=== PATIENT | female | born 1980 | race Caucasian/White ===

== ENCOUNTER 2024-11-19 12:04 | Outpatient (CLI) | payer BC, SELFPAY ==
[2024-11-19 13:31] LABS: Thyroid Stimulating Hormone 0.099 uIU/mL (0.465-4.680)
[2024-11-19 13:39] LABS: Free T4 Free Thyroxine 2.16 ng/dL (0.78-2.19)
--- OUTSIDE RECORDS SUMMARY | 2024-11-19 14:11 | XMS_ITS | Data Portability ---
Author Organization [facility] [place] Address [address] [place] [address] [address] [place] [address] Care Team Providers Care Fishing Worker Name Role Phone GIDEON ELDER Primary Care Provider Assessment Encounter Date Assessment Date Assessment LastModified by Organization Details LastModified Time 04/18/2022 04/18/2022 Annual gynecological exam performed. Patient will come back in a year unless there are new symptoms. Not available 04/18/2022 10:46:06 Plan of Treatment Reminders Order Date Submit Date Provider Last Modified By Organization Details Last Modified Time Details Appointments None recorded. Lab None recorded. Referral None recorded. Procedures None recorded. Surgeries None recorded. Imaging US, pelvis 2021 022 [address], [address], [place], [address], 18:02:09 US, transvagina l 2021 022 [address], [address], [place], [address], 18:02:09 Medication Orders progesteron e micronized 200 mg capsule 2021 022 [place] [id number], [address] [place], [address], 11:34:05 Patient TargetsNo targets recorded. Patient InstructionsNo instructions recorded. Reason for Referral None Reported. Results Created Date Observation Date Name Description Value Unit Range Abnormal Flag Note LastModifiedBy Organization Detail LastModifiedTime 03/03/20 22 03/03/2022 CBC W/DIF F WBC 8.1 10'3/ uL 3.6-10 .2 Not Available [facility] [address] [place], [address], 03/08/2022 17:47:33 03/03/20 22 03/03/2022 CBC W/DIF F RBC 4.70 10'6/ uL (based on docume nted legal sex) 4.10-5 .30 Not Available [facility] [address] [place], [address], 03/08/2022 17:47:33 03/03/20 22 03/03/2022 CBC W/DIF F HGB 13.4 g/dL (based on docume nted legal sex) 11.9-1 5.8 Not Available [facility] [address] [place], [address], 03/08/2022 17:47:33 03/03/20 22 03/03/2022 CBC W/DIF F HCT 42.1 % (based on docume nted legal sex) 37.4-4 8.3 Not Available [facility] [address] [place], [address], 03/08/2022 17:47:33 03/03/20 22 03/03/2022 CBC W/DIF F MCV 89.0 fL 82.0-9 9.0 Not Available [facility] [address] [place], [address], 03/08/2022 17:47:33 03/03/20 22 03/03/2022 CBC W/DIF F MCH 28.0 pg 27.0-3 3.0 Not Available [facility] [address] [place], [address], 03/08/2022 17:47:33 03/03/20 22 03/03/2022 CBC W/DIF F MCHC 32.0 g/dL 32.0-3 6.0 Not Available [facility] [address] [place] [address], [address], 03/08/2022 17:47:33 03/03/20 22 03/03/2022 CBC W/DIF F RDW 14.0 % 11.0-1 5.0 Not Available [facility] [address] [place], [address], 03/08/2022 17:47:33 03/03/20 22 03/03/2022 CBC W/DIF F plt 471 10'3/ uL 150-45 0 high Not Available [facility] [address] [place] [address], [address], 03/08/2022 17:47:33 03/03/20 22 03/03/2022 CBC W/DIF F MPV 10.4 fL 9.8-12 .7 Not Available [facility] [address] [place] [address], [address], 03/08/2022 17:47:33 03/03/20 22 03/03/2022 CBC W/DIF F NRBC's 0.00 % 0 Not Available [facility] [address] [place] [address], [address], 03/08/2022 17:47:33 03/03/20 22 03/03/2022 CBC W/DIF F absolute NRBCs 0.0 10'3/ uL 0 Not Available [facility] [address] [place] [address], [address], 03/08/2022 17:47:33 03/03/20 22 03/03/2022 CBC W/DIF F neutrophils 69.0 % 37.0-7 2.0 Not Available [facility] [address] [place] [address], [address], 03/08/2022 17:47:33 03/03/20 22 03/03/2022 CBC W/DIF F lymphocytes 20.0 % 16.0-4 8.0 Not Available [facility] [address] [place] [address], [address], 03/08/2022 17:47:33 03/03/20 22 03/03/2022 CBC W/DIF F monocytes 8.0 % 4.0-14 .0 Not Available [facility] [address] [place] [address], [address], 03/08/2022 17:47:33 03/03/20 22 03/03/2022 CBC W/DIF F eosinophils 2.0 % 0.0-9. 0 Not Available [facility] [address] [place] [address], [address], 03/08/2022 17:47:33 03/03/20 22 03/03/2022 CBC W/DIF F basophils 1.0 % 0.0-2. 0 Not Available [facility] [address] [place] [address], [address], 03/08/2022 17:47:33 03/03/20 22 03/03/2022 CBC W/DIF F immature granulocytes 0.0 % no define d refere nce range Not Available [facility] [address] [place] [address], [id number], 03/08/2022 17:47:33 03/03/20 22 03/03/2022 CBC W/DIF F absolute neutrophils 5.6 10'3/ uL 1.1-6. 0 Not Available [facility] [address] [place] [address], [address], 03/08/2022 17:47:33 03/03/20 22 03/03/2022 CBC W/DIF F absolute lymphocytes 1.6 10'3/ uL 0.7-3. 4 Not Available [facility] [address] [place], [address], 03/08/2022 17:47:33 03/03/20 22 03/03/2022 CBC W/DIF F absolute monocytes 0.6 10'3/ uL 0.3-1. 0 Not Available [facility] [address] [place], [address], 03/08/2022 17:47:33 03/03/20 22 03/03/2022 CBC W/DIF F absolute eosinophils 0.1 10'3/ uL 0.0-0. 6 Not Available [facility] [address] [place], [address], 03/08/2022 17:47:33 03/03/20 22 03/03/2022 CBC W/DIF F absolute basophils 0.1 10'3/ uL 0.0-0. 1 Not Available [facility] [address] [place], [address], 03/08/2022 17:47:33 03/03/20 22 03/03/2022 CBC W/DIF F absolute immature granulocytes 0.00 10'3/ uL 0.00-0 .10 3:19 AM: P indic ates parti al resul ts on a panel have been relea sed. Addit ional resul ts will follo w. 3:19 AM: This resul t has been final verif ied. No addit ional or de leon ed resul ts are expec donte. Not Available [facility] [address] [place], [address], 03/08/2022 17:47:33 03/03/20 22 03/03/2022 HEMOG LOBIN A1C hemoglobin A1C 5.1 % 0-5.6 The Ameri can Diabe candi Assoc iatio n recom mends that a prima ry goal of thera py shoul d be a HBA1C of < 7% and that physi williams meehan reeva luate the treat ment regim en in patie nts with HBA1C value s consi stent ly > 8%. <5.7% Lou l 5.7 - 6.4% Incre ased risk for diabe candi >=6.5 % Diagn ostic of diabe candi <7.0% Goal of thera py >8.0% Actio n sugge sted Not Available [facility] [address] [place], [address], 03/08/2022 17:47:34 03/03/20 22 03/03/2022 DHEA SULFA TE DHEA-sulfate 172 ug/dL Femal e Range s Age(y ) Range (ug/d L) 10-15 34-28 0 15-20 65-36 8 20-25 148-4 07 25-35 99-34 0 35-45 61-33 7 45-55 35-25 6 55-65 19-20 5 65-75 9-246 > 75 12-15 4 Not Available [facility] [address] [place], [address], 03/08/2022 17:47:34 03/03/20 22 03/03/2022 PROGE STERO NE progesterone 0.51 NG/mL This assay was perfo rmed using [employer] n reage nts and test kits. Value s obtai deepali with other assay metho ds or kits canno t be used inter de leon eably . Femal e Proge stero ne Range s: Folli cular phase 0.06- 0.89 ng/mL Ovula tion phase 0.12- 12.00 ng/mL Lutea l phase 1.83- 23.90 ng/mL Postm enopa usal< 0.05- 0.13 ng/mL Healt hy Pregn ant Women 1st Trime ster1 1.0-4 4.30 2nd Trime ster2 5.40- 83.30 3rd Trime ster5 8.70- 214.0 0 Not Available [facility] [address] [place], [address], 03/08/2022 17:47:35 03/03/20 22 03/03/2022 PROLA CTIN prolactin, total 18.30 NG/mL 4.79-2 3.30 This assay was perfo rmed using [employer] reage nts and test kits. Value s obtai deepali with other assay metho ds or kits canno t be used inter [facility] . Not Available [facility] [address] [place], [address], 03/08/2022 17:47:35 03/03/20 22 03/03/2022 FSH, LH, ESTRA DIOL estradiol 370.0 pg/mL This assay was perfo rmed using [employer] reage nts and test kits. Value s obtai deepali with other assay metho ds or kits canno t be used inter [facility] . Femal e Estra diol Range s: Folli cular phase 12.4- 233 pg/mL Ovula tion phase 41.0- 398 pg/mL Lutea l phase 22.3- 341 pg/mL Postm enopa usal< 5-138 pg/mL Healt hy Pregn ant Women 1st Trime ster1 54-32 43 pg/mL 2nd Trime ster1 561-2 1280 pg/mL 3rd Trime ster8 525-> 48394 pg/mL Not Available [facility] [address] [place], [address], 03/08/2022 17:47:35 03/03/20 22 03/03/2022 FSH, LH, ESTRA DIOL FSH 5.4 mIU/m L This assay was perfo rmed using [employer] reage nts and test kits. Value s obtai deepali with other assay metho ds or kits canno t be used inter [facility] . Femal es Folli cular : 3.5-1 2.5 mIU/m L Ovula tion: 4.7-2 1.5 mIU/m L Lutea l: 1.7-7 .7 mIU/m L Postm enopa use: 25.8- 134.8 mIU/m L Not Available [facility] [address] [place], [address], 03/08/2022 17:47:35 03/03/20 22 03/03/2022 FSH, LH, ESTRA DIOL LH 10.9 mIU/m L This assay was perfo rmed using [employer] reage nts and test kits. Value s obtai deepali with other assay metho ds or kits canno t be used inter de leon eably . Femal es Mid-F ollic ular: 2.4-1 2.6 mIU/m L Mid-C ycle: 14.0- 95.6 mIU/m L Mid-L uteal : 1.0-1 1.4 mIU/m L Postm enopa use: 7.7-5 8.5 mIU/m L Not Available [facility] [address] [place], [address], 03/08/2022 17:47:35 03/03/20 22 03/03/2022 HUMAN SEX HORMO NE JUANY NG GLOBU ODALYS sex hormone binding globulin 69.5 nmole s/L 18.2-1 35.5 Not Available [facility] [address] [place], [address], 03/08/2022 17:47:36 03/03/20 22 03/03/2022 TSH, REFLE X FREE T4 TSH 0.64 uIU/m L 0.30-5 .33 Not Available [facility] [address] [place], [address], 03/08/2022 17:47:36 03/03/20 22 03/03/2022 TESTO STERO NE, FREE( DIALY SIS) AND TOTAL (LC/M S/MS) testosterone , total 50 NG/dL 2-45 high For addit ional infor jose miguel braxton e refer to http: //matias wiggins.que stdia gnost ics.c om/fa q/Tot [facility] (This link is being provi ded for infor matio nal/ educa grecia l purpo ses only. ) This test was devel oped and its godfrey tical perfo rmanc e charles cteri stics have been deter mined by [facility]. It has not been clear ed or appro roseline by the FDA. This assay has been valid ated pursu ant to the CLIA regul ation s and is used for clini javed purpo ses. Not Available [facility] [address] [place], [address], 03/08/2022 17:47:37 03/03/2003/03/2022 TESTO STERO NE, FREE( DIALY SIS) AND TOTAL (LC/M S/MS) testosterone , free 3.5 pg/mL 0.1-6. 4 This test was devel oped and its godfrey tical perfo rmanc e charles cteri stics have been deter mined by [facility]. It has not been clear ed or appro roseline by the FDA. This assay has been valid ated pursu ant to the CLIA regul ation s and is used for clini javed purpo ses. Perfo rming Organ izati on Infor matio n: Site ID: [id number] Name: [facility]stic s-Ravi jacky Andradeen marshal Addre ss: [id number] [place] [address] Direc tor: Davis perkins M.D. Not Available [facility] [address] [place], [address], 03/08/2022 17:47:37 04/18/20 22 04/18/2022 IMAGE GUIDE D PAP AND HPV REGAR DLESS image guided Pap, HPV regardless of Pap result SEE RESULT S BELOW CASE REPOR T: Cytol ogy Gynec ologi javed Repor t Case: [id number] Autho ricaitlinn g Provi belkis: Leonardo Lopes MD Colle cted: 04/18 1305 Order ing Locat ion: [place] [facility] Recei roseline: 04/19 0226 First Scree n: Derian gabrielle, Alexandra Rescr een: Cecille hernandez, [place], [place] Speci men: Scree letitia Pap - Image d, Cervi x STATE MENT OF ADEQU ACY: Satis facto ry for evalu ation Trans forma tion zone compo nent prese nt FINAL DIAGN OSIS: Negat michoacano for Intra epith elial Lesio n or Jamilah shook (NIL) . Elect eitan pratikandrew popeye d by Cecille hernandez, [place], [place] on 2021 at 8:39 PM ----- ----- ----- ----- ----- ----- ----- ----- ----- ----- ----- ----- ----- ----- ----- ----- ----- ---- HPV RESUL TS: HPV mRNA E6/E7 : No HPV mRNA Detec donte NOTE: This high risk HPV mRNA assay detec ts fourt een high- risk HPV types (16, 18, 31, 33, 35, 39, 45, 51, 52, 56, 58, 59, 66, 68) witho ut diffe renti ation . COMME NT: Note: This speci men was revie wed by a Cytot echno logis t and/o r Patho logis t (as indic ated in this repor t) after evalu ation using the Thinp rep Imagi ng Syste m. CLINI JAVED INFOR MATIO N: Menst rual Statu s: LMP (if appli cable ): Clini javed Histo ry/Pr eviou s Pap: Type of Neopl steven (if appli cable ): Signi fican t Clini javed Findi ngs: Other Histo ry: Hormo tova (if appli cable ): PAP EDUCA GRECIA L NOTE: The Pap Test is a scree letitia test with an inher ent false negat michoacano rate. Liqui d-bas ed sampl ing may decre ase, but will not elimi elgin, false negat michoacano resul ts. A negat michoacano resul t does not precl ude the prese nce and/o r devel opmen t of disea se, since the prese nce of abnor mal cells in the sampl e depen ds on the locat ion of the lesio n and sampl ing techn ique. Arnol nued regul ar scree letitia is the best metho d of cance r preve ntion . If repor donte cytol ogic findi ng do not corre late with physi javed and/o r histo rical findi ngs, furth er inves tigat ion is recom olayinka d, as clini jaycee warra nted. Not Available [facility] [address], [place], [address], 04/22/2022 21:42:14 03/17/20 22 03/17/2022 US, pelvi s No observ ation record ed. [place] [address] [facility] [address], [place], [address], 03/17/2022 16:07:06 03/17/20 22 03/17/2022 US, trans vagin al No observ ation record ed. [place] [address] [facility] [address], [place], [address], 03/17/2022 16:07:15 03/17/20 22 03/17/2022 US, pelvi s No observ ation record ed. [email or web address] [address], [place], [address], 03/17/2022 20:01:11 03/17/20 22 03/17/2022 US, pelvi s No observ ation record ed. [email or web address], [place], [address], 03/17/2022 20:01:11 Result Notes None recorded. Procedures Surgical History Date Name Laterality Status Provider Name and Address Organization Details Recorded Time 2 HYSTEROSCOPY, WITH ENDOMETRIAL ABLATION (SURG) completed [facility] 06/13/2022 11:26:04 2 HYSTEROSCOPY, WITH ENDOMETRIAL ABLATION (SURG) completed [facility] 06/06/2022 11:27:48 2 Endometrial Ablation completed [facility] 06/09/2022 09:47:01 5 Date of Last Pap Smear completed [facility] 03/03/2022 09:44:49 0 completed [facility] 03/03/2022 09:44:49 8 Caesarean Section completed [facility] 06/09/2022 09:47:01 Ovarian Cystectomy completed [facility] 03/03/2022 09:45:00 Tubal Ligation completed [facility] 03/03/2022 09:45:00 Thyroid Surgery completed [facility] 03/03/2022 09:45:00 Colonoscopy completed [facility] 03/03/2022 09:45:00 Caesarean Section completed [facility] 03/03/2022 09:45:00 LEEP completed [facility] 06/09/2022 09:47:01 Dilation and Curettage completed [facility] 06/09/2022 09:47:01 Imaging Results Imaging Date Name Status LastModified by Organization Details LastModified Time 03/17/2022 US, pelvis completed [email or web address] [place] [address], [place], [address], 03/17/2022 16:07:06 03/17/2022 US, transvaginal completed [email or web address] [address], [place], [address], 03/17/2022 16:07:15 03/17/2022 US, pelvis completed [email or web address] [address], [place], [address], 03/17/2022 20:01:11 03/17/2022 US, pelvis completed [email or web address] [address], [place], [address], 03/17/2022 20:01:11 Procedure Notes None recorded. Medical Equipment None Reported. Allergies Allergen ID Allergen Name Allergen Category Reaction Reaction Severity Criticality Documentation Date Start Date Code Code System Note Provider Name and Address Organization Details Recorded Time 03450 amoxicill in medicatio n rash moderate Not available 03/03/2022 723 RxNorm Makeda Maggy [facility] 2 09:44:38 19666 Bactrim medicatio n hives severe Not available 03/03/2022 37159 9 RxNorm Makeda [facility] 2 09:44:38 Medications Name Sig Start Date Stop Date Status Note LastModified by Organization Details LastModified Time sulfamethoxazo le 800 mg-trimethopri m 160 mg tablet TAKE 1 TABLET BY MOUTH TWICE A DAY FOR 10 DAYS active Not Available Not Available No t Available progesterone micronized 200 mg capsule TAKE 1 CAPSULE EVERY DAY BY ORAL ROUTE FOR 12 DAYS. active Not Available Not Available No t Available hydrochlorothi azide 25 mg tablet TAKE 1 TABLET BY MOUTH EVERY DAY IN THE MORNING active Not Available Not Available No t Available levothyroxine 112 mcg tablet TAKE 2 TABLETS BY MOUTH DAILY BEFORE BREAKFAST . active Not Available Not Available No t Available Hydrochlorothi azide Plus 0.125 mg-50 mg tablet active Not Available Not Available Not Available ID NOW COVID-19 Test Kit TEST DIRECTED active Not Available Not Available No t Available Vitals Date Recorded Body height Body mass index (BMI) Body weight Systolic blood pressure Diastolic blood pressure Provider Name and Address Organization Details Last Updated DateTime 03/17/2022 173.99 cm 41.5 kg/m2 155746.0 9 g 124 mm[Hg] 91 mm[Hg] [facility] 2 14:33:58 Date Recorded Body height Body mass index (BMI) Body weight Systolic blood pressure Diastolic blood pressure Provider Name and Address Organization Details Last Updated DateTime 03/28/2022 173.99 cm 41.5 kg/m2 405909.0 9 g 137 mm[Hg] 96 mm[Hg] [facility] 2 10:22:05 Date Recorded Body height Body mass index (BMI) Body weight Systolic blood pressure Diastolic blood pressure Provider Name and Address Organization Details Last Updated DateTime 04/18/2022 173.99 cm 41.2 kg/m2 206650.9 g 125 mm[Hg] 91 mm[Hg] [facility] 2 10:47:28 Date Recorded Body height Body mass index (BMI) Body weight Systolic blood pressure Diastolic blood pressure Provider Name and Address Organization Details Last Updated DateTime 06/09/2022 173.99 cm 41.5 kg/m2 611840.0 9 g 123 mm[Hg] 90 mm[Hg] [facility] 2 09:46:39 Social History Question Answer Notes LastModified by Organizat ion Details LastModified Time Tobacco Smoking Status Never Smoker Ana Maria Diego [facility] 06/09/2022 09:30:06 Do You Have An Advance Directive? Yes Information n ot available 03/03/2022 What Is Your Level Of Alcohol Consumption? Occasional Information not available 03/03/2022 How Many Years Have You Consumed Alcohol? 21 Information not available 03/03/2022 Are You Blind Or Do You Have Difficulty Seeing? No Information n ot available 03/03/2022 What Is Your Level Of Caffeine Consumption? Moderate Information not available 03/03/2022 How Much Tobacco Do You Chew? None Information not available 03/03/2022 In The 14 Days Before Symptom Onset, Have You Had Close Contact With A Laboratory-confirm ed COVID-19 While That Case Was Ill? No Information n ot available 03/03/2022 In The 14 Days Before Symptom Onset, Have You Had Close Contact With A Person Who Is Under Investigation For COVID-19 While That Person Was Ill? No Information not available 03/03/2022 Have You Been To An Area Known To Be High Risk For COVID-19? No Information not available 03/03/2022 Are You Deaf Or Do You Have Serious Difficulty Hearing? No Information not available 03/03/2022 What Type Of Diet Are You Following? REGULAR Information n ot available 03/03/2022 What Is The Highest Grade Or Level Of School You Have Completed Or The Highest Degree You Have Received? 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 No Information not available 03/03/2022 Do You Use Protection During Sex? No Information not available 03/03/2022 Do You Use Your Seat Belt Or Car Seat Routinely? Yes Information not available 03/03/2022 Do You Have Smoke And Carbon Monoxide Detectors In Your Home? Yes Information not available 03/03/2022 How Much Tobacco Do You Smoke? No Information not available 03/03/2022 Do You Feel Stressed (tense, Restless, Nervous, Or Anxious, Or Unable To Sleep At Night)? [id number] Information not available 03/03/2022 Do You Use Any Illicit Or Recreational Drugs? No Information not available 03/03/2022 Do You Use Sunscreen Routinely? Yes Information not available 03/03/2022 Have You Used IV Drugs? No Information not available 03/03/2022 Sex: Unknown Functional Status Question Answer Note LastModified by Organizat ion Details LastModified Time Are you able to walk? YESWOREST Information not available 03/03/2022 What is your exercise level? Occasional Information not available 03/03/2022 Mental Status None recorded. Family History Relationship Description Onset Age of this Age Resolved Age Notes LastModified by Organization Details LastModified Time Son Diabetes mellitus Not available 2021 09:44:41 Maternal Grandmother Diabetes mellitus Not available 2021 09:44:41 Mother Blood coagulation disorder Not available 2021 09:44:41 Mother Hypertensive disorder Not available 2021 09:44:41 Mother Diabetes mellitus Not available 2021 09:44:41 Brother Hypertensive disorder Not available 2021 09:44:41 Paternal Grandmother Diabetes mellitus Not available 2021 09:44:41 Sister Hypertensive disorder Not available 2021 09:44:41 Medical History Condition Response Allergies (Food, seasonal, environmental ) Y History of STI Y Autoimmune disease Y Other Y Cancer Y Thyroid Problems Y Asthma Y Gynecological History Statement/Question Response Date of LMP 05/24/2022 On BCP's at Conception? N N Was last menstrual period normal N STIs/STDs N HPV Vaccine N Duration of Flow (days) 7 Current Control Method Tubal Ligat ion Age at First Child 17 Date of control 1980 Frequency of Cycle (Q days) 27 Sexually Active? Y Menses Monthly Y Age of first menstrual cycle 8 Date of Last Pap Smear 10/13/2014 Sexual Problems? N Desired Control Method Ablation LMP Definite 05/29/2000 N 04/08/2005 Obstetrics History GPAL:G 4 P 3 1 0 4 Type Value Full Term 3 Premature 1 Living 4 Total 4 Past Encounters Encounter ID Performer Location Encounter Start Date Encounter Closed Date Diagnosis/Indication Diagnosis SNOMED-CT Code Diagnosis ICD10 Code Diagnosis Note [id number] Kraig Lopes MD [facility] [address] [address] 03/03/2022 09:11:43 03/03/2022 10:26:07 Abnormal uterine bleeding 1493396846 9100 N93.9 [id number] Gloria Rivera [facility] [address] [address] 03/17/2022 13:43:48 03/17/2022 14:34:56 Pain in pelvis 01378444 R10.2 [id number] Kraig Lopes MD [facility] [address] [address] 03/17/2022 13:45:03 03/17/2022 16:02:12 Menorrhagia 992570117 N92.0 Dysmenorrhea 381274728 N 94.6 This patient is a 41-year-ol d female who presents for follow-up on episode of severe dysmenorrh ea and severe menorrhagi a. She has regular periods but 2 months ago to 3 months ago she missed a period/men ses and subsequent ly had a very heavy painful. She said it was profoundly painful and very heavy bleeding passing large clots. She came in for evaluation . Since that time she has had a regular period that was normal. Ultrasound was performed today. We reviewed ultrasound results together. Is fairly unremarkab le. Though, there is some irregulari ty to the endometriu m and the endometriu m is difficult to distinguis h from the myometrium . This may be adenomyosi s. She has a long history of irregular bleeding. She has never had irregular menses. Talked about follow-up. If she has another episode of painful heavy bleeding. We will treat her. We talked about treatment options. We spent over 20 minutes face-to-fa ce. More than 50% was counseling . She leans towards endometria l ablation if her heavy bleeding persist. [id number] Kraig Lopes MD [facility] [address] [address] 03/28/2022 09:54:21 03/28/2022 11:23:54 Menorrhagia [id number] N92.0 this patient is a 41-year-ol d female with severe menorrhagi a. We have agreed to perform endometria l ablation. She understand s the risks, benefits, and alternativ es. She has completed the informed consent process and is ready to proceed. [id number] Kraig Lopes MD [facility] [address] [address] 04/18/2022 10:22:55 04/18/2022 11:57:47 Abnormal uterine bleeding [id number] N93.9 Gynecologi c examination [id number] Z01.419 Annual gynecologi javed exam performed. Patient will come back in a year unless there are new symptoms. Suggest Calcium with Vitamin D if not eating in diet. Patient advised to get annual flu shot. Recommend yearly physicals and preform monthly breast exams. Genetic testing is available for patients with family history of cancer. Engage in safe sexual practices, use condoms. Encouraged to have daily exercise. Avoid tobacco and illicit drugs, moderation of alcohol. If BMI greater than 25 dietary consult advised. If you have any questions please call or email. Mammogram - ordered Pap - today [id number] Kraig Lopes MD [facility] [address] [address] 06/09/2022 09:29:25 06/09/2022 10:43:50 Menorrhagia [id number] N92.0 this patient is a 41-year-ol d female presents for follow-up on menorrhagi a. She underwent endometria l ablation. She has no abnormal symptoms. She is recovering normally it sounds. Will observe for bleeding. Health Concerns Section Related Observation LastModified by Organization Detai ls LastModified Time None Recorded Concern Status LastModified by Organization Details LastModified Time None Recorded Advance Directives Directive Y: Payers Encounter Date Sequence Insurance Name Policy Number Policy Ozuna Covered Member ID Ozuna Member ID Guarantor Name 03/17/2022 1 FORMERLY [facility] (MEDICAID HMO) [id number] Sara Yohannes [id number] Sara Yohannes 03/28/2022 1 FORMER[facility] (MEDICAID HMO) [id number] Sara Yohannes [id number] Sara Yohannes 04/18/2022 1 [facility]MER[facility] (MEDICAID HMO) [id number] Sara Yohannes [id number] Sara Yohannes 06/09/2022 1 FORMERLY [facility] (MEDICAID HM) [id number] Sara Yohannes [id number] Sara Yohannes Notes Date Note Type Note Provider Name and Address Organization Details Recorded Time 03/17/2022 text/html This patient is a 41-year-old female who presents for follow-up on episode of severe dysmenorrhea and severe menorrhagia. She has regular periods but 2 months ago to 3 months ago she missed a period/menses and subsequently had a very heavy painful. She said it was profoundly painful and very heavy bleeding passing large clots. She came in for evaluation. Since that time she has had a regular period that was normal. Ultrasound was performed today. We reviewed ultrasound results together. Is fairly unremarkable. Though, there is some irregularity to the endometrium and the endometrium is difficult to distinguish from the myometrium. This may be adenomyosis. She has a long history of irregular bleeding. She has never had irregular menses. Talked about follow-up. If she has another episode of painful heavy bleeding. We will treat her. We talked about treatment options. We spent over 20 minutes [id number]. More than 50% was counseling. She leans towards endometrial ablation if her heavy bleeding persist. Kraig Lopes MD [address], [place], [address], [facility] 03/17/2022 15:11:38 03/28/2022 text/html This patient is a 41-year-old female presents for follow-up on severe menorrhagia. We talked about her history again. We talked about her bleeding. She has a history of failed medical treatment. Shehas tried medical treatment and it failed. She has had a trial of OCP's and she has used Mirena. talked about procedures and surgeries. She is considering hysterectomy. We discussed endometrial ablation. We agreed to perform endometrial ablation. We spent more than 15 minutes [id number]. More than 50% was counseling. I explained the procedure in detail. The patient understands the procedure. The procedure was described to the patient in great detail. the patient also understands the risks. The risks were also explained in detail. She understands that injuries May occur during surgery. She understands these injuries can result in hospitalization, more surgery, and severe illness. She understands there is risk of hemorrhage and infection. Kraig Lopes MD [address], [place], [address], [facility] 03/28/2022 11:09:14 04/18/2022 text/html Annual GYNReport ed bypatient.History: no gynecologic complaints Menstrual cycle:aub, menorrhagia Urinary symptoms:No hematuria; No incontinence Vulva:No genital lesion Vagina:Normal vaginal discharge Breast:No breast pain; No breast lump; No nipple discharge Sexual complaints:No sexual complaints Menopausal Symptoms:No menopausal symptoms; Normal vaginal lubrication Psychological symptoms:No depression; No anxiety Preventive measures:Encourage self breast examination; Encourage regular exercise Kraig Lopes MD [address], [place], [address], [facility] 04/18/2022 11:41:25 06/09/2022 text/html this patient is a 41-year-old female presents for follow-up on menorrhagia. She underwent endometrial ablation. She has no abnormal symptoms. She is recovering normally it sounds. Will observe for bleeding. Kraig Lopes MD [address], [place], [address], [facility] 06/09/2022 10:19:05 OBGyn Episode No OBEpisode recorded.
--- OUTSIDE RECORDS SUMMARY | 2024-11-19 14:11 | XMS_ITS | Data Portability ---
Author Organization [facility] Address [address] [place] [address] Care Team Providers Care Individual Small Group Instructor Name Role Phone SUN ELDER Primary Care Provider Assessment Encounter Date Assessment Date Assessment LastModified by Organization Details LastModified Time 07/19/2023 07/19/2023 F/u in 4 mo for routine labs. [email or web address] Not available 07/19/2023 13:06:14 12/13/2023 12/13/2023 Sections of the HPI, exam and assessment completed by NATALY Cortez student and have been reviewed by me. I agree with the exam findings, assessment and plan except where specifically documented or amended. -Sun Elder, [facility], PAUmeshC [email or web address] Not available 12/13/2023 15:01:31 Plan of Treatment Reminders Order Date Submit Date Provider Last Modified By Organization Details Last Modified Time Details Appointments None recorded. Lab TSH + free T4, serum 2023 [facility], [address] [facility], [address], [place], [address], 12:16:57 T3, free, serum or plasma 2023 024 [facility], [address] [facility], [address], [place], [address], 4 12:16:58 cytology report, thin prep, smear or scraping, cervical or vaginal - brush and broom 2023 024 [facility], [address] [facility], [address], [place], [address], 4 11:10:32 lh + FSH, serum 2023 024 [facility], [address] [facility], [address], [place], [address], 4 08:34:38 estradiol , serum 2023 024 [facility], [address] [facility], [address], [place], [address], 4 08:34:36 progester one, serum 2023 024 [facility], [address] [place] [address], [address], [place], [address], 4 08:34:36 CMP, serum or plasma 2023 024 [facility], [address], [place], [address], 4 08:34:34 lipid panel, serum 2023 024 [facility], [address], [place], [address], 4 08:34:34 CBC w/ auto diff 2023 024 [facility], [address], [place], [address], 4 08:34:37 HbA1c (hemoglob in A1c), blood 2023 024 [facility], [address], [place], [address], 4 08:34:35 TSH + free T4, serum 2023 024 [facility], [address], [place], [address], 4 08:34:33 pathology study - SKIN TAGS TO BACK, SHOULDER, ABDOMEN, AND AXILLA 2022 023 [facility], [facility], [address], [place], [address], 3 19:08:31 TSH + free T4, serum 2022 023 [facility], [address] [place] [address], [address], [place], [address], 3 08:22:10 T3, free, serum or plasma 2022 023 [facility], [address] [place] [address], [address], [place], [address], 3 08:22:10 Referral endocrino logy referral [address] - Endocrinology , [address], [place], [address], 4 08:01:23 obstetric judy and gynecolog ist referral 2023 024 ketan Márquez MD, [address] [facility] , [address], [place], [address], 4 12:07:10 endocrino logy referral - PREFERS TO STAY IN [place] 2022 023 milady Oakes MD, [address], [place], [address], 3 11:49:54 Procedures None recorded. Surgeries None recorded. Imaging barium swallow study 2023 024 [place] [facility] (Radiology), [address] [place], [address], 4 08:02:55 MAMMO, screening , bilateral 2023 024 [email or web address] [place] [facility] ([facility]), [address] [place], [address], 4 11:35:05 Medication Orders fluticaso ne propionat e 50 mcg/actua tion nasal spray,felice pension 2023 024 [id number], [address], [place], [address], 4 10:05:29 levothyro xine 112 mcg tablet 2023 024 [facility], [address], [place], [address], 4 11:11:26 Ventolin HFA 90 mcg/actua tion aerosol inhaler 2023 024 [facility] [address], [place], [address], 4 08:35:57 hydrochlo rothiazid e 25 mg tablet 2023 024 [facility], [address], [place], [address], 4 10:07:06 azithromy christopher 250 mg tablet 2023 024 [email or web address] [facility], [address], [place], [address], 4 13:30:00 hydrochlo rothiazid e 25 mg tablet 2022 023 [facility], [address], [place], [address], 3 10:57:04 levothyro xine 112 mcg tablet 2022 023 cmeliecer [id number], [address], [place], [address], 4 11:11:26 Patient TargetsNo targets recorded. Patient Instructions Encounter Date Encounter Id Patient Instructions Last Modified By Organization Details Last Modified Time 07/19/2023 [id number] A healthy lifestyle: care instructions [email or web address] Not available 07/19/2023 10:48:03 12/13/2023 [id number] A healthy lifestyle: care instructions [email or web address] Not available 12/13/2023 10:03:07 01/03/2024 [id number] A healthy lifestyle: care instructions [email or web address] Not available 01/03/2024 14:53:36 Reason for Referral Endocrinology Referral for M alignant tumor of thyroid gland [place]REF[place] IN [place] Referring Physician: [facility], Encounter Date: 07/19/2023 Endocrinology Referral for M alignant tumor of thyroid gland Referring Physician: [facility], Encounter Date: 12/13/2023 Client Business Manager And Gynecologis t Referral for Screening for malignant neoplasm of cervix Referring Physician: Sun Elder [facility], Encounter Date: 12/13/2023 Results Created Date Observation Date Name Description Value Unit Range Abnormal Flag Note LastModifiedBy Organization Detail LastModifiedTime 07/19/2007/20/2023 TSH+F REE T4 TSH 0.119 uIU/m L 0.450- 4.500 below low normal Not Available [facility] ([facility]) [address], [place], [address], 07/20/2023 08:22:10 07/19/20 23 07/20/2023 TSH+F REE T4 T4,free(dire ct) 2.10 NG/dL 0.82-1 .77 above high normal Not Available [facility] ([facility]) [address] [facility], [place], [address], 07/20/2023 08:22:10 07/19/20 23 07/20/2023 TRIIO DOTHY TERRI E (T3), FREE triiodothyro nine (T3), free 3.1 pg/mL 2.0-4. 4 Not Available [facility] ([facility]) [address] [facility], [place], [address], 07/20/2023 08:22:10 08/09/20 23 08/24/2023 PATHO LOGY REPOR T . Commbruce t Mater ial submi tted: . body - SKIN TAGS, BACK, SHOUL GUSTABO, ABDOM EN, AXILL A RECEI ISABEL IN ONE CONTA INER Not Available [facility] ([facility]) [address] [facility], [place], [address], 08/24/2023 19:08:31 08/09/20 23 08/24/2023 PATHO LOGY REPOR T . Arash t Clini nicole provi ded ICD-1 0: L91.8 Not Available [facility] (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 TMZ 08/24 0923 Local Not Available [facility] ([facility]) [address] [facility], [place], [address], 08/24/2023 19:08:31 08/09/20 23 08/24/2023 PATHO LOGY REPOR T . Commen t Maci nye d: . Felipe marquez MD, [place] topat holog ist Not Available [facility] ([facility]) [address] [facility], [place], [address], 08/24/2023 19:08:31 08/09/2008/24/2023 PATHO LOGY REPOR T . Commen t Gross descr iptio n: . 1 Conta iner, forma jhonathan-f illed , label ed with patie nt ident ifica tion. SKIN TAGS, BACK, SHOUL GUSTABO, ABDOM EN, AXILL A RECEI ISABEL IN ONE CONTA INER: RECEI ISABEL ARE 4 FRAGM ENT(S ) OF WRINK LED POLYP OID BROWN SKIN TISSU E MEASU RING 0.7 X 0.5 X 0.4 CM; 0.5 x 0.4 x 0.3 CM AND 0.4 x 0.3 x 0.2 CM. THE SURGI ANTONIA GORDY N IS INKED BLUE, GREEN , RED AND ORANG E. THE SPECI MEN IS BISEC KUSUM AND SUBMI TTED IN CASSE TTE(S ) a1-a2 . THERE ARE 6 PIECE S TOTAL . SVO/S VO 08/22 0434 Local Not Available [facility] ([facility]) [address] [facility], [place], [address], 08/24/2023 19:08:31 08/09/20 23 08/24/2023 PATHO LOGY REPOR T . Commen t Patho logis t provi ded ICD-1 0: L91.9 , D22.5 Not Available [facility] ([facility]) [address] [facility], [place], [address], 08/24/2023 19:08:31 08/09/20 23 08/24/2023 PATHO HECTOR York Doylebruce [place] CPT . 46137 1 Not Available [facility] ([facility]) [address] [facility], [place], [address], 08/24/2023 19:08:31 12/13/19 24 12/14/2023 TSH+F REE T4 TSH 0.107 uIU/m L 0.450- 4.500 below low normal Not Available [facility] ([facility]) [address] [facility], [place], [address], 12/14/2023 08:34:33 12/13/19 24 12/14/2023 TSH+F REE T4 T4,free(dire ct) 2.06 NG/dL 0.82-1 .77 above high normal Not Available [facility] ([facility]) [address] [facility], [place], [address], 12/14/2023 08:34:33 12/13/19 24 12/14/2023 LIPID PANEL WITH LDL/H DL RATIO cholesterol, total 180 mg/dL 100-19 9 Not Available [facility] ([facility]) [address] [place], [address], 12/14/2023 08:34:34 12/13/19 24 12/14/2023 LIPID PANEL WITH LDL/H DL RATIO triglyceride s 107 mg/dL 0-149 Not Available [facility]) [address] [place], [address], 12/14/2023 08:34:34 12/13/19 24 12/14/2023 LIPID PANEL WITH LDL/H DL RATIO HDL cholesterol 44 mg/dL >39 Not Available [facility]) [address] [place], [address], 12/14/2023 08:34:34 12/13/19 24 12/14/2023 LIPID PANEL WITH LDL/H DL RATIO VLDL cholesterol antonia 19 mg/dL 5-40 Not Available [facility]) [address] [place], [address], 12/14/2023 08:34:34 12/13/19 24 12/14/2023 LIPID PANEL WITH LDL/H DL RATIO LDL chol calc ([facility]) 117 mg/dL 0-99 above high normal Not Available [facility] ([facility]) [address] [facility], [place], [address], 12/14/2023 08:34:34 12/13/19 24 12/14/2023 LIPID PANEL WITH LDL/H DL RATIO LDL/HDL ratio 2.7 ratio 0.0-3. 2 LDL/H DL Ratio Men Women 1/2 Avg.R isk 1.0 1.5 Avg.R isk 3.6 3.2 2X Avg.R isk 6.2 5.0 3X Avg.R isk 8.0 6.1 Not Available [facility] ([facility]) [address] [place], [address], 12/14/2023 08:34:34 12/13/19 24 12/14/2023 COMP. METAB OLIC PANEL (14) glucose 91 mg/dL 70-99 Not Available [facility] ([facility]) [address] [place], [address], 12/14/2023 08:34:34 12/13/19 24 12/14/2023 COMP. METAB OLIC PANEL (14) BUN 13 mg/dL 6-24 Not Available [facility] ([facility]) [address] [place], [address], 12/14/2023 08:34:34 12/13/19 24 12/14/2023 COMP. METAB OLIC PANEL (14) creatinine 0.84 mg/dL 0.57-1 .00 Not Available [facility] ([facility]) [address] [place], [address], 12/14/2023 08:34:34 12/13/19 24 12/14/2023 COMP. METAB OLIC PANEL (14) eGFR 88 mL/mi n/1.7 3 >59 Not Available [facility] ([facility]) [address] [facility], [place], [address], 12/14/2023 08:34:34 12/13/19 24 12/14/2023 COMP. METAB OLIC PANEL (14) BUN/creatini ne ratio 15 9-23 Not Available [facility]) [address] [facility], [place], [address], 12/14/2023 08:34:34 12/13/19 24 12/14/2023 COMP. METAB OLIC PANEL (14) sodium 140 mmol/ L 134-14 4 Not Available [facility] ([facility]) [address] [facility], [place], [address], 12/14/2023 08:34:34 12/13/19 24 12/14/2023 COMP. METAB OLIC PANEL (14) potassium 3.7 mmol/ L 3.5-5. 2 Not Available [facility] ([facility]) [address] [facility], [place], [address], 12/14/2023 08:34:34 12/13/19 24 12/14/2023 COMP. METAB OLIC PANEL (14) chloride 99 mmol/ L 96-106 Not Available [facility] ([facility]) [address] [facility], [place], [address], 12/14/2023 08:34:34 12/13/19 24 12/14/2023 COMP. METAB OLIC PANEL (14) carbon dioxide, total 25 mmol/ L 20-29 Not Available [facility] ([facility]) [address] [facility], [place], [address], 12/14/2023 08:34:34 12/13/19 24 12/14/2023 COMP. METAB OLIC PANEL (14) calcium 9.6 mg/dL 8.7-10 .2 Not Available [facility] ([facility]) [address], [place], [address], 12/14/2023 08:34:34 12/13/19 24 12/14/2023 COMP. METAB OLIC PANEL (14) protein, total 7.6 g/dL 6.0-8. 5 Not Available [facility] ([facility]) [address], [place], [address], 12/14/2023 08:34:34 12/13/19 24 12/14/2023 COMP. METAB OLIC PANEL (14) albumin 4.2 g/dL 3.9-4. 9 Not Available [facility] ([facility]) [address], [place], [address], 12/14/2023 08:34:34 12/13/19 24 12/14/2023 COMP. METAB OLIC PANEL (14) globulin, total 3.4 g/dL 1.5-4. 5 Not Available [facility] ([facility]) [address] [place], [address], 12/14/2023 08:34:34 12/13/19 24 12/14/2023 COMP. METAB OLIC PANEL (14) A/G ratio 1.2 1.2-2. 2 Not Available [facility] ([facility]) [address] [place], [address], 12/14/2023 08:34:34 12/13/19 24 12/14/2023 COMP. METAB OLIC PANEL (14) bilirubin, total 0.4 mg/dL 0.0-1. 2 Not Available [facility] ([facility]) [address], [place], [address], 12/14/2023 08:34:34 12/13/19 24 12/14/2023 COMP. METAB OLIC PANEL (14) alkaline phosphatase 95 IU/L 44-121 Not Available [facility]) [address] [place], [address], 12/14/2023 08:34:34 12/13/19 24 12/14/2023 COMP. METAB OLIC PANEL (14) AST (SGOT) 14 IU/L 0-40 Not Available [facility] ([facility]) [address] [place], [address], 12/14/2023 08:34:34 12/13/19 24 12/14/2023 COMP. METAB OLIC PANEL (14) ALT (SGPT) 12 IU/L 0-32 Not Available [facility] ([facility]) [address] [place], [address], 12/14/2023 08:34:34 12/13/19 24 12/14/2023 HEMOG LOBIN A1C hemoglobin A1C 5.2 % 4.8-5. 6 Predi abete s: 5.7 - 6.4 Diabe candi: >6.4 Glyce aidan contr ol for adult s with diabe candi: <7.0 Not Available [facility] ([facility]) [address] [place], [address], 12/14/2023 08:34:35 12/13/19 24 12/14/2023 PROGE STERO NE progesterone 2.9 NG/mL Folli cular phase 0.1 - 0.9 Lutea l phase 1.8 - 23.9 Ovula tion phase 0.1 - 12.0 Pregn ant First trime ster 11.0 - 44.3 Secon d trime ster 25.4 - 83.3 Third trime ster 58.7 - 214.0 Postm enopa usal 0.0 - 0.1 Not Available [facility] ([facility]) [address] [place], [address], 12/14/2023 08:34:36 12/13/19 24 12/14/2023 ESTRA DIOL estradiol 101.0 pg/mL Adult Femal e Range Folli cular phase 12.5 - 166.0 Ovula tion phase 85.8 - 498.0 Lutea l phase 43.8 - 211.0 Postm enopa usal <6.0 - 54.7 Pregn yuly 1st trime ster 215.0 - >4300 .0 Vaishali ECLIA metho dolog y Not Available [facility] ([facility]) [address] [facility], [place], [address], 12/14/2023 08:34:36 12/13/19 24 12/14/2023 CBC WITH DIFFE RENTI AL/PL ATELE T WBC 7.6 x10e3 /uL 3.4-10 .8 Not Available [facility] ([facility]) [address] [place], [address], 12/14/2023 08:34:37 12/13/19 24 12/14/2023 CBC WITH DIFFE RENTI AL/PL ATELE T RBC 4.72 x10e6 /uL 3.77-5 .28 Not Available [facility] ([facility]) [address] [place], [address], 12/14/2023 08:34:37 12/13/19 24 12/14/2023 CBC WITH DIFFE RENTI AL/PL ATELE T hemoglobin 13.8 g/dL 11.1-1 5.9 Not Available [facility] ([facility]) [address] [place], [address], 12/14/2023 08:34:37 12/13/19 24 12/14/2023 CBC WITH DIFFE RENTI AL/PL ATELE T hematocrit 40.2 % 34.0-4 6.6 Not Available [facility] ([facility]) [address] [place], [address], 12/14/2023 08:34:37 12/13/19 24 12/14/2023 CBC WITH DIFFE RENTI AL/PL ATELE T MCV 85 fL 79-97 Not Available [facility] ([facility]) [address] [facility], [place], [address], 12/14/2023 08:34:37 12/13/19 24 12/14/2023 CBC WITH DIFFE RENTI AL/PL ATELE T MCH 29.2 pg 26.6-3 3.0 Not Available [facility] ([facility]) [address] [facility], [place], [address], 12/14/2023 08:34:37 12/13/19 24 12/14/2023 CBC WITH DIFFE RENTI AL/PL ATELE T MCHC 34.3 g/dL 31.5-3 5.7 Not Available [facility] ([facility]) [address] [facility], [place], [address], 12/14/2023 08:34:37 12/13/19 24 12/14/2023 CBC WITH DIFFE RENTI AL/PL ATELE T RDW 13.0 % 11.7-1 5.4 Not Available [facility] ([facility]) [address] [facility], [place], [address], 12/14/2023 08:34:37 12/13/19 24 12/14/2023 CBC WITH DIFFE RENTI AL/PL ATELE T platelets 441 x10e3 /uL 150-45 0 Not Available [facility] ([facility]) [address] [facility], [place], [address], 12/14/2023 08:34:37 12/13/19 24 12/14/2023 CBC WITH DIFFE RENTI AL/PL ATELE T neutrophils 65 % notest ab. Not Available [facility] ([facility]) [address] [facility], [place], [address], 12/14/2023 08:34:37 12/13/19 24 12/14/2023 CBC WITH DIFFE RENTI AL/PL ATELE T lymphs 22 % notest ab. Not Available [facility] ([facility]) [address] [facility], [place], [address], 12/14/2023 08:34:37 12/13/19 24 12/14/2023 CBC WITH DIFFE RENTI AL/PL ATELE T monocytes 6 % notest ab. Not Available [facility] ([facility]) [address] [facility], [place], [address], 12/14/2023 08:34:37 12/13/19 24 12/14/2023 CBC WITH DIFFE RENTI AL/PL ATELE T eos 6 % notest ab. Not Available [facility] ([facility]) [address] [facility], [place], [address], 12/14/2023 08:34:37 12/13/19 24 12/14/2023 CBC WITH DIFFE RENTI AL/PL ATELE T basos 1 % notest ab. Not Available [facility] ([facility]) [address] [facility], [place], [address], 12/14/2023 08:34:37 12/13/19 24 12/14/2023 CBC WITH DIFFE RENTI AL/PL ATELE T neutrophils (absolute) 4.9 x10e3 /uL 1.4-7. 0 Not Available [facility] ([facility]) [address] [facility], [place], [address], 12/14/2023 08:34:37 12/13/19 24 12/14/2023 CBC WITH DIFFE RENTI AL/PL ATELE T lymphs (absolute) 1.7 x10e3 /uL 0.7-3. 1 Not Available [facility] ([facility]) [address] [facility], [place], [address], 12/14/2023 08:34:37 12/13/19 24 12/14/2023 CBC WITH DIFFE RENTI AL/PL ATELE T monocytes(ab solute) 0.5 x10e3 /uL 0.1-0. 9 Not Available [facility] ([facility]) [address] [place], [address], 12/14/2023 08:34:37 12/13/19 24 12/14/2023 CBC WITH DIFFE RENTI AL/PL ATELE T eos (absolute) 0.4 x10e3 /uL 0.0-0. 4 Not Available [facility] ([facility]) [address] [facility], [place], [address], 12/14/2023 08:34:37 12/13/19 24 12/14/2023 CBC WITH DIFFE RENTI AL/PL ATELE T baso (absolute) 0.1 x10e3 /uL 0.0-0. 2 Not Available [facility] ([facility]) [address] [place], [address], 12/14/2023 08:34:37 12/13/19 24 12/14/2023 CBC WITH DIFFE RENTI AL/PL ATELE T immature granulocytes 0 % notest ab. Not Available [facility] ([facility]) [address] [place], [address], 12/14/2023 08:34:37 12/13/19 24 12/14/2023 CBC WITH DIFFE RENTI AL/PL ATELE T immature grans (abs) 0.0 x10e3 /uL 0.0-0. 1 Not Available [facility] ([facility]) [address] [place], [address], 12/14/2023 08:34:37 12/13/19 24 12/14/2023 FSH AND LH LH 10.8 mIU/m L Adult Femal e Range Folli cular phase 2.4 - 12.6 Ovula tion phase 14.0 - 95.6 Lutea l phase 1.0 - 11.4 Postm enopa usal 7.7 - 58.5 Not Available [facility] ([facility]) [address] [place], [address], 12/14/2023 08:34:38 12/13/19 24 12/14/2023 FSH AND LH FSH 10.8 mIU/m L Adult Femal e Range Folli cular phase 3.5 - 12.5 Ovula tion phase 4.7 - 21.5 Lutea l phase 1.7 - 7.7 Postm enopa usal 25.8 - 134.8 Not Available [facility] ([facility]) [address] [place], [address], 12/14/2023 08:34:38 01/03/20 24 01/05/2024 IGP, APTIM A HPV, RFX 16/18 ,45 HPV aptima Negati ve negati ve This nucle ic acid ampli ficat ion test detec ts fourt een high- risk HPV types (16,1 8,31, 33,35 ,39,4 5,51, 52,56 ,58,5 9,66, 68) witho ut diffe renti ation . Not Available [facility] ([facility]) [address] [facility], [place], [address], 01/08/2024 11:10:32 01/03/20 24 01/08/2024 IGP, APTIM A HPV, RFX 16/18 ,45 diagnosis: Commen t NEGAT ERLINDA FOR INTRA EPITH ELIAL LESIO N OR MALIG YULIA . THIS SPECI MEN WAS RESCR EENED PART OF OUR QUALI TY CONTR OL PROGR AM. Not Available [facility] ([facility]) [address] [facility], [place], [address], 01/08/2024 11:10:32 01/03/20 24 01/08/2024 IGP, APTIM A HPV, RFX 16/18 ,45 specimen adequacy: Commen t Satis facto ry for evalu ation . Endoc ervic al and/o r squam ous metap lasti c cells (endo cervi antonia compo nent) are prese nt. Not Available [facility] ([facility]) [address] [place], [address], 01/08/2024 11:10:32 01/03/20 24 01/08/2024 IGP, APTIM A HPV, RFX 16/18 ,45 clinician provided ICD10: Arash martinez Z01.4 19 Not Available [facility] ([facility]) [address] [place], [address], 01/08/2024 11:10:32 01/03/20 24 01/08/2024 IGP, APTIM A HPV, RFX 16/18 ,45 performed by: Arash resendiz, Cytot echno logis t (ASCP ) Not Available [facility] ([facility]) [address] [place], [address], 01/08/2024 11:10:32 01/03/20 24 01/08/2024 IGP, APTIM A HPV, RFX 16/18 ,45 QC reviewed by: Arash schultz, Cytot echno logis t (ASCP ) Not Available [facility] ([facility]) [address] [place], [address], 01/08/2024 11:10:32 01/03/20 24 01/08/2024 IGP, APTIM A HPV, RFX 16/18 ,45 . . Not Available [facility] ([facility]) [address] [place], [address], 01/08/2024 11:10:32 01/03/20 24 01/08/2024 IGP, APTIM A HPV, RFX 16/18 ,45 note: Arash martinez The Pap smear is a scree letitia test desig deepali to aid in the detec tion of aubrey ligna nt and malig nant condi tions of the uteri ne cervi x. It is not a diagn ostic proce dure and shoul d not be used as the sole means of detec ting cervi antonia cance r. Both false -posi tive and false -nega tive repor ts do occur . Not Available [facility] ([facility]) [address] [place], [address], 01/08/2024 11:10:32 01/03/20 24 01/08/2024 IGP, APTIM A HPV, RFX 16/18 ,45 test methodology: Commen t This liqui d based ThinP rep(R ) pap test was darline palumbo with the use of an image guide zoran rose Not Available [facility] ([facility]) [address] [place], [address], 01/08/2024 11:10:32 01/03/20 24 01/08/2024 IGP, APTIM A HPV, RFX 16/18 ,45 HPV genotype reflex Commen t Crite tomeka not met, HPV Genot ype not perfo rmed. Not Available [facility] ([facility]) [address] [place], [address], 01/08/2024 11:10:32 05/29/20 24 05/30/2024 TSH+F REE T4 TSH 0.222 uIU/m L 0.450- 4.500 below low normal Not Available [facility] ([facility]) [address] [place], [address], 05/30/2024 12:16:57 05/29/20 24 05/30/2024 TSH+F REE T4 T4,free(dire ct) 2.04 NG/dL 0.82-1 .77 above high normal Not Available [facility] ([facility]) [address] [place], [address], 05/30/2024 12:16:57 05/29/20 24 05/30/2024 TRIIO DOTHY TERRI E (T3), FREE triiodothyro nine (T3), free 2.8 pg/mL 2.0-4. 4 Not Available [facility] ([facility]) [address] [place], [address], 05/30/2024 12:16:58 02/02/20 24 01/31/2024 US, thyro id No observ ation record ed. [address], [place], [address], 02/05/2024 14:51:52 Result Notes None recorded. Problems Name Problem SNOMED Code Status Onset Date Resolution Date Notes Provider Name and Address Organization Details Recorded Time Asthma 782911936 Active 2020 NATALY SCHMIDT Attn: Mike leal,[address] [facility], [place], [address], [place] - [facility] 2 10:20:06 Hypothyroidism 45744391 Active 2020 NATALY SCHMIDT Attn: Mike leal,[address] [facility], [place], [address], [facility] - [facility] 2 10:20:04 Malignant tumor of thyroid gland 320885771 Active 2020 2014 at [facility]. NATALY SCHMIDT Attn: Mike leal,[address] [facility], [place], [address], [place] - [facility] 2 10:20:02 Essential hypertension 62324284 Active 2021 NATALY SCHMIDT Attn: Mike leal,[address] [facility], [place], [address], [place] - [facility] 2 10:40:36 Problem Notes None recorded. Procedures Surgical History Date Name Laterality Status Provider Name and Address Organization Details Recorded Time 01/03/20 24 Date of Last Pap Smear completed Kaci Andersen RN [place] - [place] 01/09/2024 16:51:28 08/28/19 04 loop electrosurgical excision procedure completed ALEXANDER Lopez Attn: Accounting, [address] [place], [address], [facility] - [facility] 01/03/2024 14:52:28 Tubal Ligation completed MYLES Ramirez [place] - [place] 01/03/2024 13:31:02 Endometrial Ablation completed Shayna Duran Sumeet [place] - [place] 01/03/2024 13:31:11 Imaging Results Imaging Date Name Status LastModified by Organiz ation Details LastModified Time 01/31/2024 US, thyroid completed [address] [place], [address], 02/05/2024 14:51:52 Procedure Notes None recorded. Medical Equipment None Reported. Allergies Allergen ID Allergen Name Allergen Category Reaction Reaction Severity Criticality Documentation Date Start Date Code Code System Note Provider Name and Address Organization Details Recorded Time 034532 amoxicill in medicatio n rash Not available Not available 10/02/2020 723 RxNorm Not Available Not Available Not Available 620009 Bactrim medicatio n hives severe Not available 09/14/2021 36560 9 RxNorm Not Available Not Available Not Available Medications Name Sig Start Date Stop Date Status Note LastModified by Organization Details LastModified Time loperamide 2 mg capsule 10/02 completed Not Available Not Available Not Available azithromyci n 250 mg tablet TAKE 2 TABLETS BY MOUTH TODAY, THEN TAKE 1 TABLET DAILY FOR 4 DAYS DIRECTED 01/02 completed Not Available Not Available Not Available benzonatate 200 mg capsule TAKE 1 CAPSULE BY MOUTH UP TO 3 TIMES A DAY NEEDED FOR COUGH. active Not Available Not Available No t Available Debrox 6.5 % ear drops INSTILL 5 DROPS INTO AFFECTED EAR(S) BY OTIC ROUTE 2 TIMES PER DAY X7 DAYS 10/18 completed Not Available Not Available Not Available sulfamethox azole 800 mg-trimetho prim 160 mg tablet 09/14 completed Not Available Not Available Not Available progesteron e micronized 200 mg capsule TAKE 1 CAPSULE EVERY DAY BY ORAL ROUTE FOR 12 DAYS. 10/18 completed Not Available Not Available Not Available fluoxetine 10 mg capsule Take 1 capsule every day by oral route in the morning for 30 days. 09/14 completed Not Available Not Available Not Available levothyroxi ne 200 mcg tablet TAKE 1 TAB BY MOUTH EVERY DAY BEFORE MEALS FOR 30 DAYS FOR HYPOTHYRO IDISM 2024 active Not Available Not Available Not Avai lable hydrochloro thiazide 25 mg tablet TAKE 1 TABLET EVERY DAY BY ORAL ROUTE IN THE MORNING FOR 90 DAYS, FOR HIGH BLOOD PRESSURE. active Not Available Not Available No t Available methylpredn isolone 4 mg tablets in a dose pack TAKE 6 TABLETS ON DAY 1 DIRECTED ON PACKAGE AND DECREASE BY 1 TAB EACH DAY FOR A TOTAL OF 6 DAYS active Not Available Not Available No t Available fluticasone propionate 50 mcg/actuati on nasal spray,suspe nsion SPRAY 1 SPRAY TWICE A DAY BY INTRANASA L ROUTE DIRECTED FOR 30 DAYS, FOR NASAL CONGESTIO N. active Not Available Not Available No t Available doxycycline hyclate 100 mg tablet TAKE 1 TABLET BY MOUTH TWICE A DAY FOR 7 DAYS 07/19 completed Not Available Not Available Not Available levothyroxi ne 112 mcg tablet TAKE 2 TABLETS BY MOUTH DAILY BEFORE BREAKFAST 2023 active Not Available Not Available Not Avai lable Ventolin HFA 90 mcg/actuati on aerosol inhaler Inhale 2 puffs every 4-6 hours by inhalatio n route as needed for 30 days. 2023 active Not Available Not Available Not Avai lable azithromyci n 500 mg tablet TAKE 1 TABLET BY MOUTH EVERY DAY FOR 5 DAYS 07/19 completed Not Available Not Available Not Available Ciprodex 0.3 %-0.1 % ear drops,suspe nsion INT 4 DROPS IN BOTH EARS BID AND PLACE COTTON IN EAR AND LEAVE IN FOR 20 MINUTES 10/02 completed Not Available Not Available Not Available progesteron e 10/18 completed Not Available Not Available Not Available ID NOW COVID-19 Test Kit TEST DIRECTED 01/12 completed Not Available Not Available Not Available Vitals Date Recorded Body height Body mass index (BMI) Body weight Oxygen saturation Oxygen saturation in Arterial blood by Pulse oximetry Heart rate Respiratory rate Systolic blood pressure Diastolic blood pressure Provider Name and Address Organization Details Last Updated DateTime 3 173.99 cm 37.9 kg/m2 845277. 57 g 100 % 100 % 98 /min 16 /min 122 mm[Hg] 80 mm[Hg] Samantha Miller [place] - [facility] 3 10:38:57 Date Recorded Body height Body mass index (BMI) Body weight Oxygen saturation Oxygen saturation in Arterial blood by Pulse oximetry Heart rate Systolic blood pressure Diastolic blood pressure Provider Name and Address Organization Details Last Updated DateTime 3 173.99 cm 37.9 kg/m2 211973. 87 g 96 % 96 % 83 /min 125 mm[Hg] 85 mm[Hg] Brandee Brizuela MA [facility] 3 09:48:26 Date Recorded Respiratory rate Provider Name a nd Address Organization Details Last Updated DateTime 08/09/2023 18 /min NATALY SCHMIDT Attn: Accounting,[address] [place], [address], [facility] 08/09/2023 16:58:48 Date Recorded Body height Body mass index (BMI) Body weight Oxygen saturation Oxygen saturation in Arterial blood by Pulse oximetry Heart rate Systolic blood pressure Diastolic blood pressure Provider Name and Address Organization Details Last Updated DateTime 4 173.99 cm 38.3 kg/m2 331785. 85 g 99 % 99 % 106 /min 135 mm[Hg] 85 mm[Hg] Brandee Brizuela [place] - [facility] 4 09:04:26 Date Recorded Respiratory rate Body temperature Heart rate Provider Name and Address Organization Details Last Updated DateTime 12/13/2023 18 /min 98.7 [degF] 90 /min NATALY SCHMIDT Attn: Accounting, [address] [place], [address], [facility] 12/14/2023 08:37:43 Date Recorded Body height Body mass index (BMI) Body weight Systolic blood pressure Diastolic blood pressure Provider Name and Address Organization Details Last Updated DateTime 01/03/2024 173.99 cm 38.4 kg/m2 352617.0 8 g 130 mm[Hg] 84 mm[Hg] MYLES Ramirez [place] - [facility] 4 13:48:08 Date Recorded Body height Body mass index (BMI) Body weight Oxygen saturation Oxygen saturation in Arterial blood by Pulse oximetry Heart rate Systolic blood pressure Diastolic blood pressure Provider Name and Address Organization Details Last Updated DateTime 4 173.99 cm 39.6 kg/m2 852359. 49 g 99 % 99 % 92 /min 129 mm[Hg] 85 mm[Hg] Brandee Brizuela [place] - [facility] 4 09:14:13 Date Recorded Respiratory rate Provider Name a nd Address Organization Details Last Updated DateTime 05/29/2024 18 /min NATALY SCHMIDT Attn: [facility], [place], [address], [facility] 05/29/2024 09:29:15 Social History Question Answer Notes LastModified by Organizat ion Details LastModified Time Tobacco Smoking Status Never Smoker TAMRA [place], [facility] 10/02/2020 10:34:10 Do You Have An Advance Directive? No Information not available 09/14/2021 What Is Your Level Of Alcohol Consumption? Occasional dhayesma Information not available 01/12/2022 Are You Blind Or Do You Have Difficulty Seeing? No Information not available 09/14/2021 What Is Your Level Of Caffeine Consumption? Heavy Information not available 05/29/2024 In The 14 Days Before Symptom Onset, Have You Had Close Contact With A Laboratory-confir med COVID-19 While That Case Was Ill? No Information not available 09/14/2021 In The 14 Days Before Symptom Onset, Have You Had Close Contact With A Person Who Is Under Investigation For COVID-19 While That Person Was Ill? No Information not available 09/14/2021 Have You Been To An Area Known To Be High Risk For COVID-19? No Information not available 09/14/2021 Are You Currently Employed? Yes Information not available 09/14/2021 Are You Deaf Or Do You Have Serious Difficulty Hearing? No Information not available 09/14/2021 Do You Or Have You Ever Used E-cigarettes Or Vape? Never Used Electronic Cigarettes Information not available 10/02/2020 Are There Any Guns Present In Your Home? No Information not available 09/14/2021 Live Alone Or With Others? With Others Information not available 10/02/2020 Do You Have A High School Diploma Or Higher Education? Yes Information not available 09/14/2021 Do You Sometimes Have To Miss Your Medical Appointments Due To Difficult Getting Transportation? No Information not available 09/14/2021 Do You Feel Unfairly Treated Due To Things Such As Race, Age, Gender, Disability Or Some Other Reason? No Information not available 09/14/2021 Do You Feel Physically And Emotionally Safe While Living At Home? Yes Information not available 09/14/2021 Do You Feel Physically And Emotionally Safe In Your Neighborhood Or Other Public Places? Yes Information not available 09/14/2021 What Was The Date Of Your Most Recent Tobacco Screening? 05/29/2024 Information not available 05/29/2024 How Many Children Do You Have? 4 Information not available 10/02/2020 What Is Your Relationship Status? Domestic Partner Information not available 09/14/2021 Do You Use Your Seat Belt Or Car Seat Routinely? Yes Information not available 09/14/2021 Do You Have Smoke And Carbon Monoxide Detectors In Your Home? Yes Information not available 09/14/2021 Are You Passively Exposed To Smoke? No Information no t available 09/14/2021 Do You Or Have You Ever Used Smokeless Tobacco? Never Used Smokeless Tobacco Information not available 10/02/2020 How Much Tobacco Do You Smoke? No Information not available 10/02/2020 General Stress Level High Information not available 10/02/2020 Do You Feel Stressed (tense, Restless, Nervous, Or Anxious, Or Unable To Sleep At Night)? EE7470-9 Information not available 09/14/2021 Do You Use Sunscreen Routinely? Yes Information not available 09/14/2021 On What Date Was Tobacco Cessation Counseling Provided? 05/29/2024 Information not available 05/29/2024 Sex: Female Functional Status Question Answer Note LastModified by Organization D etails LastModified Time Are you able to care for yourself? No Information n ot available 10/02/2020 Mental Status None recorded. Family History Relationship Description Onset Age of this Age Resolved Age Notes LastModified by Organization Details LastModified Time Unspecified Relation Diabetes mellitus Not available 2020 10:30:10 Son Diabetes mellitus Not available 2020 10:30:10 Mother Disorder of lung Not available 2020 10:30:22 Mother Hypertensive disorder Not available 2020 10:30:42 Father Hypertensive disorder Not available 2020 10:30:42 Father Heart disease Not available 2020 10:32:16 Maternal Grandfather Parkinson's disease Not available 2020 10:30:52 Notes:Cancer Arm shakes real ly bad as older - Grandfather and Father Medical History Condition Response Coronary Artery Disease N Other N High Blood Pressure N Atrial Fibrillation N Thyroid Problems Y Kidney or Bladder Problems N Blood Clots N COPD N Depression N GI Problems N Skin Problems N Anemia N Heart Attack ([place]) N Anxiety Disorder Y Diabetes N Muscle, Joint, or Bone Problems N Seizures/Epilepsy N Acid Reflux (GERD) N Cancer N Stroke N Asthma N Allergies N ADHD N High Cholesterol N Hepatitis N Liver Disease N Headaches N Heart Failure N Osteoporosis N Gynecological History Statement/Question Response Abnormal Pap Y Date of Last Mammogram Flow Heavy Date of LMP STIs/STDs Y Duration of Flow (days) 7 Age at Menarche 8 Current Control Method Tubal Ligat ion Age at First Child 17 Sexually Active? Y Date of Last Pap Smear 01/03/2024 Sexual Problems? N LMP Definite Obstetrics History GPAL:G 4 P 4 0 0 4 Type Value Multiple Births 0 Full Term 4 Induced 0 Spontaneous 0 Premature 0 Living 4 Ectopics 0 Total 4 Immunizations Vaccine Type Date Status Note Provider Nam e and Address Organization Details Recorded Time COVID-19, mRNA, LNP-S, PF, 100 mcg/0.5mL dose or 50 mcg/0.25mL dose 1 completed TAMRA [place], [place] - [facility] 05/29/2024 09:02:26 COVID-19, mRNA, LNP-S, PF, 100 mcg/0.5mL dose or 50 mcg/0.25mL dose 1 completed TAMRA [place], [place] - [facility] 05/29/2024 09:02:27 Influenza, split virus, quadrivalent, preservative 10/16/201 8 completed Brandee Brizuela MA null, [place] - [facility] 05/29/2024 09:02:46 Influenza, split virus, trivalent, PF 4 completed NATALY SCHMIDT Attn: Accounting,[address], [place], [address], [place] - [facility] 05/29/2024 10:40:21 Past Encounters Encounter ID Performer Location Encounter Start Date Encounter Closed Date Diagnosis/Indication Diagnosis SNOMED-CT Code Diagnosis ICD10 Code Diagnosis Note [id number] NATALY RODRIGUEZ [facility]ly [facility] C[facility] [address] [place] [address] 10/02/2020 08:05:35 10/02/2020 11:53:32 Depressive disorder 80992579 F32.9 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 She is happy with salary but is having panic attacks as she no longer has days off and has increased work responsibi lity. She feels her boss is always txting her and threatens to fire her if does not do certain assignment s even if she is off work. She not gets chest pain, feelings of being overwhelme d, crying episodes 2-3 times per day. SHe is irritable and having a really hard time. She denies alcohol use. She has SI a few months ago but not recently. no plan. Will start on prozac daily and f./u one month. - advised counseling -Patient was educated on his prescribed medication s, rationale for medication s, dosing indication s, adverse reactions, black box warning, dosing indication s, SE (e.g., decreased libido, weight gain, gynecomast ia, and galactorrh ea) and the risks and benefits. -Call center with questions/ concerns. Go to ER or call 911 for crisis (e.g., suicidal behaviors, suicidal ideations, intent or plan emerge). Additional ly, patient has suicide hotline #[phone]. 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 She has thryoid surgery and has been following with [facility] endocrinol yoni. She has had trouble getting into appoitnmen ts due to COVID. Last US was two years ago and was normal. Has not has TSH checked in a long time. She needs new endocrinol ogy in the area as she has trouble getting to [facility]. - records- endo- TSH Asthma 672630154 J45.90 9 Patient diagnosed with asthma as child. Has not had to use inhaler in a while. She does have inhaler on hand but it is a few years old. Dysphagia 81037505 R13.1 0 Patient started having choking episodes with meat about a year ago. episodes were sporadic and usually just with meat. Not it is everytime she eats meat or rice. does not happen with fluids. If she eats meat it no longer goes down and she has to make herself vomit to bring it back up. She has hx of thryoid cancer. denies reflux or heart burn. Overweight 491227060 E66 .3 per patient she is overweight . Trouble losing it. [id number] NATALY SCHMIDT [facility] [address] [place] [address] 09/14/2021 10:49:16 09/16/2021 07:26:32 Laryngitis 12348538 J04.0 x3 daysvoice restincrea se fluid intakehumi difier at bedsidehot tea with lemon/josefa ysalt water garglesOTC cough suppressan tf/u with any new or worsening sx Viral syndrome 243545328 B34.9 PCR COVID Depression screening 171 831930 Z13.31 PHQ 10 [id number] NATALY SCHMIDT [facility] [address] [place] [address] 01/12/2022 16:11:34 01/13/2022 11:05:26 Malignant tumor of thyroid gland 409606815 C73 20 lb weight gain x3 monthsno change in diet or activityat tributes to thyroid, will re-check todaytakes 2 tabs of levo 112 mcg and 1 tab on monday Depression screening 171 400835 Z13.31 PHQ 1 Otalgia of left ear 1010 836639 H92.02 x3 wksunknown causefeels like popping and pressure, a/w headachesP Ex- mild dried cerumen adhered to L TM, no tragal/pin na tenderness reassured pttrial debrox ear dropsf/u if symptoms do not improve Elevated blood-pressure reading without diagnosis of hypertension 733071733 R03.0 BP 140/86, 158/100att ributes headaches to ear pressureno other sxf/u in 1 wk for BP check [id number] Brandee Brizuela [place] [facility] [address] [place] [address] 01/20/2022 10:11:06 01/21/2022 08:51:18 [id number] NATALY SCHMIDT [facility] [address] [place] [address] 02/02/2022 15:19:49 02/03/2022 14:29:43 Essential hypertension 98491222 I10 02/02/22: BP 132/88c/w HCTZ 25 today 158/1025/1 04/18: BP 140/86, 158/100sta rt HCTZ 25f/u in 1 wk for BP check [id number] NATALY SCHMIDT [facility] [address] [place] [address] 10/18/2022 10:46:41 10/18/2022 11:24:16 Depression screening 766609991 Z13.31 PHQ 0 Screening for malignant neoplasm of cervix 809490483 Z12.[address] Lopes 04/2022, normaltuba l ablation 05/2022, no periods since procedure Screening for malignant neoplasm of breast 735651274 Z12.39 last mammogram 8 yrs agoout of insurance in 1 wk- unable to completef/ u once receive insurance and will order Morbid obesity 887401511 E66.01 due for routine labs Hypothyroidism 67238913 E03.9 re-check today Malignant tumor of thyroid gland 153875630 C73 10/18/22:wa s following with [facility] in 2019will re-refer to endocrine for f/u once establishe s insurance again 01/12/22:20 lb weight gain x3 monthsno change in diet or activityat tributes to thyroid, will re-check todaytakes 2 tabs of levo 112 mcg and 1 tab on monday per Guilherme Miller PA-C note 10/02/2020: 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 She has thryoid surgery and has been following with [facility] endocrinol yoni. She has had trouble getting into appointmen ts due to COVID. Last US was two years ago and was normal. Has not has TSH checked in a long time. Essential hypertension 51892555 I10 10/18/22:BP 124/82c/w HCTZ 25 02/02/22: BP 132/88c/w HCTZ 25 today 158/1025/1 04/18: BP 140/86, 158/100sta rt HCTZ 25f/u in 1 wk for BP check Asthma 864144760 J45.90 9 uses PRN with season changes [id number] NATALY SCHMIDT [facility] [address] [place] [address] 07/19/2023 10:33:17 07/19/2023 11:30:46 Essential hypertension 82895565 I10 07/19/23:B P 122/80c/w HCTZ 25 10/18/22:BP 124/82c/w HCTZ 25 02/02/22: BP 132/88c/w HCTZ 25 today 158/1025/1 04/18: BP 140/86, 158/100sta rt HCTZ 25f/u in 1 wk for BP check Hypothyroidism 90013321 E03.9 07/19/23:t akes 112 mcg BID everyday except monday 112 mcg QDpt did not complete US or return to office for repeat labsdoes not want to change thyroid dose until after Sep 2023 due to her weddingif levels still abnormal, will order US thyroidre- check TSH, T4, T3 10/18/22: TSH low, T4 is highreferr ed to endocrine and ordered US thyroid STAT Malignant tumor of thyroid gland 244527639 C73 07/19/23:r efer to endocrine, wants to stay in [place] 10/18/22:wa s following with [facility] in 2019will re-refer to endocrine for f/u once establishe s insurance again 01/12/22:20 lb weight gain x3 monthsno change in diet or activityat tributes to thyroid, will re-check todaytakes 2 tabs of levo 112 mcg and 1 tab on monday per Guilherme Miller PA-C note 10/02/2020: 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 She has thryoid surgery and has been following with [facility] endocrinol yoni. She has had trouble getting into appointmen ts due to COVID. Last US was two years ago and was normal. Has not has TSH checked in a long time. Depression screening 171 778789 Z13.31 PHQ 0 Screening for malignant neoplasm of cervix 281468271 Z12.[address] Lopes 04/2022, normaltuba l ablation 05/2022, no periods since procedure Screening for malignant neoplasm of breast 042736246 Z12.39 07/19/23:w ants to wait until after her weddingwil l order at f/u appt 10/202309/28/22:las t mammogram 8 yrs agoout of insurance in 1 wk- unable to completef/ u once receive insurance and will order Obesity 768095411 E66.9 lost 20 lbs since 09/2022 Chronic cough 10273580 R 05.3 x1 yroccurs in the morningcou ghs up clear sputumslee ps with mouth open and snoresdeni es GERD sxh/o mild asthmaPEx- nltrial humidifier in bedroomtri al antihistam ine Snoring 25595811 R06.83 will discuss sleep study at f/u visit [id number] NATALY SCHMIDT [facility] [address] [place] [address] 08/09/2023 09:37:00 08/09/2023 10:44:22 Multiple skin tags 743623764 L91.8 skin tag removalPEx - skin tag to R sided bra line, R shoulder, abdomen, and L axillatole rated procedure wellsent pathology [id number] NATALY SCHMIDT [facility] [address] [address] [place] [address] 12/13/2023 08:50:01 12/13/2023 10:03:39 Malignant tumor of thyroid gland 570149907 C73 12/13/23: requesting endocrine referral, refill levo 07/19/23:r efer to endocrine, wants to stay in [place] 10/18/22:wa s following with [facility] in 2019will re-refer to endocrine for f/u once establishe s insurance again 01/12/22:20 lb weight gain x3 monthsno change in diet or activityat tributes to thyroid, will re-check todaytakes 2 tabs of levo 112 mcg and 1 tab on monday per MChela Miller PA-C note 10/02/2020: 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 She has thryoid surgery and has been following [facility]. She has had trouble getting into appointmen ts due to COVID. Last US was two years ago and was normal. Has not has TSH checked in a long time. Hypothyroidism 16659719 E03.9 12/13/23: continue 112 mcg BID, requesting endocrinol ogist referralTS H, T4 ordered. if levels are abnormal, will order US 07/19/23:t akes 112 mcg BID everyday except monday 112 mcg QDpt did not complete US or return to office for repeat labsdoes not want to change thyroid dose until after Sep 2023 due to her weddingif levels still abnormal, will order US thyroidre- check TSH, T4, T3 10/18/22: TSH low, T4 is highreferr ed to endocrine and ordered US thyroid STAT Obesity 756522692 E66.9 BMI 38.3discus sed increasing exercise and healthier food options, high protein, low fat diet Screening for malignant neoplasm of breast 180189281 Z12.39 12/13/23: due for mammo 07/19/23:w ants to wait until after her weddingwil l order at f/u appt 10/202309/28/22:las t mammogram 8 yrs agoout of insurance in 1 wk- unable to completef/ u once receive insurance and will order Screening for malignant neoplasm of cervix 729935420 Z12.4 12/13/23: requesting new [employer]PER[employer] referral completed by Dr. Lopes 04/2022, normaltuba l ablation 05/2022, no periods since procedure Non-menopa usal hot flash [id number] 82556 R23.2 wants to know if she is going through menopausen ight sweats x1 morequesti ng to check hormones Productive cough -green sputum 619595733 R09.3 x6 daysno relief with OTC medswill treat with abx Nasal congestion 2027277 0 R09.81 no relief with nasal decongesta nt pillstrial flonase nasal spray rx Essential hypertension [id number] I10 12/13/23BP 135/85c/w HCTZ 25, refill 07/19/23:B P 122/80c/w HCTZ 25 10/18/22:BP 124/82c/w HCTZ 25 02/02/22: BP 132/88c/w HCTZ 25 today 158/1025/1 04/18: BP 140/86, 158/100sta rt HCTZ 25f/u in 1 wk for BP check Asthma [id number] J45.90 9 uses PRN with season changes Depression screening 171 [id number] Z13.31 PHQ 0 [id number] Chayito Armendariz NP-C [place] [address] [address] [place] [address] 01/03/2024 13:07:50 01/04/2024 16:09:25 Screening mammography [id number] Z12.31 Patient educated on the importance of annual breast cancer screenings with mammograph y. Patient's pcp already ordered screening mammogram. pt advised to complete mammogram. Routine gy necologic examination done [id number] 9101 Z01.419 -Educated on the importance of SBE and awareness. -Discussed the importance of cervical cancer screenings -Educated osteoporos is prevention including calcium rich foods, weight bearing exercise.- Discussed the importance of exercise.- Nutrition discussed and the importance of a diet rich in fruits, vegetable, whole grains, and lean proteins.- Counseled regarding prevention of STD's and screening options, condom use and prevention .-Advised avoidance of tobacco, alcohol, and drugs.-Dis cussed sun safety and the importance of sunscreen. Body mass index 30+ - obesity [id number] Z68.38 Pt educated on risks and importance of lifestyle modificati ons. Pt reports will continue to follow up with PCP. [id number] NATALY SCHMIDT [facility]ly [facility], [facility] [place] [address] 05/29/2024 08:44:10 05/29/2024 09:41:41 Depression screening [id number] Z13.31 PHQ 0 Dysphagia [id number] R13.1 0 x2 monthsstre ss inducedocc urs with meats, chicken, bread, tries to swallow and then vomitsno odynophagi aPEx- nlordered barium swallow study Hypothyroidism [id number] E03.9 05/29/24: US thyroid 01/31/24- thyroidect latha present with no abnormal tissue or lymph node shownhas appt with endocrine [place] ting to re-check thyroid levels today due to weight gain 12/13/23: continue 112 mcg BID, requesting endocrinol ogist referralTS H, T4 ordered. if levels are abnormal, will order US 07/19/23:t akes 112 mcg BID everyday except monday 112 mcg QDpt did not complete US or return to office for repeat labsdoes not want to change thyroid dose until after Sep 2023 due to her weddingif levels still abnormal, will order US thyroidre- check TSH, T4, T3 10/18/22: TSH low, T4 is highreferr ed to endocrine and ordered US thyroid STAT Administra tion of influenza vaccine [id number] Z23 Health Concerns Section Related Observation LastModified by Organization Detai ls LastModified Time None Recorded Concern Status LastModified by Organization Details LastModified Time None Recorded Advance Directives Directive N: Payers Encounter Date Sequence Insurance Name Policy Number Policy Ozuna Covered Member ID Ozuna Member ID Guarantor Name 07/19/2023 1 [facility] (MEDICAID HMO) [id number] [facility] [id number] [facility] 07/19/2023 1 [place] [id number] Sara Sheffield [id number] 2 [facility] 08/09/2023 1 [facility] (MEDICAID HMO) [id number] Kacie Yohannes [id number] [facility] 08/09/2023 1 [place] [id number] Sara Sheffield [id number] 2 [facility] 12/13/2023 1 [place] [id number] [facility] [id number] 2 [facility] 01/03/2024 1 [place] [id number] Sara [facility] [id number] 2 [facility] 05/29/2024 1 [place] [id number] [id number] Sara [facility] [id number] 2 [facility] Notes Date Note Type Note Provider Name and Address Organization Details Recorded Time 07/19/2023 text/html Pt presents to re-establish care and med refills. States that she did not complete US thyroid due to insurance not calling her to approve. C/o cough x1 yr. Occurs in the morning, lasts a couple hrs and goes away once she clears my throat and coughs up clear mucus. Reports that she snores and sleeps with her mouth open all night. Worse with weather changes. Unsure if it is related to her asthma. Denies SOB. NATALY SCHMIDT Attn: [address] [place], [address], [facility] 07/19/2023 14:02:52 08/09/2023 text/html Pt presents for skin tag removal. NATALY SCHMIDT Attn: [address] [place], [address], [facility] 08/09/2023 16:59:06 12/13/2023 text/html Sara is a 43 y/o F presenting to the clinic c/o sore throat, cough and stuffy nose. She reports she started feeling sick last and had rhinorrhea. She has not been checking her temperature, but reports feeling warm and had chills. She reports a sore throat and is coughing up phlegm that is yellow-green in color. She is afebrile today. She also reports she lost her voice and it is difficult to swallow food. She is drinking teas and warm liquids. She has been using ibuprofen and a nasal decongestant with minimal relief. She reports a canker sore on her tongue x3 days. She denies any SOB, chest pain, nausea, vomiting, diarrhea. C/o night sweats on most days of the week for the past month. Her last menses was May of 2022 due to ablation. She is requesting an assembler finger [employer] referral. She reports her gums are receding with minimal bleeding and concerned that it may be due to her hypothyroidism. NATALY SCHMIDT Attn: [address] [place], [address], [facility] 12/14/2023 08:38:19 01/03/2024 text/html Annual GYNReport ed bypatient.History:no gynecologic complaints Menstrual cycle:no menses related to uterine ablation Urinary symptoms:No hematuria; No incontinence Vulva:No genital lesion Vagina:Normal vaginal discharge Breast:No breast pain; No breast lump; No nipple discharge Current Contraception:Satisfi ed with current contraception; Monogamous relationship; Tubal ligation Sexual complaints:No sexual complaints; No pain during intercourse; Normal libido Menopausal Symptoms:No menopausal symptoms; Normal vaginal lubrication Psychological symptoms:No depression; No anxiety; No PMDD Preventive measures:Encourage self breast examination; Encourage regular exercise; Encourage no tobacco use; Encourage regular mammograms starting age 40; Followed with Q3 year pap smear and high risk HPV typing; Needs to schedule mammogram Pt is here for annual. pt denies any complaints. ALEXANDER Lopez Attn: [address] [place], [address], [facility] 01/03/2024 14:57:06 05/29/2024 text/html Pt presents with difficulty swallowing x2 months. States that she has had increased stress due to losing his job and stress triggers swallowing issues. Reports that when she tries to swallow chicken, meat or bread substances it gets stuck and she vomits multiple times per day. No difficulty with swallowing liquids, salads, fruits, or veggies. Denies odynophagia. NATALY SCHMIDT Attn: [address] [place], [address], [facility] 05/29/2024 10:56:00 OBGyn Episode Ob Episode Information Episode Created Date Number of Fetuses Patient Bloodtype Patient rh Status Prepregnancy Weight lbs Domestic Partner Domestic Partner Phone Father Name Data Management Consultant Status 10/02/19 21 1 CLOSED Fetus Data First Name Last Name Admitted to NICU Weight (g) Sex Living Outcome Pediatric Complications Fetus ID Race Codes Race Delivery Type [id number] Kole Calculation Initial Kole Date Initial Exam Date Initial Exam Provider Initial Ultrasound Date Last Menstrual Period Date Ultra Sound Weeks Gestation 0 Eighteen To Twenty Week Kole Update Ultra Sound Date Fundal Height At Umbil Quickening Date Ultra Sound Latest Weeks Gestation Final Kole Confirmed By Final Kole Confirmed Date Final Kole Date Ultra Sound Latest Days Gestation 0 0 Menstrual History Last Menstrual Date Menses Monthly On Bcp Conception Prior Menses Frequency Hcg Plus Date Menarche Onset Age Delivery Information Delivery Date Delivery Type Labor Anesthesia Weeks Gestation Incision Type Labor Labor Length Hrs Delivered By Post Complications Tubal Sterilization Discharge Date Comments 9 Discharge Information Feeding Method Contraceptive Method Maternal HG B and HCT Levels Ob Episode Information Episode Created Date Number of Fetuses Patient Bloodtype Patient rh Status Prepregnancy Weight lbs Domestic Partner Domestic Partner Phone Father Name Data Management Consultant Status 10/02/19 21 1 CLOSED Fetus Data First Name Last Name Admitted to NICU Weight (g) Sex Living Outcome Pediatric Complications Fetus ID Race Codes Race Delivery Type [id number] Kole Calculation Initial Kole Date Initial Exam Date Initial Exam Provider Initial Ultrasound Date Last Menstrual Period Date Ultra Sound Weeks Gestation 0 Eighteen To Twenty Week Kole Update Ultra Sound Date Fundal Height At Umbil Quickening Date Ultra Sound Latest Weeks Gestation Final Kole Confirmed By Final Kole Confirmed Date Final Kole Date Ultra Sound Latest Days Gestation 0 0 Menstrual History Last Menstrual Date Menses Monthly On Bcp Conception Prior Menses Frequency Hcg Plus Date Menarche Onset Age Delivery Information Delivery Date Delivery Type Labor Anesthesia Weeks Gestation Incision Type Labor Labor Length Hrs Delivered By Post Complications Tubal Sterilization Discharge Date Comments 4 Discharge Information Feeding Method Contraceptive Method Maternal HG B and HCT Levels Ob Episode Information Episode Created Date Number of Fetuses Patient Bloodtype Patient rh Status Prepregnancy Weight lbs Domestic Partner Domestic Partner Phone Father Name Data Management Consultant Status 10/02/19 21 1 CLOSED Fetus Data First Name Last Name Admitted to NICU Weight (g) Sex Living Outcome Pediatric Complications Fetus ID Race Codes Race Delivery Type [id number] Kole Calculation Initial Kole Date Initial Exam Date Initial Exam Provider Initial Ultrasound Date Last Menstrual Period Date Ultra Sound Weeks Gestation 0 Eighteen To Twenty Week Kole Update Ultra Sound Date Fundal Height At Umbil Quickening Date Ultra Sound Latest Weeks Gestation Final Kole Confirmed By Final Kole Confirmed Date Final Kole Date Ultra Sound Latest Days Gestation 0 0 Menstrual History Last Menstrual Date Menses Monthly On Bcp Conception Prior Menses Frequency Hcg Plus Date Menarche Onset Age Delivery Information Delivery Date Delivery Type Labor Anesthesia Weeks Gestation Incision Type Labor Labor Length Hrs Delivered By Post Complications Tubal Sterilization Discharge Date Comments 8 Discharge Information Feeding Method Contraceptive Method Maternal HG B and HCT Levels Ob Episode Information Episode Created Date Number of Fetuses Patient Bloodtype Patient rh Status Prepregnancy Weight lbs Domestic Partner Domestic Partner Phone Father Name Data Management Consultant Status 10/02/19 21 1 CLOSED Fetus Data First Name Last Name Admitted to NICU Weight (g) Sex Living Outcome Pediatric Complications Fetus ID Race Codes Race Delivery Type [id number] Kole Calculation Initial Kole Date Initial Exam Date Initial Exam Provider Initial Ultrasound Date Last Menstrual Period Date Ultra Sound Weeks Gestation 0 Eighteen To Twenty Week Kole Update Ultra Sound Date Fundal Height At Umbil Quickening Date Ultra Sound Latest Weeks Gestation Final Kole Confirmed By Final Kole Confirmed Date Final Kole Date Ultra Sound Latest Days Gestation 0 0 Menstrual History Last Menstrual Date Menses Monthly On Bcp Conception Prior Menses Frequency Hcg Plus Date Menarche Onset Age Delivery Information Delivery Date Delivery Type Labor Anesthesia Weeks Gestation Incision Type Labor Labor Length Hrs Delivered By Post Complications Tubal Sterilization Discharge Date Comments 2 Discharge Information Feeding Method Contraceptive Method Maternal HG B and HCT Levels
== END 2024-11-19 12:05 | disposition home or self-care (01) ==
LOC: ANHLAB 12:08
PROVIDERS: PCP Physician Assistant; Visit Provider Internal Medicine
DX: C73 Malignant neoplasm of thyroid gland (principal); E89.0 Postprocedural hypothyroidism
CPT/HCPCS: 36415; 84432; 84439; 84443; 86800

== ENCOUNTER 2024-11-23 10:51 | Outpatient (CLI) | payer BC, SELFPAY ==
--- NOTE | ~2024-11-23 | US_ITS ---
US soft tissue head and neck 11/23/2024 11:16 Indication: History of thyroid cancer status post total thyroidectomy. Procedure: High-resolution Limited ultrasound of the neck Comparison: CT dated 06/21/2013 Findings: Status post thyroidectomy. Normal heterogeneous soft tissues in the right neck without disc rete mass. There are lymph nodes identified in the left neck which demonstrate effacement of the fatt y hilum, largest representing 2.2 x 1.1 x 0.5 cm, suspicious for metastatic disease. Impression: 1: Left cervical lymphadenopathy with a typical appearance to the lymph nodes which demonstrate no ef facement of the fatty hilum. Findings suspicious for metastatic disease. Correlation with CT neck wit h contrast recommended. Alternatively PET/CT scan may be performed. Reviewed, dictated and finalized at location A. Impression: 1: Left cervical lymphadenopathy with a typical appearance to the lymph nodes w hich demonstrate no effacement of the fatty hilum. Findings suspicious for meta static disease. Correlation with CT neck with contrast recommended. Alternative ly PET/CT scan may be performed.
== END 2024-11-23 10:52 | disposition home or self-care (01) ==
LOC: MICIMG 10:51
PROVIDERS: PCP Physician Assistant; Visit Provider Internal Medicine
DX: R59.0 Localized enlarged lymph nodes (principal); E89.0 Postprocedural hypothyroidism; Z85.850 Personal history of malignant neoplasm of thyroid
CPT/HCPCS: 76536

== ENCOUNTER 2024-12-04 06:38 | Outpatient (CLI) | payer BC, SELFPAY ==
--- NOTE | ~2024-12-04 | CT_ITS ---
CT soft tissue neck chest w Ordering provider: Walker Mcfarland MD History: 44-year-old woman with a personal history of thyroid cancer (papillary thyroid cancer as described by the patient) presents following total thyroidectomy in 2004 for follow-up to an ultrasound performed 11/23/2024. Patient also received radioactive iodine treatment. Comparison: Reference is made to an ultrasound examination of the head and neck dated 11/23/2024 Technique: CT soft tissues neck and chest was performed with intravenous contrast. The dose-length pr oduct was 1288.34 mGy-cm. Findings: LOWER HEAD: The visualized brain parenchyma, optic globes/orbits and mastoids are unremarkable. The visualized paranasal sinuses are well aerated. SALIVARY GLANDS: Unremarkable. THYROID: Surgically absent. SUPRAHYOID DEEP SPACES: Maintained. CAROTID ARTERIES: Patent without significantly calcified atherosclerotic disease. JUGULAR VEINS: Patent. TONSILS: Unremarkable. ORAL CAVITY: Partially obscured by dental amalgam but normal as visualized. PHARYNX, LARYNX AND TRACHEA: No prevertebral soft tissue swelling. SUPERFICIAL SOFT TISSUES: Multiple lymph nodes are identified within the bilateral cervical chains. The largest on the left measures 8.7 mm in short axis dimension, level 2A (axial series, images 55 th rough 65), likely corresponding to the abnormality seen on recent ultrasound. The largest on the right measures 13 mm in short axis dimension, also level 2A (axial series, images 56 through 64). Additional nonpathologically enlarged but morphologically indeterminate lymph nodes are identified wi thin level 1B of the cervical chain. The largest on the right measures 10.6 mm in short axis dimension. The largest on the left measures 9.5 mm in short axis dimension. Multiple submental lymph nodes are identified (level 1A). The largest measuring 9 mm in short axis dimension, located to the left of midline. Additional level 5 lymph nodes are present. The largest is located on the left measuring 7.4 mm in short axis dimension (axial series, image 79). THORACIC INLET/VISUALIZED UPPER CHEST: The lungs are clear. No significant mediastinal lymphadenopathy is demonstrated. No morphologically suspicious or pathologically enlarged hilar lymph nodes are noted. WITHIN THE UPPER ABDOMEN: Scattered subcentimeter lymph nodes within the retroperitoneum and at the root of the mesentery, a no nspecific finding. SKELETAL: No significant degenerative disease within the cervical or thoracic spine. Bone island within the manubrium. IMPRESSION: Multiple borderline enlarged to minimally enlarged lymph nodes within the bilateral cervical chains ( the largest on the right measuring 13 mm in short axis dimension, level 2A). These lymph nodes are accessible for ultrasound-guided biopsy, however this patient may be better ser roseline with a follow-up PET/CT and an excisional biopsy of the affected lymph node, as the yield of ultr asound-guided percutaneous core biopsy of a lymph node is limited, and the definitive treatment, if a ffected, is excision. PET/CT is suggested, and by report in the EMR, is already requested. Reviewed, dictated and finalized at location A. IMPRESSION: Multiple borderline enlarged to minimally enlarged lymph nodes within the bilat eral cervical chains (the largest on the right measuring 13 mm in short axis di mension, level 2A). These lymph nodes are accessible for ultrasound-guided biopsy, however this pat ient may be better served with a follow-up PET/CT and an excisional biopsy of t he affected lymph node, as the yield of ultrasound-guided percutaneous core bio psy of a lymph node is limited, and the definitive treatment, if affected, is e xcision. PET/CT is suggested, and by report in the EMR, is already requested.
--- OUTSIDE RECORDS SUMMARY | 2024-12-04 06:45 | XMS_ITS | Data Portability ---
Author Organization [facility] Address [address] [place] [address] Care Team Providers Care Stereoplotter Operator Name Role Phone SUN ELDER Primary Care Provider [phone] Assessment Encounter Date Assessment Date Assessment LastModified by Organization Details LastModified Time 07/19/2023 07/19/2023 F/u in 4 mo for routine labs. [email or web address] Not available 07/19/2023 13:06:14 12/13/2023 12/13/2023 Sections of the HPI, exam and assessment completed by NATALY Cortez student and have been reviewed by me. I agree with the exam findings, assessment and plan except where specifically documented or amended. -Sun Elder, [facility], PAUmeshC [email or web address] Not available 12/13/2023 15:01:31 Plan of Treatment Reminders Order Date Submit Date Provider Last Modified By Organization Details Last Modified Time Details Appointments None recorded. Lab TSH + free T4, serum 2023 [place] [facility], [address] [facility], [address], [place], [address], 12:16:57 T3, free, serum or plasma 2023 024 [place] [facility], [address] [facility], [address], [place], [address], 4 12:16:58 cytology report, thin prep, smear or scraping, cervical or vaginal - brush and broom 2023 024 [facility], [address] [facility], [address], [place], [address], 4 11:10:32 lh + FSH, serum 2023 024 [facility], [address] [facility], [address], [place], [address], 4 08:34:38 estradiol , serum 2023 024 [facility], [address] [facility], [address], [place], [address], 4 08:34:36 progester one, serum 2023 024 [place] [facility], [address] [place] [address], [address], [place], [address], 4 08:34:36 CMP, serum or plasma [address] [facility], [address], [place], [address], 4 08:34:34 lipid panel, serum [address] [facility], [address], [place], [address], 4 08:34:34 CBC w/ auto diff 2023 024 [place] [facility], [address], [place], [address], 4 08:34:37 HbA1c (hemoglob in A1c), blood [address] [facility], [address], [place], [address], 4 08:34:35 TSH + free T4, serum 2023 024 [place] [facility], [address], [place], [address], 4 08:34:33 pathology study - SKIN TAGS TO BACK, SHOULDER, ABDOMEN, AND AXILLA 2022 023 [facility], Formerly named [facility], [address], [place], [address], 3 19:08:31 TSH + free T4, serum 2022 023 [facility], [address] [place] [address], [address], [place], [address], 3 08:22:10 T3, free, serum or plasma 2022 023 [facility], [address] [place] [address], [address], [place], [address], 3 08:22:10 Referral endocrino logy referral [address] - Endocrinology , [address], [place], [address], 4 08:01:23 obstetric judy and gynecolog ist referral 2023 024 ketan Márquez MD, 4 [facility] , [address], [place], [address], 4 12:07:10 endocrino logy referral - PREFERS TO STAY IN [place] 2022 023 milady Oakes MD, [address], [place], [address], 3 11:49:54 Procedures None recorded. Surgeries None recorded. Imaging barium swallow study 2023 024 [email or web address] [facility] (Radiology), [address] [facility] [place], [address], 4 08:02:55 MAMMO, screening , bilateral 2023 024 [email or web address] [facility] (Rad[facility]), [address] [facility] [place], [address], 4 11:35:05 Medication Orders fluticaso ne propionat e 50 mcg/actua tion nasal spray,felice pension 2023 024 [id number], [address], [place], [address], 4 10:05:29 levothyro xine 112 mcg tablet [email or web address] [facility], [address], [place], [address], 4 11:11:26 Ventolin HFA 90 mcg/actua tion aerosol inhaler 2023 024 [facility] [address], [place], [address], 4 08:35:57 hydrochlo rothiazid e 25 mg tablet 2023 024 [facility], [address], [place], [address], 4 10:07:06 azithromy christopher 250 mg tablet 2023 024 [email or web address] [facility], [address], [place], [address], 4 13:30:00 hydrochlo rothiazid e 25 mg tablet 2022 023 [facility], [address], [place], [address], 3 10:57:04 levothyro xine 112 mcg tablet 2022 023 [email or web address] [facility], [address], [place], [address], 4 11:11:26 Patient TargetsNo targets recorded. Patient Instructions Encounter Date Encounter Id Patient Instructions Last Modified By Organization Details Last Modified Time 07/19/2023 [id number] A healthy lifestyle: care instructions [email or web address] Not available 07/19/2023 10:48:03 12/13/2023 [id number] A healthy lifestyle: care instructions [email or web address] Not available 12/13/2023 10:03:07 01/03/2024 [id number] A healthy lifestyle: care instructions [email or web address] Not available 01/03/2024 14:53:36 Reason for Referral Endocrinology Referral for M alignant tumor of thyroid gland PREF[place] TO [place]AY IN [place] Referring Physician: [facility], Encounter Date: 07/19/2023 Endocrinology Referral for M alignant tumor of thyroid gland Referring Physician: [facility], Encounter Date: 12/13/2023 [facility] Referral for Screening for malignant neoplasm of cervix Referring Physician: Sun Elder [facility], Encounter Date: 12/13/2023 Results Created Date Observation Date Name Description Value Unit Range Abnormal Flag Note LastModifiedBy Organization Detail LastModifiedTime 07/19/2007/20/2023 TSH+F REE T4 TSH 0.119 uIU/m L 0.450- 4.500 below low normal Not Available [facility] ([facility]) [address], [place], [address], 07/20/2023 08:22:10 07/19/20 23 07/20/2023 TSH+F REE T4 T4,free(dire ct) 2.10 NG/dL 0.82-1 .77 above high normal Not Available [facility] ([facility]) [address] [facility], [place], [address], 07/20/2023 08:22:10 07/19/20 23 07/20/2023 TRIIO DOTHY TERRI E (T3), FREE triiodothyro nine (T3), free 3.1 pg/mL 2.0-4. 4 Not Available [facility] ([facility]) [address] [facility], [place], [address], 07/20/2023 08:22:10 08/09/20 23 08/24/2023 PATHO LOGY REPOR T . Commbruce t Mater ial submi tted: . body - SKIN TAGS, BACK, SHOUL GUSTABO, ABDOM EN, AXILL A RECEI ISABEL IN ONE CONTA INER Not Available [facility] ([facility]) [address] [facility], [place], [address], 08/24/2023 19:08:31 08/09/20 23 08/24/2023 PATHO LOGY REPOR T . Arash t Clini nicole provi ded ICD-1 0: L91.8 Not Available [facility] (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 TMZ 08/24 0923 Local Not Available [facility] ([facility]) [address] [facility], [place], [address], 08/24/2023 19:08:31 08/09/20 23 08/24/2023 PATHO LOGY REPOR T . Commen t Maci nye d: . Felipe marquez MD, [place] topat holog ist Not Available [facility] ([facility]) [address] [facility], [place], [address], 08/24/2023 19:08:31 08/09/2008/24/2023 PATHO LOGY REPOR T [...] 08/22 0434 Local Not Available [facility] ([facility]) [address] [facility], [place], [address], 08/24/2023 19:08:31 08/09/20 23 08/24/2023 PATHO LOGY REPOR T . Commen t Patho logis t provi ded ICD-1 0: L91.9 , D22.5 Not Available [facility] ([facility]) [address] [facility], [place], [address], 08/24/2023 19:08:31 08/09/20 23 08/24/2023 PATHO HECTOR York Doylebruce t CPT . 65536 1 Not Available [facility] ([facility]) [address] [facility], [place], [address], 08/24/2023 19:08:31 12/13/19 24 12/14/2023 TSH+F REE T4 TSH 0.107 uIU/m L 0.450- 4.500 below low normal Not Available [facility] ([facility]) [address] [facility], [place], [address], 12/14/2023 08:34:33 12/13/19 24 12/14/2023 TSH+F REE T4 T4,free(dire ct) 2.06 NG/dL 0.82-1 .77 above high normal Not Available [facility] ([facility]) [address] [facility], [place], [address], 12/14/2023 08:34:33 12/13/19 24 12/14/2023 LIPID PANEL WITH LDL/H DL RATIO cholesterol, total 180 mg/dL 100-19 9 Not Available [facility] ([facility]) [address] [place], [address], 12/14/2023 08:34:34 12/13/19 24 12/14/2023 LIPID PANEL WITH LDL/H DL RATIO triglyceride s 107 mg/dL 0-149 Not Available [facility] ([facility]) [address] [place], [address], 12/14/2023 08:34:34 12/13/19 24 12/14/2023 LIPID PANEL WITH LDL/H DL RATIO HDL cholesterol 44 mg/dL >39 Not Available [facility] ([facility]) [address] [place], [address], 12/14/2023 08:34:34 12/13/19 24 12/14/2023 LIPID PANEL WITH LDL/H DL RATIO VLDL cholesterol antonia 19 mg/dL 5-40 Not Available [facility] ([facility]) [address] [place], [address], 12/14/2023 08:34:34 12/13/19 24 12/14/2023 LIPID PANEL WITH LDL/H DL RATIO LDL chol calc ([facility]) 117 mg/dL 0-99 above high normal Not Available [facility] ([facility]) [address] [facility], [place], [address], 12/14/2023 08:34:34 12/13/19 24 12/14/2023 LIPID PANEL WITH LDL/H DL RATIO LDL/HDL ratio 2.7 ratio 0.0-3. 2 LDL/H DL Ratio Men Women 1/2 Avg.R isk 1.0 1.5 Avg.R isk 3.6 3.2 2X Avg.R isk 6.2 5.0 3X Avg.R isk 8.0 6.1 Not Available [facility] ([facility]) [address] [place], [address], 12/14/2023 08:34:34 12/13/19 24 12/14/2023 COMP. METAB OLIC PANEL (14) glucose 91 mg/dL 70-99 Not Available [facility] ([facility]) [address] [place], [address], 12/14/2023 08:34:34 12/13/19 24 12/14/2023 COMP. METAB OLIC PANEL (14) BUN 13 mg/dL 6-24 Not Available [facility] ([facility]) [address] [place], [address], 12/14/2023 08:34:34 12/13/19 24 12/14/2023 COMP. METAB OLIC PANEL (14) creatinine 0.84 mg/dL 0.57-1 .00 Not Available [facility] ([facility]) [address] [place], [address], 12/14/2023 08:34:34 12/13/19 24 12/14/2023 COMP. METAB OLIC PANEL (14) eGFR 88 mL/mi n/1.7 3 >59 Not Available [facility] ([facility]) [address] [facility], [place], [address], 12/14/2023 08:34:34 12/13/19 24 12/14/2023 COMP. METAB OLIC PANEL (14) BUN/creatini ne ratio 15 9-23 Not Available [facility] ([facility]) [address] [facility], [place], [address], 12/14/2023 08:34:34 12/13/19 24 12/14/2023 COMP. METAB OLIC PANEL (14) sodium 140 mmol/ L 134-14 4 Not Available [facility] ([facility]) [address] [facility], [place], [address], 12/14/2023 08:34:34 12/13/19 24 12/14/2023 COMP. METAB OLIC PANEL (14) potassium 3.7 mmol/ L 3.5-5. 2 Not Available [facility] ([facility]) [address] [facility], [place], [address], 12/14/2023 08:34:34 12/13/19 24 12/14/2023 COMP. METAB OLIC PANEL (14) chloride 99 mmol/ L 96-106 Not Available [facility] ([facility]) [address] [facility], [place], [address], 12/14/2023 08:34:34 12/13/19 24 12/14/2023 COMP. METAB OLIC PANEL (14) carbon dioxide, total 25 mmol/ L 20-29 Not Available [facility] ([facility]) [address] [facility], [place], [address], 12/14/2023 08:34:34 12/13/19 24 12/14/2023 COMP. METAB OLIC PANEL (14) calcium 9.6 mg/dL 8.7-10 .2 Not Available [facility] ([facility]) [address], [place], [address], 12/14/2023 08:34:34 12/13/19 24 12/14/2023 COMP. METAB OLIC PANEL (14) protein, total 7.6 g/dL 6.0-8. 5 Not Available [facility] ([facility]) [address], [place], [address], 12/14/2023 08:34:34 12/13/19 24 12/14/2023 COMP. METAB OLIC PANEL (14) albumin 4.2 g/dL 3.9-4. 9 Not Available [facility] ([facility]) [address], [place], [address], 12/14/2023 08:34:34 12/13/19 24 12/14/2023 COMP. METAB OLIC PANEL (14) globulin, total 3.4 g/dL 1.5-4. 5 Not Available [facility] ([facility]) [address] [place], [address], 12/14/2023 08:34:34 12/13/19 24 12/14/2023 COMP. METAB OLIC PANEL (14) A/G ratio 1.2 1.2-2. 2 Not Available [facility] ([facility]) [address] [place], [address], 12/14/2023 08:34:34 12/13/19 24 12/14/2023 COMP. METAB OLIC PANEL (14) bilirubin, total 0.4 mg/dL 0.0-1. 2 Not Available [facility] ([facility]) [address], [place], [address], 12/14/2023 08:34:34 12/13/19 24 12/14/2023 COMP. METAB OLIC PANEL (14) alkaline phosphatase 95 IU/L 44-121 Not Available [facility] ([facility]) [address] [place], [address], 12/14/2023 08:34:34 12/13/19 24 12/14/2023 COMP. METAB OLIC PANEL (14) AST (SGOT) 14 IU/L 0-40 Not Available [facility] ([facility]) [address] [place], [address], 12/14/2023 08:34:34 12/13/19 24 12/14/2023 COMP. METAB OLIC PANEL (14) ALT (SGPT) 12 IU/L 0-32 Not Available [facility] ([facility]) [address] [place], [address], 12/14/2023 08:34:34 12/13/19 24 12/14/2023 HEMOG LOBIN A1C hemoglobin A1C 5.2 % 4.8-5. 6 Predi abete s: 5.7 - 6.4 Diabe candi: >6.4 Glyce aidan contr ol for adult s with diabe candi: <7.0 Not Available [facility] ([facility]) [address] [place], [address], 12/14/2023 08:34:35 12/13/19 24 12/14/2023 PROGE STERO NE progesterone 2.9 NG/mL Folli cular phase 0.1 - 0.9 Lutea l phase 1.8 - 23.9 Ovula tion phase 0.1 - 12.0 Pregn ant First trime ster 11.0 - 44.3 Secon d trime ster 25.4 - 83.3 Third trime ster 58.7 - 214.0 Postm enopa usal 0.0 - 0.1 Not Available [facility] ([facility]) [address] [place], [address], 12/14/2023 08:34:36 12/13/19 24 12/14/2023 ESTRA DIOL estradiol 101.0 pg/mL Adult Femal e Range Folli cular phase 12.5 - 166.0 Ovula tion phase 85.8 - 498.0 Lutea l phase 43.8 - 211.0 Postm enopa usal <6.0 - 54.7 Pregn yuly 1st trime ster 215.0 - >4300 .0 Vaishali ECLIA metho dolog y Not Available [facility] ([facility]) [address] [facility], [place], [address], 12/14/2023 08:34:36 12/13/19 24 12/14/2023 CBC WITH DIFFE RENTI AL/PL ATELE T WBC 7.6 x10e3 /uL 3.4-10 .8 Not Available [facility] ([facility]) [address] [place], [address], 12/14/2023 08:34:37 12/13/19 24 12/14/2023 CBC WITH DIFFE RENTI AL/PL ATELE T RBC 4.72 x10e6 /uL 3.77-5 .28 Not Available [facility] ([facility]) [address] [place], [address], 12/14/2023 08:34:37 12/13/19 24 12/14/2023 CBC WITH DIFFE RENTI AL/PL ATELE T hemoglobin 13.8 g/dL 11.1-1 5.9 Not Available [facility] ([facility]) [address] [place], [address], 12/14/2023 08:34:37 12/13/19 24 12/14/2023 CBC WITH DIFFE RENTI AL/PL ATELE T hematocrit 40.2 % 34.0-4 6.6 Not Available [facility] ([facility]) [address] [place], [address], 12/14/2023 08:34:37 12/13/19 24 12/14/2023 CBC WITH DIFFE RENTI AL/PL ATELE T MCV 85 fL 79-97 Not Available [facility] ([facility]) [address] [facility], [place], [address], 12/14/2023 08:34:37 12/13/19 24 12/14/2023 CBC WITH DIFFE RENTI AL/PL ATELE T MCH 29.2 pg 26.6-3 3.0 Not Available [facility] ([facility]) [address] [facility], [place], [address], 12/14/2023 08:34:37 12/13/19 24 12/14/2023 CBC WITH DIFFE RENTI AL/PL ATELE T MCHC 34.3 g/dL 31.5-3 5.7 Not Available [facility] ([facility]) [address] [facility], [place], [address], 12/14/2023 08:34:37 12/13/19 24 12/14/2023 CBC WITH DIFFE RENTI AL/PL ATELE T RDW 13.0 % 11.7-1 5.4 Not Available [facility] ([facility]) [address] [facility], [place], [address], 12/14/2023 08:34:37 12/13/19 24 12/14/2023 CBC WITH DIFFE RENTI AL/PL ATELE T platelets 441 x10e3 /uL 150-45 0 Not Available [facility] ([facility]) [address] [facility], [place], [address], 12/14/2023 08:34:37 12/13/19 24 12/14/2023 CBC WITH DIFFE RENTI AL/PL ATELE T neutrophils 65 % notest ab. Not Available [facility] ([facility]) [address] [facility], [place], [address], 12/14/2023 08:34:37 12/13/19 24 12/14/2023 CBC WITH DIFFE RENTI AL/PL ATELE T lymphs 22 % notest ab. Not Available [facility] ([facility]) [address] [facility], [place], [address], 12/14/2023 08:34:37 12/13/19 24 12/14/2023 CBC WITH DIFFE RENTI AL/PL ATELE T monocytes 6 % notest ab. Not Available [facility] ([facility]) [address] [facility], [place], [address], 12/14/2023 08:34:37 12/13/19 24 12/14/2023 CBC WITH DIFFE RENTI AL/PL ATELE T eos 6 % notest ab. Not Available [facility] ([facility]) [address] [facility], [place], [address], 12/14/2023 08:34:37 12/13/19 24 12/14/2023 CBC WITH DIFFE RENTI AL/PL ATELE T basos 1 % notest ab. Not Available [facility] ([facility]) [address] [facility], [place], [address], 12/14/2023 08:34:37 12/13/19 24 12/14/2023 CBC WITH DIFFE RENTI AL/PL ATELE T neutrophils (absolute) 4.9 x10e3 /uL 1.4-7. 0 Not Available [facility] ([facility]) [address] [facility], [place], [address], 12/14/2023 08:34:37 12/13/19 24 12/14/2023 CBC WITH DIFFE RENTI AL/PL ATELE T lymphs (absolute) 1.7 x10e3 /uL 0.7-3. 1 Not Available [facility] ([facility]) [address] [facility], [place], [address], 12/14/2023 08:34:37 12/13/19 24 12/14/2023 CBC WITH DIFFE RENTI AL/PL ATELE T monocytes(ab solute) 0.5 x10e3 /uL 0.1-0. 9 Not Available [facility] ([facility]) [address] [place], [address], 12/14/2023 08:34:37 12/13/19 24 12/14/2023 CBC WITH DIFFE RENTI AL/PL ATELE T eos (absolute) 0.4 x10e3 /uL 0.0-0. 4 Not Available [facility] ([facility]) [address] [facility], [place], [address], 12/14/2023 08:34:37 12/13/19 24 12/14/2023 CBC WITH DIFFE RENTI AL/PL ATELE T baso (absolute) 0.1 x10e3 /uL 0.0-0. 2 Not Available [facility] ([facility]) [address] [place], [address], 12/14/2023 08:34:37 12/13/19 24 12/14/2023 CBC WITH DIFFE RENTI AL/PL ATELE T immature granulocytes 0 % notest ab. Not Available [facility] ([facility]) [address] [place], [address], 12/14/2023 08:34:37 12/13/19 24 12/14/2023 CBC WITH DIFFE RENTI AL/PL ATELE T immature grans (abs) 0.0 x10e3 /uL 0.0-0. 1 Not Available [facility] ([facility]) [address] [place], [address], 12/14/2023 08:34:37 12/13/19 24 12/14/2023 FSH AND LH LH 10.8 mIU/m L Adult Femal e Range Folli cular phase 2.4 - 12.6 Ovula tion phase 14.0 - 95.6 Lutea l phase 1.0 - 11.4 Postm enopa usal 7.7 - 58.5 Not Available [facility] ([facility]) [address] [place], [address], 12/14/2023 08:34:38 12/13/19 24 12/14/2023 FSH AND LH FSH 10.8 mIU/m L Adult Femal e Range Folli cular phase 3.5 - 12.5 Ovula tion phase 4.7 - 21.5 Lutea l phase 1.7 - 7.7 Postm enopa usal 25.8 - 134.8 Not Available [facility] ([facility]) [address] [place], [address], 12/14/2023 08:34:38 01/03/20 24 01/05/2024 IGP, APTIM A HPV, RFX 16/18 ,45 HPV aptima Negati ve negati ve This nucle ic acid ampli ficat ion test detec ts fourt een high- risk HPV types (16,1 8,31, 33,35 ,39,4 5,51, 52,56 ,58,5 9,66, 68) witho ut diffe renti ation . Not Available [facility] ([facility]) [address] [facility], [place], [address], 01/08/2024 11:10:32 01/03/20 24 01/08/2024 IGP, APTIM A HPV, RFX 16/18 ,45 diagnosis: Commen t NEGAT ERLINDA FOR INTRA EPITH ELIAL LESIO N OR MALIG YULIA . THIS SPECI MEN WAS RESCR EENED PART OF OUR QUALI TY CONTR OL PROGR AM. Not Available [facility] ([facility]) [address] [facility], [place], [address], 01/08/2024 11:10:32 01/03/20 24 01/08/2024 IGP, APTIM A HPV, RFX 16/18 ,45 specimen adequacy: Commen t Satis facto ry for evalu ation . Endoc ervic al and/o r squam ous metap lasti c cells (endo cervi antonia compo nent) are prese nt. Not Available [facility] ([facility]) [address] [place], [address], 01/08/2024 11:10:32 01/03/20 24 01/08/2024 IGP, APTIM A HPV, RFX 16/18 ,45 clinician provided ICD10: Arash martinez Z01.4 19 Not Available [facility] ([facility]) [address] [place], [address], 01/08/2024 11:10:32 01/03/20 24 01/08/2024 IGP, APTIM A HPV, RFX 16/18 ,45 performed by: Arash resendiz, Cytot echno logis t (ASCP ) Not Available [facility] ([facility]) [address] [place], [address], 01/08/2024 11:10:32 01/03/20 24 01/08/2024 IGP, APTIM A HPV, RFX 16/18 ,45 QC reviewed by: Arash schultz, Cytot echno logis t (ASCP ) Not Available [facility] ([facility]) [address] [place], [address], 01/08/2024 11:10:32 01/03/20 24 01/08/2024 IGP, APTIM A HPV, RFX 16/18 ,45 . . Not Available [facility] ([facility]) [address] [place], [address], 01/08/2024 11:10:32 01/03/20 24 01/08/2024 IGP, APTIM [...] do occur . Not Available [facility] ([facility]) [address] [place], [address], 01/08/2024 11:10:32 01/03/20 24 01/08/2024 IGP, APTIM A HPV, RFX 16/18 ,45 test methodology: Commen t This liqui d based ThinP rep(R ) pap test was darline palumbo with the use of an image guide zoran rose Not Available [facility] ([facility]) [address] [place], [address], 01/08/2024 11:10:32 01/03/20 24 01/08/2024 IGP, APTIM A HPV, RFX 16/18 ,45 HPV genotype reflex Commen t Crite tomeka not met, HPV Genot ype not perfo rmed. Not Available [facility] ([facility]) [address] [place], [address], 01/08/2024 11:10:32 05/29/20 24 05/30/2024 TSH+F REE T4 TSH 0.222 uIU/m L 0.450- 4.500 below low normal Not Available [facility] ([facility]) [address] [place], [address], 05/30/2024 12:16:57 05/29/20 24 05/30/2024 TSH+F REE T4 T4,free(dire ct) 2.04 NG/dL 0.82-1 .77 above high normal Not Available [facility] ([facility]) [address] [place], [address], 05/30/2024 12:16:57 05/29/20 24 05/30/2024 TRIIO DOTHY TERRI E (T3), FREE triiodothyro nine (T3), free 2.8 pg/mL 2.0-4. 4 Not Available [facility] ([facility]) [address] [place], [address], 05/30/2024 12:16:58 02/02/20 24 01/31/2024 US, thyro id No observ ation record ed. [facility] , [place], [address], 02/05/2024 14:51:52 11/26/19 25 11/23/2024 US, thyro id No observ ation record ed. [facility] [address], [place], [address], 11/26/2024 10:53:29 Result Notes None recorded. Problems Name Problem SNOMED Code Status Onset Date Resolution Date Notes Provider Name and Address Organization Details Recorded Time Asthma 362950649 Active 2020 NATALY SCHMIDT Attn: Mike leal,[address] [facility], [place], [address], [place] - [place] 2 10:20:06 Hypothyroidism 06786259 Active 2020 NATALY SCHMIDT Attn: Mike leal,[address] [facility], [place], [address], [place] [facility] 2 10:20:04 Malignant tumor of thyroid gland 805400384 Active 2020 2014 at [facility]. NATALY SCHMIDT Attn: Mike g,[address] [facility], [place], [address], [place] [facility] 2 10:20:02 Essential hypertension 40124346 Active 2021 NATALY SCHMIDT Attn: Accountjocelin g,[address] [facility], [place], [address], [place] [facility] 2 10:40:36 Problem Notes None recorded. Procedures Surgical History Date Name Laterality Status Provider Name and Address Organization Details Recorded Time 01/03/20 24 Date of Last Pap Smear completed Kaci Andersen RN [place] - [place] 01/09/2024 16:51:28 08/28/19 04 loop electrosurgical excision procedure completed ALEXANDER Lopez Attn: Accounting, [address] [place], [address], [facility] - [facility] 01/03/2024 14:52:28 Tubal Ligation completed Shayna Duran [facility] - [facility] 01/03/2024 13:31:02 Endometrial Ablation completed Shayna Renee [facility] - [facility] 01/03/2024 13:31:11 Imaging Results Imaging Date Name Status LastModified by Organiz ation Details LastModified Time 01/31/2024 US, thyroid completed [address] , [place], [address], 02/05/2024 14:51:52 11/23/2024 US, thyroid completed [facility] [address] [address], [place], [address], 11/26/2024 10:53:29 Procedure Notes None recorded. Medical Equipment None Reported. Allergies Allergen ID Allergen Name Allergen Category Reaction Reaction Severity Criticality Documentation Date Start Date Code Code System Note Provider Name and Address Organization Details Recorded Time 584543 amoxicill in medicatio n rash Not available Not available 10/02/2020 723 RxNorm Not Available Not Available Not Available 034315 Bactrim medicatio n hives severe Not available 09/14/2021 53321 9 RxNorm Not Available Not Available Not [...] MEALS FOR 30 DAYS FOR HYPOTHYRO IDISM active Not Available Not Available No t Available hydrochloro thiazide 25 mg tablet TAKE 1 [...] Updated DateTime 3 173.99 cm 37.9 kg/m2 524380. 57 g 100 % 100 % 98 /min 16 /min 122 mm[Hg] 80 mm[Hg] Samantha Miller MA [facility] SI 3 10:38:57 Date Recorded Body height Body mass index (BMI) Body weight Oxygen saturation Oxygen saturation in Arterial blood by Pulse oximetry Heart rate Systolic blood pressure Diastolic blood pressure Provider Name and Address Organization Details Last Updated DateTime 3 173.99 cm 37.9 kg/m2 748390. 87 g 96 % 96 % 83 /min 125 mm[Hg] 85 mm[Hg] Brandee Brizuela MA [facility] 3 09:48:26 Date Recorded Respiratory rate Provider Name a ga Address Organization Details Last Updated DateTime 08/09/2023 18 /min NATALY SCHMIDT Attn: Accounting,[address] [place], [address], [facility] 08/09/2023 16:58:48 Date Recorded Body height Body mass index (BMI) Body weight Oxygen saturation Oxygen saturation in Arterial blood by Pulse oximetry Heart rate Systolic blood pressure Diastolic blood pressure Provider Name and Address Organization Details Last Updated DateTime 4 173.99 cm 38.3 kg/m2 534419. 85 g 99 % 99 % 106 /min 135 mm[Hg] 85 mm[Hg] Brandee Brizuela MA [facility] 4 09:04:26 Date Recorded Respiratory rate Body temperature Heart rate Provider Name and Address Organization Details Last Updated DateTime 12/13/2023 18 /min 98.7 [degF] 90 /min NATALY SCHMIDT Attn: Accounting, [address] [place], [address], [facility] 12/14/2023 08:37:43 Date Recorded Body height Body mass index (BMI) Body weight Systolic blood pressure Diastolic blood pressure Provider Name and Address Organization Details Last Updated DateTime 01/03/2024 173.99 cm 38.4 kg/m2 895013.0 8 g 130 mm[Hg] 84 mm[Hg] MYLES Ramirez [facility] 13:48:08 Date Recorded Body height Body mass index (BMI) Body weight Oxygen saturation Oxygen saturation in Arterial blood by Pulse oximetry Heart rate Systolic blood pressure Diastolic blood pressure Provider Name and Address Organization Details Last Updated DateTime 173.99 cm 39.6 kg/m2 985590. 49 g 99 % 99 % 92 /min 129 mm[Hg] 85 mm[Hg] Brandee Brizuela MA [facility] SI 4 09:14:13 Date Recorded Respiratory rate Provider Name a ga Address Organization Details Last Updated DateTime 05/29/2024 18 /min NATALY SCHMIDT Attn: ,[address] [place], [address], [facility] 05/29/2024 09:29:15 Social History Question Answer Notes LastModified by Organizat ion Details LastModified Time Tobacco Smoking Status Never Smoker Brandee Brizuela MA null, [facility] 10/02/2020 10:34:10 Do You Have An Advance [...] Anxious, Or Unable To Sleep At Night)? [id number] Information not available 09/14/2021 Do You Use [...] Problems Y Kidney or Bladder Problems N GI Problems N Depression N COPD N Blood Clots N Skin Problems N Anemia N Heart Attack ([place]) N Diabetes N Anxiety Disorder Y Muscle, Joint, or Bone Problems N Seizures/Epilepsy N Acid Reflux (GERD) N Cancer N Stroke N Asthma N Allergies N ADHD N High Cholesterol N Hepatitis N Liver Disease N Headaches N Osteoporosis N Heart Failure N Gynecological History Statement/Question Response Abnormal Pap [...] dose or 50 mcg/0.25mL dose 1 completed Brandee NascimentoarzaTAMRA, [place] - [facility] 05/29/2024 09:02:26 COVID-19, mRNA, LNP-S, PF, 100 mcg/0.5mL dose or 50 mcg/0.25mL dose 1 completed Brandee Brizuela [place] - [facility] 05/29/2024 09:02:27 Influenza, split virus, quadrivalent, preservative 8 completed Brandee Nascimentorenea [place] - [facility] 05/29/2024 09:02:46 Influenza, split virus, trivalent, PF 4 completed NATALY SCHMIDT Attn: Accounting,[address] [place], [address], [facility] - [facility] 05/29/2024 10:40:21 Past Encounters Encounter ID Performer Location Encounter Start Date Encounter Closed Date Diagnosis/Indication Diagnosis SNOMED-CT Code Diagnosis ICD10 Code Diagnosis Note [id number] NATALY RODRIGUEZ [facility] [address] [place] [address] 10/02/2020 08:05:35 10/02/2020 11:53:32 Depressive disorder 69046407 F32.9 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 She is happy [...] emerge). Additional ly, patient has suicide hotline #. 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 She has thryoid surgery and has been following with [facility] endocrinol ogy. [facility]. Last US was two years ago and was normal. Has not has TSH checked in a long time. She needs new endocrinol ogy in the area as she has trouble getting to [facility]. - records- endo- TSH Asthma 739581825 J45.90 9 Patient diagnosed with asthma as child. Has not had to use inhaler in a while. She does have inhaler on hand but it is a few years old. Dysphagia 44457603 R13.1 0 Patient started having choking episodes [...] cancer. denies reflux or heart burn. Overweight 429716016 E66 .3 per patient she is overweight . Trouble losing it. [id number] NATALY SCHMIDT [facility] [address] [place] [address] 09/14/2021 10:49:16 09/16/2021 07:26:32 Laryngitis 39135717 J04.0 x3 daysvoice restincrea se fluid intakehumi difier at bedsidehot tea with lemon/josefa ysalt water garglesOTC cough suppressan tf/u with any new or worsening sx Viral syndrome 392797749 B34.9 PCR COVID Depression screening 171 170670 Z13.31 PHQ 10 [id number] NATALY SCHMIDT [facility] [address] [place] [address] 01/12/2022 16:11:34 01/13/2022 11:05:26 Malignant tumor of thyroid gland 728802223 C73 20 lb weight gain x3 monthsno change in diet or activityat tributes to thyroid, will re-check todaytakes 2 tabs of levo 112 mcg and 1 tab on monday Depression screening 171 658835 Z13.31 PHQ 1 Otalgia of left ear 1010 873120 H92.02 x3 wksunknown causefeels like popping and pressure, a/w headachesP Ex- mild dried cerumen adhered to L TM, no tragal/pin na tenderness reassured pttrial debrox ear dropsf/u if symptoms do not improve Elevated blood-pressure reading without diagnosis of hypertension 232755118 R03.0 BP 140/86, 158/100att ributes headaches to ear pressureno other sxf/u in 1 wk for BP check [id number] Brandee Brizuela MA [facility] [address] [place] [address] 01/20/2022 10:11:06 01/21/2022 08:51:18 [id number] NATALY SCHMIDT [facility] [address] [place] [address] 02/02/2022 15:19:49 02/03/2022 14:29:43 Essential hypertension 13141576 I10 02/02/22: BP 132/88c/w HCTZ 25 today 158/1025/1 04/18: BP 140/86, 158/100sta rt HCTZ 25f/u in 1 wk for BP check [id number] NATALY SCHMIDT [facility] [address] [place] [address] 10/18/2022 10:46:41 10/18/2022 11:24:16 Depression screening 020324380 Z13.31 PHQ 0 Screening for malignant neoplasm of cervix 764368263 Z12.[address] Lopes 04/2022, normaltuba l ablation 05/2022, no periods since procedure Screening for malignant neoplasm of breast 924996209 Z12.39 last mammogram 8 yrs agoout of insurance in 1 wk- unable to completef/ u once receive insurance and will order Morbid obesity 973666442 E66.01 due for routine labs Hypothyroidism 83230341 E03.9 re-check today Malignant tumor of thyroid gland 873430652 C73 10/18/22:wa s following with [facility] in 2019will re-refer to endocrine for f/u [...] thryoid surgery and has been following with [facility] endocrinol yoni. She has had trouble getting into appointmen ts due to COVID. Last US was two years ago and was normal. Has not has TSH checked in a long time. Essential hypertension 47144128 I10 10/18/22:BP 124/82c/w HCTZ 25 02/02/22: BP 132/88c/w HCTZ 25 today 158/1025/1 04/18: BP 140/86, 158/100sta rt HCTZ 25f/u in 1 wk for BP check Asthma 519787831 J45.90 9 uses PRN with season changes [id number] NATALY SCHMIDT [facility] [address] [place] [address] 07/19/2023 10:33:17 07/19/2023 11:30:46 Essential hypertension 44619667 I10 07/19/23:B P 122/80c/w HCTZ 25 10/18/22:BP 124/82c/w HCTZ 25 02/02/22: BP 132/88c/w HCTZ 25 today 158/1025/1 04/18: BP 140/86, 158/100sta rt HCTZ 25f/u in 1 wk for BP check Hypothyroidism 18867859 E03.9 07/19/23:t akes 112 mcg BID everyday [...] thyroid STAT Malignant tumor of thyroid gland 806393208 C73 07/19/23:r efer to endocrine, [place] to stay [place] 10/18/22:wa s following with [facility] in 2019will re-refer to endocrine for f/u once establishe s insurance again 01/12/22:20 lb weight gain x3 monthsno change in diet or activityat tributes to thyroid, will re-check todaytakes 2 tabs of levo 112 mcg and 1 tab on monday per M. 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 She has thryoid surgery and has been following with [facility] endocrinol [facility]. She has had trouble getting into appointmen ts due to COVID. Last US was two years ago and was normal. Has not has TSH checked in a long time. Depression screening 171 515390 Z13.31 PHQ 0 Screening for malignant neoplasm of cervix 844399430 Z12.[address] Lopes 04/2022, normaltuba l ablation 05/2022, no periods since procedure Screening for malignant neoplasm of breast 056203180 Z12.39 07/19/23:w ants to wait until after her weddingwil l order at f/u appt 10/202309/28/22:las t mammogram 8 yrs agoout of insurance in 1 wk- unable to completef/ u once receive insurance and will order Obesity 796984386 E66.9 lost 20 lbs since 09/2022 Chronic cough 99070408 R 05.3 x1 yroccurs in the morningcou ghs up clear sputumslee ps with mouth open and snoresdeni es GERD sxh/o mild asthmaPEx- nltrial humidifier in bedroomtri al antihistam ine Snoring 13347130 R06.83 will discuss sleep study at f/u visit [id number] NATALY SCHMIDT [facility] [address] [place] [address] 08/09/2023 09:37:00 08/09/2023 10:44:22 Multiple skin tags 328996617 L91.8 skin tag removalPEx - skin tag to R sided bra line, R shoulder, abdomen, and L axillatole rated procedure [facility] [id number] NATALY SCHMIDT [facility] [address] [place] [address] 12/13/2023 08:50:01 12/13/2023 10:03:39 Malignant tumor of thyroid gland 866179474 C73 12/13/23: requesting endocrine referral, refill levo 07/19/23:r efer to endocrine, [place] to stay [place] 10/18/22:wa s following with U in 2019will re-refer to endocrine for f/u [...] thryoid surgery and has been following with [facility] endocrinol ogy. She has had trouble getting into appointmen ts due to COVID. Last US was two years ago and was normal. Has not has TSH checked in a long time. Hypothyroidism 09148529 E03.9 12/13/23: continue 112 mcg BID, requesting [...] endocrine and ordered US thyroid STAT Obesity 313887796 E66.9 BMI 38.3discus sed increasing exercise and healthier food options, high protein, low fat diet Screening for malignant neoplasm of breast 432106703 Z12.39 12/13/23: due for mammo 07/19/23:w ants to wait until after her weddingwil l order at f/u appt 10/202309/28/22:suma t mammogram 8 yrs agoout of insurance in 1 wk- unable to completef/ u once receive insurance and will order Screening for malignant neoplasm of cervix 252286591 Z12.4 12/13/23: requesting new LEAD DRIVER referral completed by Dr. Lopes 04/2022, normaltuba l ablation 05/2022, no periods since procedure Non-menopa usal hot flash 1300315531 93290 R23.2 wants to know if she is going through menopausen ight sweats x1 morequesti ng to check hormones Productive cough -green sputum 329153268 R09.3 x6 daysno relief with OTC medswill treat with abx Nasal congestion 2219560 0 R09.81 no relief with nasal decongesta nt pillstrial flonase nasal spray rx Essential hypertension 45649531 I10 12/13/23BP 135/85c/w HCTZ 25, refill 07/19/23:B P 122/80c/w HCTZ 25 10/18/22:BP 124/82c/w HCTZ 25 02/02/22: BP 132/88c/w HCTZ 25 today 158/1025/1 04/18: BP 140/86, 158/100sta rt HCTZ 25f/u in 1 wk for BP check Asthma 274373220 J45.90 9 uses PRN with season changes Depression screening 171 011450 Z13.31 PHQ 0 [id number] Chayito Armendariz, JOYA-C Livia 14 OB [address] [facility] [address] [place] [address] 01/03/2024 13:07:50 01/04/2024 16:09:25 Screening mammography 88072771 Z12.31 Patient educated on the importance of annual breast cancer screenings with mammograph y. Patient's pcp already ordered screening mammogram. pt advised to complete mammogram. Routine gy necologic examination done 6345870572 9101 Z01.419 -Educated on the importance of [...] sunscreen. Body mass index 30+ - obesity 881896221 Z68.38 Pt educated on risks and importance of lifestyle modificati ons. Pt reports will continue to follow up with PCP. [id number] NATALY SCHMIDT [facility] [address] [place] [address] 05/29/2024 08:44:10 05/29/2024 09:41:41 Depression screening 035747004 Z13.31 PHQ 0 Dysphagia 81646173 R13.1 0 x2 monthsstre ss inducedocc urs with meats, chicken, bread, tries to swallow and then vomitsno odynophagi aPEx- nlordered barium swallow study Hypothyroidism 57847504 E03.9 05/29/24: US thyroid 01/31/24- thyroidect latha [...] thyroid STAT Administra tion of influenza vaccine 42558576 Z23 Health Concerns Section Related Observation LastModified by Organization Detai ls LastModified Time None Recorded Concern Status LastModified by Organization Details LastModified Time None Recorded Advance Directives Directive N: Payers Encounter Date Sequence Insurance Name Policy Number Policy Ozuna Covered Member ID Ozuna Member ID Guarantor Name 07/19/2023 1 [facility] (MEDICAID HMO) [id number] Kacie Sheffield [id number] Sara Armstrong 07/19/2023 1 [place] [id number] Sara Baron [facility] [id number] 2 Sara [facility] 08/09/2023 1 [facility] (MEDICAID HMO) [id number] Kacie Sheffield [id number] Sara [facility] 08/09/2023 1 [place] [id number] Sara [place] [id number] [facility] 12/13/2023 1 [place] [id number] Sara Baron [facility] [id number] 2 Sara [facility] 01/03/2024 1 [place] [id number] Sara Baron [facility] [id number] 2 Sara [facility] 05/29/2024 1 [place] [id number] Sara Baron [facility] [id number] 2 Sara [facility] Notes Date Note Type Note Provider Name [...] Denies SOB. NATALY SCHMIDT Attn: Accounting,[address] [facility], [place], [address], [facility] 07/19/2023 14:02:52 08/09/2023 text/html Pt presents for skin tag removal. NATALY SCHMIDT Attn: Accounting,[address] [facility], [place], [address], [facility] 08/09/2023 16:59:06 12/13/2023 text/html Sara is a [...] due to ablation. She is requesting an veneer trimmer referral. She reports her gums are receding with minimal bleeding and concerned that it may be due to her hypothyroidism. NATALY SCHMIDT Attn: Accounting[address] [place], [address], [facility] 12/14/2023 08:38:19 01/03/2024 text/html Annual GYNReport ed [...] any complaints. ALEXANDER Lopez Attn: Accounting,[address] [place], [address], [facility] 01/03/2024 14:57:06 05/29/2024 text/html Pt presents with [...] Denies odynophagia. NATALY SCHMIDT Attn: Accounting,[address] , [place], [address], [facility] 05/29/2024 10:56:00 OBGyn Episode Ob Episode Information Episode Created Date Number of Fetuses Patient Bloodtype Patient rh Status Prepregnancy Weight lbs Domestic Partner Domestic Partner Phone Father Name Resident Physician Status 10/02/19 21 1 CLOSED Fetus Data First Name Last Name Admitted to NICU Weight (g) Sex Living Outcome Pediatric Complications Fetus ID Race Codes Race Delivery Type [id number] Kole Calculation Initial Kole Date Initial Exam [...] Post Complications Tubal Sterilization Discharge Date Comments Discharge Information Feeding Method Contraceptive Method Maternal HG B and HCT Levels Ob Episode Information Episode Created Date Number of Fetuses Patient Bloodtype Patient rh Status Prepregnancy Weight lbs Domestic Partner Domestic Partner Phone Father Name Resident Physician Status 10/02/19 21 1 CLOSED Fetus Data First Name Last Name Admitted to NICU Weight (g) Sex Living Outcome Pediatric Complications Fetus ID Race Codes Race Delivery Type 76378 Kole Calculation Initial Kole Date Initial Exam [...] Domestic Partner Domestic Partner Phone Father Name Resident Physician Status 10/02/19 21 1 CLOSED Fetus Data First Name Last Name Admitted to NICU Weight (g) Sex Living Outcome Pediatric Complications Fetus ID Race Codes Race Delivery Type 70376 Kole Calculation Initial Kole Date Initial Exam [...] Domestic Partner Domestic Partner Phone Father Name Resident Physician Status 10/02/19 21 1 CLOSED Fetus Data First Name Last Name Admitted to NICU Weight (g) Sex Living Outcome Pediatric Complications Fetus ID Race Codes Race Delivery Type 08193 Kole Calculation Initial Kole Date Initial Exam [...]
--- OUTSIDE RECORDS SUMMARY | 2024-12-04 06:45 | XMS_ITS | Data Portability ---
Author Organization 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 Imaging US, pelvis 2021 022 [address], [address], [place], [address], 18:02:09 US, transvagina l 2021 022 [address], [address], [place], [address], 18:02:09 Medication Orders progesteron e micronized 200 mg capsule 2021 022 [id number], [address] [place], [address], 11:34:05 Patient TargetsNo targets recorded. Patient InstructionsNo instructions recorded. Reason for Referral None Reported. Results Created Date Observation Date Name Description Value Unit Range Abnormal Flag Note LastModifiedBy Organization Detail LastModifiedTime 03/03/20 22 03/03/2022 CBC W/DIF F WBC 8.1 10'3/ uL 3.6-10 .2 Not Available [facility] [address] [place], [address], 03/08/2022 17:47:33 03/03/20 22 03/03/2022 CBC W/DIF F RBC 4.70 10'6/ uL (based on docume nted legal sex) 4.10-5 .30 Not Available [facility] [address] [place], [address], 03/08/2022 17:47:33 03/03/20 22 03/03/2022 CBC W/DIF F HGB 13.4 g/dL (based on docume nted legal sex) 11.9-1 5.8 Not Available [facility] [address] [place], [address], 03/08/2022 17:47:33 03/03/20 22 03/03/2022 CBC W/DIF F HCT 42.1 % (based on docume nted legal sex) 37.4-4 8.3 Not Available [facility] [address] [place], [address], 03/08/2022 17:47:33 03/03/20 22 03/03/2022 CBC W/DIF F MCV 89.0 fL 82.0-9 9.0 Not Available [facility] [address] [place], [address], 03/08/2022 17:47:33 03/03/20 22 03/03/2022 CBC W/DIF F MCH 28.0 pg 27.0-3 3.0 Not Available [facility] [address] [place], [address], 03/08/2022 17:47:33 03/03/20 22 03/03/2022 CBC W/DIF F MCHC 32.0 g/dL 32.0-3 6.0 Not Available [facility] [address] [place] [address], [address], 03/08/2022 17:47:33 03/03/20 22 03/03/2022 CBC W/DIF F RDW 14.0 % 11.0-1 5.0 Not Available [facility] [address] [place], [address], 03/08/2022 17:47:33 03/03/20 22 03/03/2022 CBC W/DIF F plt 471 10'3/ uL 150-45 0 high Not Available [facility] [address] [place] [address], [address], 03/08/2022 17:47:33 03/03/20 22 03/03/2022 CBC W/DIF F MPV 10.4 fL 9.8-12 .7 Not Available [facility] [address] [place] [address], [address], 03/08/2022 17:47:33 03/03/20 22 03/03/2022 CBC W/DIF F NRBC's 0.00 % 0 Not Available [facility] [address] [place] [address], [address], 03/08/2022 17:47:33 03/03/20 22 03/03/2022 CBC W/DIF F absolute NRBCs 0.0 10'3/ uL 0 Not Available [facility] [address] [place] [address], [address], 03/08/2022 17:47:33 03/03/20 22 03/03/2022 CBC W/DIF F neutrophils 69.0 % 37.0-7 2.0 Not Available [facility] [address] [place] [address], [address], 03/08/2022 17:47:33 03/03/20 22 03/03/2022 CBC W/DIF F lymphocytes 20.0 % 16.0-4 8.0 Not Available [facility] [address] [place] [address], [address], 03/08/2022 17:47:33 03/03/20 22 03/03/2022 CBC W/DIF F monocytes 8.0 % 4.0-14 .0 Not Available [facility] [address] [place] [address], [address], 03/08/2022 17:47:33 03/03/20 22 03/03/2022 CBC W/DIF F eosinophils 2.0 % 0.0-9. 0 Not Available [facility] [address] [place] [address], [address], 03/08/2022 17:47:33 03/03/20 22 03/03/2022 CBC W/DIF F basophils 1.0 % 0.0-2. 0 Not Available [facility] [address] [place] [address], [address], 03/08/2022 17:47:33 03/03/20 22 03/03/2022 CBC W/DIF F immature granulocytes 0.0 % no define d refere nce range Not Available [facility] [address] [place] [address], [address], 03/08/2022 17:47:33 03/03/20 22 03/03/2022 CBC W/DIF F absolute neutrophils 5.6 10'3/ uL 1.1-6. 0 Not Available [facility] [address] [place] [address], [address], 03/08/2022 17:47:33 03/03/20 22 03/03/2022 CBC W/DIF F absolute lymphocytes 1.6 10'3/ uL 0.7-3. 4 Not Available [facility] [address] [place], [address], 03/08/2022 17:47:33 03/03/20 22 03/03/2022 CBC W/DIF F absolute monocytes 0.6 10'3/ uL 0.3-1. 0 Not Available [facility] [address] [place], [address], 03/08/2022 17:47:33 03/03/20 22 03/03/2022 CBC W/DIF F absolute eosinophils 0.1 10'3/ uL 0.0-0. 6 Not Available [facility] [address] [place], [address], 03/08/2022 17:47:33 03/03/20 22 03/03/2022 CBC W/DIF F absolute basophils 0.1 10'3/ uL 0.0-0. 1 Not Available [facility] [address] [place], [address], 03/08/2022 17:47:33 03/03/20 22 03/03/2022 CBC W/DIF [...] ts are expec donte. Not Available [facility] [address] [place], [address], 03/08/2022 17:47:33 03/03/20 22 03/03/2022 HEMOG LOBIN [...] >8.0% Actio n sugge sted Not Available [facility] [address] [place], [address], 03/08/2022 17:47:34 03/03/20 22 03/03/2022 DHEA SULFA TE DHEA-sulfate 172 ug/dL Femal e Range s Age(y ) Range (ug/d L) 10-15 34-28 0 15-20 65-36 8 20-25 148-4 07 25-35 99-34 0 35-45 61-33 7 45-55 35-25 6 55-65 19-20 5 65-75 9-246 > 75 12-15 4 Not Available [facility] [address] [place], [address], 03/08/2022 17:47:34 03/03/20 22 03/03/2022 PROGE STERO [...] Trime ster5 8.70- 214.0 0 Not Available [facility] [address] [place], [address], 03/08/2022 17:47:35 03/03/20 22 03/03/2022 PROLA CTIN prolactin, total 18.30 NG/mL 4.79-2 3.30 This assay was perfo rmed using [employer] ratio n reage nts and test kits. Value s obtai deepali with other assay metho ds or kits canno t be used inter [facility] . Not Available [facility] [address] [place], [address], 03/08/2022 17:47:35 03/03/20 22 03/03/2022 FSH, LH, ESTRA DIOL estradiol 370.0 pg/mL This assay was perfo rmed using [employer] reage nts and test kits. Value s obtai deepali with other assay metho ds or kits canno t be used inter [facility] . Femal e Estra diol Range s: Folli cular phase 12.4- 233 pg/mL Ovula tion phase 41.0- 398 pg/mL Lutea l phase 22.3- 341 pg/mL Postm enopa usal< 5-138 pg/mL Healt hy Pregn ant Women 1st Trime ster1 54-32 43 pg/mL 2nd Trime ster1 561-2 1280 pg/mL 3rd Trime ster8 525-> 49689 pg/mL Not Available [facility] [address] [place], [address], 03/08/2022 17:47:35 03/03/20 22 03/03/2022 FSH, LH, ESTRA DIOL FSH 5.4 mIU/m L This assay was perfo rmed using [employer] reage nts and test kits. Value s obtai deepali with other assay metho ds or kits canno t be used inter [facility] . Femal es Folli cular : 3.5-1 2.5 mIU/m L Ovula tion: 4.7-2 1.5 mIU/m L Lutea l: 1.7-7 .7 mIU/m L Postm enopa use: 25.8- 134.8 mIU/m L Not Available [facility] [address] [place], [address], 03/08/2022 17:47:35 03/03/20 22 03/03/2022 FSH, LH, [...] 7.7-5 8.5 mIU/m L Not Available [facility] [address] [place], [address], 03/08/2022 17:47:35 03/03/20 22 03/03/2022 HUMAN SEX HORMO NE JUANY NG GLOBU ODALYS sex hormone binding globulin 69.5 nmole s/L 18.2-1 35.5 Not Available [facility] [address] [place], [address], 03/08/2022 17:47:36 03/03/20 22 03/03/2022 TSH, REFLE X FREE T4 TSH 0.64 uIU/m L 0.30-5 .33 Not Available [facility] [address] [place], [address], 03/08/2022 17:47:36 03/03/20 22 03/03/2022 TESTO STERO NE, FREE( DIALY SIS) AND TOTAL (LC/M S/MS) testosterone , total 50 NG/dL 2-45 high For addit ional infor jose miguel braxton e refer to http: //matias wiggins.que stdia gnost ics.c om/fa q/Tot [facility] (This link is being provi ded for infor matio nal/ educa grecia l purpo ses only. ) This test was devel oped and its godfrey tical perfo rmanc e charles cteri stics have been deter mined by [employer]. It has not been clear ed or appro roseline by the FDA. This assay has been valid ated pursu ant to the CLIA regul ation s and is used for clini javed purpo ses. Not Available [facility] [address] [place], [address], 03/08/2022 17:47:37 03/03/2003/03/2022 TESTO STERO NE, FREE( DIALY SIS) AND TOTAL (LC/M S/MS) testosterone , free 3.5 pg/mL 0.1-6. 4 This test was devel oped and its godfrey tical perfo rmanc e charles cteri stics have been deter mined by [employer]. It has not been clear ed or appro roseline by the FDA. This assay has been valid ated pursu ant to the CLIA regul ation s and is used for clini javed purpo ses. Perfo rming Organ izati on Infor matio n: Site ID: [id number] Name: [employer] [facility]Ravi jacky Andradeen marshal Addre ss: [id number] [place] [address] Direc tor: Davis perkins M.D. Not Available [facility] [address] [place], [address], 03/08/2022 17:47:37 04/18/20 22 04/18/2022 IMAGE GUIDE [...] as clini jaycee warra nted. Not Available [facility] [address], [place], [address], 04/22/2022 21:42:14 03/17/20 22 03/17/2022 US, pelvi s No observ ation record ed. [place] [address] [facility] [address], [place], [address], 03/17/2022 16:07:06 03/17/20 22 03/17/2022 US, trans vagin al No observ ation record ed. [place] [address] [facility] [address], [place], [address], 03/17/2022 16:07:15 03/17/20 22 03/17/2022 US, pelvi s No observ ation record ed. [email or web address], [place], [address], 03/17/2022 20:01:11 03/17/20 22 03/17/2022 US, pelvi s No observ ation record ed. [email or web address], [place], [address], 03/17/2022 20:01:11 Result Notes None recorded. Procedures Surgical History Date Name Laterality Status Provider Name and Address Organization Details Recorded Time 2 HYSTEROSCOPY, WITH ENDOMETRIAL ABLATION (SURG) completed [facility] 06/13/2022 11:26:04 2 HYSTEROSCOPY, WITH ENDOMETRIAL ABLATION (SURG) completed [facility] 06/06/2022 11:27:48 2 Endometrial Ablation completed [facility] 06/09/2022 09:47:01 5 Date of Last Pap Smear completed [facility] 03/03/2022 09:44:49 0 completed [facility] 03/03/2022 09:44:49 8 Caesarean Section completed [facility] 06/09/2022 09:47:01 Ovarian Cystectomy completed [facility] 03/03/2022 09:45:00 Tubal Ligation completed [facility] 03/03/2022 09:45:00 Thyroid Surgery completed [facility] 03/03/2022 09:45:00 Colonoscopy completed [facility] 03/03/2022 09:45:00 Caesarean Section completed [facility] 03/03/2022 09:45:00 LEEP completed [facility] 06/09/2022 09:47:01 Dilation and Curettage completed [facility] 06/09/2022 09:47:01 Imaging Results Imaging Date Name Status LastModified by Organization Details LastModified Time 03/17/2022 US, pelvis completed [email or web address] [place] [address], [place], [address], 03/17/2022 16:07:06 03/17/2022 US, transvaginal completed [email or web address] [place] [facility] [address], [place], [address], 03/17/2022 16:07:15 03/17/2022 US, pelvis completed [email or web address], [place], [address], 03/17/2022 20:01:11 03/17/2022 US, pelvis completed [email or web address], [place], [address], 03/17/2022 20:01:11 Procedure Notes None recorded. Medical Equipment None Reported. Allergies Allergen ID Allergen Name Allergen Category Reaction Reaction Severity Criticality Documentation Date Start Date Code Code System Note Provider Name and Address Organization Details Recorded Time 52843 amoxicill in medicatio n rash moderate Not available 03/03/2022 723 RxNorm Makeda Maggy [facility] 2 09:44:38 63745 Bactrim medicatio n hives severe Not available 03/03/2022 65106 9 RxNorm Makeda [facility] 2 09:44:38 Medications Name Sig Start [...] Updated DateTime 03/17/2022 173.99 cm 41.5 kg/m2 126431.0 9 g 124 mm[Hg] 91 mm[Hg] [facility] 2 14:33:58 Date Recorded Body height Body mass index (BMI) Body weight Systolic blood pressure Diastolic blood pressure Provider Name and Address Organization Details Last Updated DateTime 03/28/2022 173.99 cm 41.5 kg/m2 028093.0 9 g 137 mm[Hg] 96 mm[Hg] [facility] 2 10:22:05 Date Recorded Body height Body mass index (BMI) Body weight Systolic blood pressure Diastolic blood pressure Provider Name and Address Organization Details Last Updated DateTime 04/18/2022 173.99 cm 41.2 kg/m2 558488.9 g 125 mm[Hg] 91 mm[Hg] [facility] 2 10:47:28 Date Recorded Body height Body mass index (BMI) Body weight Systolic blood pressure Diastolic blood pressure Provider Name and Address Organization Details Last Updated DateTime 06/09/2022 173.99 cm 41.5 kg/m2 251615.0 9 g 123 mm[Hg] 90 mm[Hg] [facility] 2 09:46:39 Social History Question Answer Notes LastModified by Organizat ion Details LastModified Time Tobacco Smoking Status Never Smoker Ana Maria Diego [facility] 06/09/2022 09:30:06 Do You [...] Or The Highest Degree You Have Received? 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 [id number] Information not available 03/03/2022 Do You Use [...] SNOMED-CT Code Diagnosis ICD10 Code Diagnosis Note [id number] Kraig Lopes MD [place] [address] [address] 03/03/2022 09:11:43 03/03/2022 10:26:07 Abnormal uterine bleeding 0659117056 9100 N93.9 [id number] Gloria Rivera [place] [address] [address] 03/17/2022 13:43:48 03/17/2022 14:34:56 Pain in pelvis 14003570 R10.2 [id number] Kraig Lopes MD [place] [address] [address] 03/17/2022 13:45:03 03/17/2022 16:02:12 Menorrhagia 278594005 N92.0 Dysmenorrhea 909178587 N 94.6 This patient is a 41-year-ol [...] l ablation if her heavy bleeding persist. [id number] Kraig Lopes MD [place] [address] [address] 03/28/2022 09:54:21 03/28/2022 11:23:54 Menorrhagia 243804298 N92.0 this patient is a 41-year-ol d female with severe menorrhagi a. We have agreed to perform endometria l ablation. She understand s the risks, benefits, and alternativ es. She has completed the informed consent process and is ready to proceed. [id number] Kraig Lopes MD [place] [address] [address] 04/18/2022 10:22:55 04/18/2022 11:57:47 Abnormal uterine bleeding 0383724533 9100 N93.9 Gynecologi c examination 27214134 Z01.419 Annual gynecologi javed exam performed. Patient [...] email. Mammogram - ordered Pap - today [id number] Kraig Lopes MD [place] [address] [address] 06/09/2022 09:29:25 06/09/2022 10:43:50 Menorrhagia 591711369 N92.0 this patient is a 41-year-ol d [...] Ozuna Member ID Guarantor Name 03/17/2022 1 [facility] (MEDICAID HMO) [id number] Sara Yohannes [id number] Sara Yohannes 03/28/2022 1 [facility] (MEDICAID HMO) [id number] Sara Yohannes [id number] Sara Yohannes 04/18/2022 1 [facility] (MEDICAID HMO) [id number] Sara Yohannes [id number] Sara Yohannes 06/09/2022 1 [facility] (MEDICAID HM) [id number] Sara Yohannes [id number] Sara Yohannes Notes Date Note Type Note [...] treatment options. We spent over 20 minutes [id number]. More than 50% was counseling. She leans towards endometrial ablation if her heavy bleeding persist. Kraig Lopes MD [address], [place], [address], [facility] 03/17/2022 15:11:38 03/28/2022 text/html This patient [...] ablation. We spent more than 15 minutes [id number]. More than 50% was counseling. I explained [...] infection. Kraig Lopes MD [address], [place], [address], [facility] 03/28/2022 11:09:14 04/18/2022 text/html Annual GYNReport [...] exercise Kraig Lopes MD [address], [place], [address], [facility] 04/18/2022 11:41:25 06/09/2022 text/html this patient is a 41-year-old female presents for follow-up on menorrhagia. She underwent endometrial ablation. She has no abnormal symptoms. She is recovering normally it sounds. Will observe for bleeding. Kraig Lopes MD [address], [place], [address], [facility] 06/09/2022 10:19:05 OBGyn Episode No OBEpisode recorded.
[2024-12-04 07:13] LABS: Estimated Glomerular Filt Rate > 60
== END 2024-12-04 06:39 | disposition home or self-care (01) ==
LOC: ANHIMG 06:42
PROVIDERS: PCP Physician Assistant; Visit Provider Internal Medicine
DX: C73 Malignant neoplasm of thyroid gland (principal); C79.9 Secondary malignant neoplasm of unspecified site
CPT/HCPCS: 70491; 71260; Q9967

== ENCOUNTER 2024-12-10 13:47 | Outpatient (CLI) | payer BC, SELFPAY ==
--- NOTE | ~2024-12-10 | PE_ITS ---
EXAMINATION: PET skull to mid thigh DATE: 12/10/2024 15:31 INDICATION: Metastatic thyroid cancer TECHNIQUE: Blood glucose level was 80 mg/dL. 10.762 mCi of 18-fluorodeoxyglucose (18-FDG) was adminis tered i.v. Low dose computed tomography (CT) images were acquired from the base of the brain to the p roximal thighs for attenuation correction and anatomic localization. Positron emission tomography (PE T) images were acquired in the same distribution beginning 47 minutes after injection. Images includi ng fused PET/CT images were reconstructed in axial, coronal, and sagittal planes. Automated exposure control technique was employed. The dose-length product was 1298.05mGy-cm. COMPARISON: CT dated 12/14/2024 and 06/21/2013 FINDINGS: Head/neck: Chronic postoperative change of prior thoracotomy with multiple surgical clips the thyroid fossa. No abnormal soft tissue nodules or FDG uptake at the thyroid fossa to suggest locally recurrent disease. There are multiple additional surgical clips extending craniocaudally along the right jugular chain suggesting prior lymph node dissection occurring within the interval between the prior CT studies and 12/14/2024. Enlarged 1.8 x 1.5 cm jugular chain lymph node near the angle of the mandible with mild FDG uptake with maximal SUV of 5.1. No other pathologically enlarged cervical lymph nodes. There is additional mild FDG uptake associated with a few additional normal sized lymph nodes in the bilateral submandibular and submental regions, the left jugular chain and bilateral posterior cervica l triangles. There is symmetric increased activity in the oral cavity, at the nares, palatine tonsils and adenoids, laryngeal muscles and ocular muscles without CT correlate, likely physiologic Chest: Mild dependent atelectasis in both lungs. No suspicious pulmonary nodules, pulmonary edema, pneumonia or pleural effusion. Heart size is normal. No pericardial effusion. Thoracic aorta is normal in rose ioana. Small sliding-type hiatal hernia. No pathologically enlarged or abnormally FDG avid thoracic lym phadenopathy. Abdomen/pelvis/proximal thighs: Physiologic renal accumulation and excretion of FDG activity in the kidneys, bladder and along portio ns of ureters. Normal degree and heterogenous pattern of increased uptake throughout the liver withou t radiologic correlate or dominant FDG avid lesion. The gallbladder, pancreas, spleen and bilateral a drenal glands are normal. Mild uptake scattered throughout the bowels without radiologic correlate, a lso likely physiologic. There are few scattered clonic diverticula without adjacent inflammatory stra nding to suggest diverticulitis. Retroflexed uterus is unremarkable. No other abnormal foci of increa sed FDG uptake or pathologically enlarged lymphadenopathy in the abdomen, pelvis or proximal thighs. Musculoskeletal: Small left supra-acetabular bone island without evident FDG activity. No other suspicious lytic, tonya tic or abnormally FDG avid bone lesions. IMPRESSION: 1. Mild FDG uptake associated with a several normal sized bilateral cervical lymph nodes and a mildly enlarged right jugular chain lymph node near the angle of the mandible. Differential would include r eactive lymphadenopathy versus metastatic disease. Ultrasound-guided biopsy of the right jugular vernon n lymph node is planned. 2. Stable appearance of change of prior thyroidectomy with no abnormal soft tissue or increased FDG u ptake to suggest locally recurrent disease. 3. No other FDG avid lesions suspicious for primary or metastatic disease in the chest, abdomen or pe lvis. Reviewed, dictated and finalized at location A. IMPRESSION: 1. Mild FDG uptake associated with a several normal sized bilateral cervical ly mph nodes and a mildly enlarged right jugular chain lymph node near the angle o f the mandible. Differential would include reactive lymphadenopathy versus meta static disease. Ultrasound-guided biopsy of the right jugular chain lymph node is planned. 2. Stable appearance of change of prior thyroidectomy with no abnormal soft tis selene or increased FDG uptake to suggest locally recurrent disease. 3. No other FDG avid lesions suspicious for primary or metastatic disease in th e chest, abdomen or pelvis.
[2024-12-10 14:11] LABS: Glucose Point of Care 80 mg/dl (65-105)
--- OUTSIDE RECORDS SUMMARY | 2024-12-10 14:58 | XMS_ITS | Data Portability ---
Author Organization [facility] Address [address] [place] [address] Care Team Providers Care Intern Product Marketing Manager Name Role Phone GIDEON ELDER Primary Care [...] None recorded. Imaging US, pelvis 2021 022 [address], [address], [place], [address], 18:02:09 US, transvagina l 2021 [address], [address], [place], [address], 18:02:09 Medication Orders progesteron e micronized 200 mg capsule 2021 022 [id number], [address] [place], [address], 11:34:05 Patient TargetsNo targets recorded. Patient InstructionsNo instructions recorded. Reason for Referral None Reported. Results Created Date Observation Date Name Description Value Unit Range Abnormal Flag Note LastModifiedBy Organization Detail LastModifiedTime 03/03/20 22 03/03/2022 CBC W/DIF F WBC 8.1 10'3/ uL 3.6-10 .2 Not Available [facility] [address] [place], [address], 03/08/2022 17:47:33 03/03/20 22 03/03/2022 CBC W/DIF F RBC 4.70 10'6/ uL (based on docume nted legal sex) 4.10-5 .30 Not Available [facility] [address] [place], [address], 03/08/2022 17:47:33 03/03/20 22 03/03/2022 CBC W/DIF F HGB 13.4 g/dL (based on docume nted legal sex) 11.9-1 5.8 Not Available [facility] [address] [place], [address], 03/08/2022 17:47:33 03/03/20 22 03/03/2022 CBC W/DIF F HCT 42.1 % (based on docume nted legal sex) 37.4-4 8.3 Not Available [facility] [address] [place], [address], 03/08/2022 17:47:33 03/03/20 22 03/03/2022 CBC W/DIF F MCV 89.0 fL 82.0-9 9.0 Not Available [facility] [address] [place], [address], 03/08/2022 17:47:33 03/03/20 22 03/03/2022 CBC W/DIF F MCH 28.0 pg 27.0-3 3.0 Not Available [facility] [address] [place], [address], 03/08/2022 17:47:33 03/03/20 22 03/03/2022 CBC W/DIF F MCHC 32.0 g/dL 32.0-3 6.0 Not Available [facility] [address] [place] [address], [address], 03/08/2022 17:47:33 03/03/20 22 03/03/2022 CBC W/DIF F RDW 14.0 % 11.0-1 5.0 Not Available [facility] [address] [place], [address], 03/08/2022 17:47:33 03/03/20 22 03/03/2022 CBC W/DIF F plt 471 10'3/ uL 150-45 0 high Not Available [facility] [address] [place] [address], [address], 03/08/2022 17:47:33 03/03/20 22 03/03/2022 CBC W/DIF F MPV 10.4 fL 9.8-12 .7 Not Available [facility] [address] [place] [address], [address], 03/08/2022 17:47:33 03/03/20 22 03/03/2022 CBC W/DIF F NRBC's 0.00 % 0 Not Available [facility] [address] [place] [address], [address], 03/08/2022 17:47:33 03/03/20 22 03/03/2022 CBC W/DIF F absolute NRBCs 0.0 10'3/ uL 0 Not Available [facility] [address] [place] [address], [address], 03/08/2022 17:47:33 03/03/20 22 03/03/2022 CBC W/DIF F neutrophils 69.0 % 37.0-7 2.0 Not Available [facility] [address] [place] [address], [address], 03/08/2022 17:47:33 03/03/20 22 03/03/2022 CBC W/DIF F lymphocytes 20.0 % 16.0-4 8.0 Not Available [facility] [address] [place] [address], [address], 03/08/2022 17:47:33 03/03/20 22 03/03/2022 CBC W/DIF F monocytes 8.0 % 4.0-14 .0 Not Available [facility] [address] [place] [address], [address], 03/08/2022 17:47:33 03/03/20 22 03/03/2022 CBC W/DIF F eosinophils 2.0 % 0.0-9. 0 Not Available [facility] [address] [place] [address], [address], 03/08/2022 17:47:33 03/03/20 22 03/03/2022 CBC W/DIF F basophils 1.0 % 0.0-2. 0 Not Available [facility] [address] [place] [address], [address], 03/08/2022 17:47:33 03/03/20 22 03/03/2022 CBC W/DIF F immature granulocytes 0.0 % no define d refere nce range Not Available [facility] [address] [place] [address], [address], 03/08/2022 17:47:33 03/03/20 22 03/03/2022 CBC W/DIF F absolute neutrophils 5.6 10'3/ uL 1.1-6. 0 Not Available [facility] [address] [place] [address], [address], 03/08/2022 17:47:33 03/03/20 22 03/03/2022 CBC W/DIF F absolute lymphocytes 1.6 10'3/ uL 0.7-3. 4 Not Available [facility] [address] [place], [address], 03/08/2022 17:47:33 03/03/20 22 03/03/2022 CBC W/DIF F absolute monocytes 0.6 10'3/ uL 0.3-1. 0 Not Available [facility] [address] [place], [address], 03/08/2022 17:47:33 03/03/20 22 03/03/2022 CBC W/DIF F absolute eosinophils 0.1 10'3/ uL 0.0-0. 6 Not Available [facility] [address] [place], [address], 03/08/2022 17:47:33 03/03/20 22 03/03/2022 CBC W/DIF F absolute basophils 0.1 10'3/ uL 0.0-0. 1 Not Available [facility] [address] [place], [address], 03/08/2022 17:47:33 03/03/20 22 03/03/2022 CBC W/DIF [...] ts are expec donte. Not Available [facility] [address] [place], [address], 03/08/2022 17:47:33 03/03/20 22 03/03/2022 HEMOG LOBIN [...] >8.0% Actio n sugge sted Not Available [facility] [address] [place], [address], 03/08/2022 17:47:34 03/03/20 22 03/03/2022 DHEA SULFA TE DHEA-sulfate 172 ug/dL Femal e Range s Age(y ) Range (ug/d L) 10-15 34-28 0 15-20 65-36 8 20-25 148-4 07 25-35 99-34 0 35-45 61-33 7 45-55 35-25 6 55-65 19-20 5 65-75 9-246 > 75 12-15 4 Not Available [facility] [address] [place], [address], 03/08/2022 17:47:34 03/03/20 22 03/03/2022 PROGE STERO [...] Trime ster5 8.70- 214.0 0 Not Available [facility] [address] [place], [address], 03/08/2022 17:47:35 03/03/20 22 03/03/2022 PROLA CTIN prolactin, total 18.30 NG/mL 4.79-2 3.30 This assay was perfo rmed using [employer] ratio n reage nts and test kits. Value s obtai deepali with other assay metho ds or kits canno t be used inter [facility] . Not Available [facility] [address] [place], [address], 03/08/2022 17:47:35 03/03/20 22 03/03/2022 FSH, LH, ESTRA DIOL estradiol 370.0 pg/mL This assay was perfo rmed using [employer] reage nts and test kits. Value s obtai deepali with other assay metho ds or kits canno t be used inter [facility] . Femal e Estra diol Range s: Folli cular phase 12.4- 233 pg/mL Ovula tion phase 41.0- 398 pg/mL Lutea l phase 22.3- 341 pg/mL Postm enopa usal< 5-138 pg/mL Healt hy Pregn ant Women 1st Trime ster1 54-32 43 pg/mL 2nd Trime ster1 561-2 1280 pg/mL 3rd Trime ster8 525-> 98413 pg/mL Not Available [facility] [address] [place], [address], 03/08/2022 17:47:35 03/03/20 22 03/03/2022 FSH, LH, ESTRA DIOL FSH 5.4 mIU/m L This assay was perfo rmed using [employer] reage nts and test kits. Value s obtai deepali with other assay metho ds or kits canno t be used inter [facility] . Femal es Folli cular : 3.5-1 2.5 mIU/m L Ovula tion: 4.7-2 1.5 mIU/m L Lutea l: 1.7-7 .7 mIU/m L Postm enopa use: 25.8- 134.8 mIU/m L Not Available [facility] [address] [place], [address], 03/08/2022 17:47:35 03/03/20 22 03/03/2022 FSH, LH, [...] [facility] [address] [place], [address], 03/08/2022 17:47:35 03/03/20 22 03/03/2022 HUMAN SEX HORMO NE JUANY NG GLOBU ODALYS sex hormone binding globulin 69.5 nmole s/L 18.2-1 35.5 Not Available [facility] [address] [place], [address], 03/08/2022 17:47:36 03/03/20 22 03/03/2022 TSH, REFLE X FREE T4 TSH 0.64 uIU/m L 0.30-5 .33 Not Available [facility] [address] [place], [address], 03/08/2022 17:47:36 03/03/20 22 03/03/2022 TESTO STERO NE, FREE( DIALY SIS) AND TOTAL (LC/M S/MS) testosterone , total 50 NG/dL 2-45 high For addit ional infor jose miguel braxton e refer to http: //matias wiggins.que stdia gnost ics.c om/fa q/Tot [facility] (This link is being provi ded for infor matio nal/ educa grecia l purpo ses only. ) This test was devel oped and its godfrey tical perfo rmanc e charles cteri stics have been deter mined by [facility]. It has not been clear ed or appro roseline by the FDA. This assay has been valid ated pursu ant to the CLIA regul ation s and is used for clini javed purpo ses. Not Available [facility] [address] [place], [address], 03/08/2022 17:47:37 03/03/2003/03/2022 TESTO STERO NE, FREE( DIALY SIS) AND TOTAL (LC/M S/MS) testosterone , free 3.5 pg/mL 0.1-6. 4 This test was devel oped and its godfrey tical perfo rmanc e charles cteri stics have been deter mined by [facility]. It has not been clear ed or appro roseline by the FDA. This assay has been valid ated pursu ant to the CLIA regul ation s and is used for clini javed purpo ses. Perfo rming Organ izati on Infor matio n: Site ID: [id number] Name: [facility]-Ravi jacky Andradeen marshal Addre ss: [id number] [place] [address] Direc tor: Davis perkins M.D. Not Available [facility] [address] [place], [address], 03/08/2022 17:47:37 04/18/20 22 04/18/2022 IMAGE GUIDE [...] as clini jaycee warra nted. Not Available [facility] [address], [place], [address], 04/22/2022 21:42:14 03/17/20 22 03/17/2022 US, pelvi s No observ ation record ed. [place] [address] [facility] [address], [place], [address], 03/17/2022 16:07:06 03/17/20 22 03/17/2022 US, trans vagin al No observ ation record ed. [place] [address] [facility] [address], [place], [address], 03/17/2022 16:07:15 03/17/20 22 03/17/2022 US, pelvi s No observ ation record ed. [email or web address], [place], [address], 03/17/2022 20:01:11 03/17/20 22 03/17/2022 US, pelvi s No observ ation record ed. [email or web address], [place], [address], 03/17/2022 20:01:11 Result Notes None recorded. Procedures Surgical History Date Name Laterality Status Provider Name and Address Organization Details Recorded Time 2 HYSTEROSCOPY, WITH ENDOMETRIAL ABLATION (SURG) completed [facility] 06/13/2022 11:26:04 2 HYSTEROSCOPY, WITH ENDOMETRIAL ABLATION (SURG) completed [facility] 06/06/2022 11:27:48 2 Endometrial Ablation completed [facility] 06/09/2022 09:47:01 5 Date of Last Pap Smear completed [facility] 03/03/2022 09:44:49 0 completed [facility] 03/03/2022 09:44:49 8 Caesarean Section completed [facility] 06/09/2022 09:47:01 Ovarian Cystectomy completed [facility] 03/03/2022 09:45:00 Tubal Ligation completed [facility] 03/03/2022 09:45:00 Thyroid Surgery completed [facility] 03/03/2022 09:45:00 Colonoscopy completed [facility] 03/03/2022 09:45:00 Caesarean Section completed [facility] 03/03/2022 09:45:00 LEEP completed [facility] 06/09/2022 09:47:01 Dilation and Curettage completed [facility] 06/09/2022 09:47:01 Imaging Results Imaging Date Name Status LastModified by Organization Details LastModified Time 03/17/2022 US, pelvis completed [email or web address] [facility] [address], [place], [address], 03/17/2022 16:07:06 03/17/2022 US, transvaginal completed [email or web address] [facility] [address], [place], [address], 03/17/2022 16:07:15 03/17/2022 US, pelvis completed [email or web address], [place], [address], 03/17/2022 20:01:11 03/17/2022 US, pelvis completed [email or web address], [place], [address], 03/17/2022 20:01:11 Procedure Notes None recorded. Medical Equipment None Reported. Allergies Allergen ID Allergen Name Allergen Category Reaction Reaction Severity Criticality Documentation Date Start Date Code Code System Note Provider Name and Address Organization Details Recorded Time 88857 amoxicill in medicatio n rash moderate Not available 03/03/2022 723 RxNorm Makeda Maggy [facility] 2 09:44:38 91229 Bactrim medicatio n hives severe Not available 03/03/2022 74186 9 RxNorm Makeda [facility] 2 09:44:38 Medications Name Sig [...] Updated DateTime 03/17/2022 173.99 cm 41.5 kg/m2 279680.0 9 g 124 mm[Hg] 91 mm[Hg] [facility] 2 14:33:58 Date Recorded Body height Body mass index (BMI) Body weight Systolic blood pressure Diastolic blood pressure Provider Name and Address Organization Details Last Updated DateTime 03/28/2022 173.99 cm 41.5 kg/m2 538421.0 9 g 137 mm[Hg] 96 mm[Hg] [facility] 2 10:22:05 Date Recorded Body height Body mass index (BMI) Body weight Systolic blood pressure Diastolic blood pressure Provider Name and Address Organization Details Last Updated DateTime 04/18/2022 173.99 cm 41.2 kg/m2 773748.9 g 125 mm[Hg] 91 mm[Hg] [facility] 2 10:47:28 Date Recorded Body height Body mass index (BMI) Body weight Systolic blood pressure Diastolic blood pressure Provider Name and Address Organization Details Last Updated DateTime 06/09/2022 173.99 cm 41.5 kg/m2 602013.0 9 g 123 mm[Hg] 90 mm[Hg] [facility] 2 09:46:39 Social History Question Answer Notes LastModified by Organizat ion Details LastModified Time Tobacco Smoking Status Never Smoker Ana Maria Diego [facility] 06/09/2022 09:30:06 Do You Have An [...] Or The Highest Degree You Have Received? 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 [id number] Information not available 03/03/2022 Do You Use [...] SNOMED-CT Code Diagnosis ICD10 Code Diagnosis Note [id number] Kraig Lopes MD [facility] [address] [address] 03/03/2022 09:11:43 03/03/2022 10:26:07 Abnormal uterine bleeding 5749404511 9100 N93.9 [id number] Gloria Rivera [facility] [address] [address] 03/17/2022 13:43:48 03/17/2022 14:34:56 Pain in pelvis 92988329 R10.2 [id number] Kraig Lopes MD [facility] [address] [address] 03/17/2022 13:45:03 03/17/2022 16:02:12 Menorrhagia 738264406 N92.0 Dysmenorrhea 299108765 N 94.6 This patient is a 41-year-ol [...] l ablation if her heavy bleeding persist. [id number] Kraig Lopes MD [facility] [address] [address] 03/28/2022 09:54:21 03/28/2022 11:23:54 Menorrhagia 366162069 N92.0 this patient is a 41-year-ol d female with severe menorrhagi a. We have agreed to perform endometria l ablation. She understand s the risks, benefits, and alternativ es. She has completed the informed consent process and is ready to proceed. [id number] Kraig Lopes MD [facility] [address] [address] 04/18/2022 10:22:55 04/18/2022 11:57:47 Abnormal uterine bleeding 1963954951 9100 N93.9 Gynecologi c examination 66510897 Z01.419 Annual gynecologi javed exam performed. Patient [...] email. Mammogram - ordered Pap - today [id number] Kraig Lopes MD [facility] [address] [address] 06/09/2022 09:29:25 06/09/2022 10:43:50 Menorrhagia 951276702 N92.0 this patient is a 41-year-ol d [...] Ozuna Member ID Guarantor Name 03/17/2022 1 [facility] (MEDICAID HMO) [id number] Sara Yohannes [id number] Sara Yohannes 03/28/2022 1 [facility] (MEDICAID HMO) [id number] Sara Yohannes [id number] Sara Yohannes 04/18/2022 1 [facility] (MEDICAID HMO) [id number] Sara Yohannes [id number] Sara Yohannes 06/09/2022 1 [facility] (MEDICAID HM) [id number] Sara Yohannes [id number] Sara Yohannes Notes Date Note Type Note [...] treatment options. We spent over 20 minutes [id number]. More than 50% was counseling. She leans towards endometrial ablation if her heavy bleeding persist. Kraig Lopes MD [address], [place], [address], [facility] 03/17/2022 15:11:38 03/28/2022 text/html This patient [...] ablation. We spent more than 15 minutes [id number]. More than 50% was counseling. I explained [...] infection. Kraig Lopes MD [address], [place], [address], [facility] 03/28/2022 11:09:14 04/18/2022 text/html Annual [...] exercise Kraig Lopes MD [address], [place], [address], [facility] 04/18/2022 11:41:25 06/09/2022 text/html this patient is a 41-year-old female presents for follow-up on menorrhagia. She underwent endometrial ablation. She has no abnormal symptoms. She is recovering normally it sounds. Will observe for bleeding. Kraig Lopes MD [address], [place], [address], [facility] 06/09/2022 10:19:05 OBGyn Episode No OBEpisode recorded.
--- OUTSIDE RECORDS SUMMARY | 2024-12-10 14:58 | XMS_ITS | Data Portability ---
Author Organization [facility] COLLEENDiana [facility] Address [address] [place] [address] Care Team Providers Care Bumper Operator Name Role Phone SUN ELDER Primary [...] where specifically documented or amended. -Sun Elder, [facility], PAUmeshC [email or web address] Not available 12/13/2023 15:01:31 Plan of Treatment Reminders Order Date Submit Date Provider Last Modified By Organization Details Last Modified Time Details Appointments None recorded. Lab TSH + free T4, serum 2023 [facility], [address] [facility], [address], [place], [address], 12:16:57 T3, free, serum or plasma 2023 024 [facility], [address] [facility], [address], [place], [address], 4 12:16:58 cytology report, thin prep, smear or scraping, cervical or vaginal - brush and broom 2023 024 [facility], [address] [facility], [address], [place], [address], 4 11:10:32 lh + FSH, serum 2023 024 [facility], [address] [facility], [address], [place], [address], 4 08:34:38 estradiol , serum 2023 024 [facility], [address] [facility], [address], [place], [address], 4 08:34:36 progester one, serum 2023 024 [facility], [address] [place] [address], [address], [place], [address], 4 08:34:36 CMP, serum or plasma 2023 024 [facility], [address], [place], [address], 4 08:34:34 lipid panel, serum 2023 024 [facility], [address], [place], [address], 4 08:34:34 CBC w/ auto diff 2023 024 [facility], [address], [place], [address], 4 08:34:37 HbA1c (hemoglob in A1c), blood 2023 024 [facility], [address], [place], [address], 4 08:34:35 TSH + free T4, serum 2023 024 [facility], [address], [place], [address], 4 08:34:33 pathology study - SKIN TAGS TO BACK, SHOULDER, ABDOMEN, AND AXILLA 2022 023 [facility], [facility] [facility], [address], [place], [address], 3 19:08:31 TSH + free T4, serum 2022 023 [facility], [address] [place] [address], [address], [place], [address], 3 08:22:10 T3, free, serum or plasma 2022 023 [facility], [address] [place] [address], [address], [place], [address], 3 08:22:10 Referral endocrino logy referral [address] - Endocrinology , [address], [place], [address], 4 08:01:23 obstetric judy and gynecolog ist referral 2023 024 ketan Márquez MD, [address] [facility] , [address], [place], [address], 4 12:07:10 endocrino logy referral - PREFERS TO STAY IN [place] 2022 023 milady Oakes MD, [address], [place], [address], 3 11:49:54 Procedures None recorded. Surgeries None recorded. Imaging barium swallow study 2023 024 [place] [facility] (Radiology), [address] [facility] [place], [address], 4 08:02:55 MAMMO, screening , bilateral 2023 024 [place] [facility]), [address] [facility] [place], [address], 4 11:35:05 Medication Orders fluticaso ne propionat e 50 mcg/actua tion nasal spray,felice pension 2023 024 [id number], [address], [place], [address], 4 10:05:29 levothyro xine 112 mcg tablet 2023 024 cm[facility]rosalie [facility], [address], [place], [address], 4 11:11:26 Ventolin HFA 90 mcg/actua tion aerosol inhaler 2023 024 [facility] [address], [place], [address], 4 08:35:57 hydrochlo rothiazid e 25 mg tablet 2023 024 [facility], [address], [place], [address], 4 10:07:06 azithromy christopher 250 mg tablet 2023 024 [email or web address] [facility], [address], [place], [address], 4 13:30:00 hydrochlo rothiazid e 25 mg tablet 2022 023 [facility], [address], [place], [address], 3 10:57:04 levothyro xine 112 mcg tablet 2022 023 cmeliecer [facility], [address], [place], [address], 4 11:11:26 Patient TargetsNo targets recorded. Patient Instructions Encounter Date Encounter Id Patient Instructions Last Modified By Organization Details Last Modified Time 07/19/2023 [id number] A healthy lifestyle: care instructions [email or web address] Not available 07/19/2023 10:48:03 12/13/2023 [id number] A healthy lifestyle: care instructions [email or web address] Not available 12/13/2023 10:03:07 01/03/2024 [id number] A healthy lifestyle: care instructions [email or web address] Not available 01/03/2024 14:53:36 Reason for Referral Endocrinology Referral for M alignant tumor of thyroid gland PREF[place] IN [place] Referring Physician: [facility], Encounter Date: 07/19/2023 Endocrinology Referral for M alignant tumor of thyroid gland Referring Physician: [facility], Encounter Date: 12/13/2023 [facility] t Referral for Screening for malignant neoplasm of cervix Referring Physician: Sun Elder [facility], Encounter Date: 12/13/2023 Results Created Date Observation Date Name Description Value Unit Range Abnormal Flag Note LastModifiedBy Organization Detail LastModifiedTime 07/19/2007/20/2023 TSH+F REE T4 TSH 0.119 uIU/m L 0.450- 4.500 below low normal Not Available [facility] ([facility]) [address], [place], [address], 07/20/2023 08:22:10 07/19/20 23 07/20/2023 TSH+F REE T4 T4,free(dire ct) 2.10 NG/dL 0.82-1 .77 above high normal Not Available [facility] ([facility]) [address] [facility], [place], [address], 07/20/2023 08:22:10 07/19/20 23 07/20/2023 TRIIO DOTHY TERRI E (T3), FREE triiodothyro nine (T3), free 3.1 pg/mL 2.0-4. 4 Not Available [facility] ([facility]) [address] [facility], [place], [address], 07/20/2023 08:22:10 08/09/20 23 08/24/2023 PATHO LOGY REPOR T . Commbruce t Mater ial submi tted: . body - SKIN TAGS, BACK, SHOUL GUSTABO, ABDOM EN, AXILL A RECEI ISABEL IN ONE CONTA INER Not Available [facility] ([facility]) [address] [facility], [place], [address], 08/24/2023 19:08:31 08/09/20 23 08/24/2023 PATHO LOGY REPOR T . 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 TMZ 08/24 0923 Local Not Available [facility] ([facility]) [address] [facility], [place], [address], 08/24/2023 19:08:31 08/09/20 23 08/24/2023 PATHO LOGY REPOR T . Commen t Maci nye d: . Felipe marquez MD, Lapel topat holog ist Not Available [facility] ([facility]) [address] [facility], [place], [address], 08/24/2023 19:08:31 08/09/2008/24/2023 PATHO LOGY REPOR T [...] VO 08/22 0434 Local Not Available [facility] ([facility]) [address] [facility], [place], [address], 08/24/2023 19:08:31 08/09/20 23 08/24/2023 PATHO LOGY REPOR T . Commen t Patho logis t provi ded ICD-1 0: L91.9 , D22.5 Not Available [facility] ([facility]) [address] [facility], [place], [address], 08/24/2023 19:08:31 08/09/20 23 08/24/2023 PATHO HECTOR [place] Doyle[place]ruce [place] CPT . [address] 1 Not Available [facility] ([facility]) [address] [facility], [place], [address], 08/24/2023 19:08:31 12/13/19 24 12/14/2023 TSH+F REE T4 TSH 0.107 uIU/m L 0.450- 4.500 below low normal Not Available [facility] ([facility]) [address] [facility], [place], [address], 12/14/2023 08:34:33 12/13/19 24 12/14/2023 TSH+F REE T4 T4,free(dire ct) 2.06 NG/dL 0.82-1 .77 above high normal Not Available [facility] ([facility]) [address] [facility], [place], [address], 12/14/2023 08:34:33 12/13/19 24 12/14/2023 LIPID PANEL WITH LDL/H DL RATIO cholesterol, total 180 mg/dL 100-19 9 Not Available [facility] ([facility]) [address] [place], [address], 12/14/2023 08:34:34 12/13/19 24 12/14/2023 LIPID PANEL WITH LDL/H DL RATIO triglyceride s 107 mg/dL 0-149 Not Available [facility] ([facility]) [address] [place], [address], 12/14/2023 08:34:34 12/13/19 24 12/14/2023 LIPID PANEL WITH LDL/H DL RATIO HDL cholesterol 44 mg/dL >39 Not Available [facility]) [address] [place], [address], 12/14/2023 08:34:34 12/13/19 24 12/14/2023 LIPID PANEL WITH LDL/H DL RATIO VLDL cholesterol antonia 19 mg/dL 5-40 Not Available [facility] ([facility]) [address] [place], [address], 12/14/2023 08:34:34 12/13/19 24 12/14/2023 LIPID PANEL WITH LDL/H DL RATIO LDL chol calc ([facility]) 117 mg/dL 0-99 above high normal Not Available [facility] ([facility]) [address] [facility], [place], [address], 12/14/2023 08:34:34 12/13/19 24 12/14/2023 LIPID PANEL WITH LDL/H DL RATIO LDL/HDL ratio 2.7 ratio 0.0-3. 2 LDL/H DL Ratio Men Women 1/2 Avg.R isk 1.0 1.5 Avg.R isk 3.6 3.2 2X Avg.R isk 6.2 5.0 3X Avg.R isk 8.0 6.1 Not Available [facility] ([facility]) [address] [place], [address], 12/14/2023 08:34:34 12/13/19 24 12/14/2023 COMP. METAB OLIC PANEL (14) glucose 91 mg/dL 70-99 Not Available [facility] ([facility]) [address] [place], [address], 12/14/2023 08:34:34 12/13/19 24 12/14/2023 COMP. METAB OLIC PANEL (14) BUN 13 mg/dL 6-24 Not Available [facility] ([facility]) [address] [place], [address], 12/14/2023 08:34:34 12/13/19 24 12/14/2023 COMP. METAB OLIC PANEL (14) creatinine 0.84 mg/dL 0.57-1 .00 Not Available [facility] ([facility]) [address] [place], [address], 12/14/2023 08:34:34 12/13/19 24 12/14/2023 COMP. METAB OLIC PANEL (14) eGFR 88 mL/mi n/1.7 3 >59 Not Available [facility] ([facility]) [address] [facility], [place], [address], 12/14/2023 08:34:34 12/13/19 24 12/14/2023 COMP. METAB OLIC PANEL (14) BUN/creatini ne ratio 15 9-23 Not Available [facility] ([facility]) [address] [facility], [place], [address], 12/14/2023 08:34:34 12/13/19 24 12/14/2023 COMP. METAB OLIC PANEL (14) sodium 140 mmol/ L 134-14 4 Not Available [facility] ([facility]) [address] [facility], [place], [address], 12/14/2023 08:34:34 12/13/19 24 12/14/2023 COMP. METAB OLIC PANEL (14) potassium 3.7 mmol/ L 3.5-5. 2 Not Available [facility] ([facility]) [address] [facility], [place], [address], 12/14/2023 08:34:34 12/13/19 24 12/14/2023 COMP. METAB OLIC PANEL (14) chloride 99 mmol/ L 96-106 Not Available [facility] ([facility]) [address] [facility], [place], [address], 12/14/2023 08:34:34 12/13/19 24 12/14/2023 COMP. METAB OLIC PANEL (14) carbon dioxide, total 25 mmol/ L 20-29 Not Available [facility] ([facility]) [address] [facility], [place], [address], 12/14/2023 08:34:34 12/13/19 24 12/14/2023 COMP. METAB OLIC PANEL (14) calcium 9.6 mg/dL 8.7-10 .2 Not Available [facility] ([facility]) [address], [place], [address], 12/14/2023 08:34:34 12/13/19 24 12/14/2023 COMP. METAB OLIC PANEL (14) protein, total 7.6 g/dL 6.0-8. 5 Not Available [facility] ([facility]) [address], [place], [address], 12/14/2023 08:34:34 12/13/19 24 12/14/2023 COMP. METAB OLIC PANEL (14) albumin 4.2 g/dL 3.9-4. 9 Not Available [facility] ([facility]) [address], [place], [address], 12/14/2023 08:34:34 12/13/19 24 12/14/2023 COMP. METAB OLIC PANEL (14) globulin, total 3.4 g/dL 1.5-4. 5 Not Available [facility] ([facility]) [address] [place], [address], 12/14/2023 08:34:34 12/13/19 24 12/14/2023 COMP. METAB OLIC PANEL (14) A/G ratio 1.2 1.2-2. 2 Not Available [facility] ([facility]) [address] [place], [address], 12/14/2023 08:34:34 12/13/19 24 12/14/2023 COMP. METAB OLIC PANEL (14) bilirubin, total 0.4 mg/dL 0.0-1. 2 Not Available [facility] ([facility]) [address], [place], [address], 12/14/2023 08:34:34 12/13/19 24 12/14/2023 COMP. METAB OLIC PANEL (14) alkaline phosphatase 95 IU/L 44-121 Not Available [facility] ([facility]) [address] [place], [address], 12/14/2023 08:34:34 12/13/19 24 12/14/2023 COMP. METAB OLIC PANEL (14) AST (SGOT) 14 IU/L 0-40 Not Available [facility] ([facility]) [address] [place], [address], 12/14/2023 08:34:34 12/13/19 24 12/14/2023 COMP. METAB OLIC PANEL (14) ALT (SGPT) 12 IU/L 0-32 Not Available [facility] ([facility]) [address] [place], [address], 12/14/2023 08:34:34 12/13/19 24 12/14/2023 HEMOG LOBIN A1C hemoglobin A1C 5.2 % 4.8-5. 6 Predi abete s: 5.7 - 6.4 Diabe candi: >6.4 Glyce aidan contr ol for adult s with diabe candi: <7.0 Not Available [facility] ([facility]) [address] [place], [address], 12/14/2023 08:34:35 12/13/19 24 12/14/2023 PROGE STERO NE progesterone 2.9 NG/mL Folli cular phase 0.1 - 0.9 Lutea l phase 1.8 - 23.9 Ovula tion phase 0.1 - 12.0 Pregn ant First trime ster 11.0 - 44.3 Secon d trime ster 25.4 - 83.3 Third trime ster 58.7 - 214.0 Postm enopa usal 0.0 - 0.1 Not Available [facility] ([facility]) [address] [place], [address], 12/14/2023 08:34:36 12/13/19 24 12/14/2023 ESTRA DIOL estradiol 101.0 pg/mL Adult Femal e Range Folli cular phase 12.5 - 166.0 Ovula tion phase 85.8 - 498.0 Lutea l phase 43.8 - 211.0 Postm enopa usal <6.0 - 54.7 Pregn yuly 1st trime ster 215.0 - >4300 .0 Vaishali ECLIA metho dolog y Not Available [facility] ([facility]) [address] [facility], [place], [address], 12/14/2023 08:34:36 12/13/19 24 12/14/2023 CBC WITH DIFFE RENTI AL/PL ATELE T WBC 7.6 x10e3 /uL 3.4-10 .8 Not Available [facility] ([facility]) [address] [place], [address], 12/14/2023 08:34:37 12/13/19 24 12/14/2023 CBC WITH DIFFE RENTI AL/PL ATELE T RBC 4.72 x10e6 /uL 3.77-5 .28 Not Available [facility] ([facility]) [address] [place], [address], 12/14/2023 08:34:37 12/13/19 24 12/14/2023 CBC WITH DIFFE RENTI AL/PL ATELE T hemoglobin 13.8 g/dL 11.1-1 5.9 Not Available [facility] ([facility]) [address] [place], [address], 12/14/2023 08:34:37 12/13/19 24 12/14/2023 CBC WITH DIFFE RENTI AL/PL ATELE T hematocrit 40.2 % 34.0-4 6.6 Not Available [facility] ([facility]) [address] [place], [address], 12/14/2023 08:34:37 12/13/19 24 12/14/2023 CBC WITH DIFFE RENTI AL/PL ATELE T MCV 85 fL 79-97 Not Available [facility] ([facility]) [address] [facility], [place], [address], 12/14/2023 08:34:37 12/13/19 24 12/14/2023 CBC WITH DIFFE RENTI AL/PL ATELE T MCH 29.2 pg 26.6-3 3.0 Not Available [facility] ([facility]) [address] [facility], [place], [address], 12/14/2023 08:34:37 12/13/19 24 12/14/2023 CBC WITH DIFFE RENTI AL/PL ATELE T MCHC 34.3 g/dL 31.5-3 5.7 Not Available [facility] ([facility]) [address] [facility], [place], [address], 12/14/2023 08:34:37 12/13/19 24 12/14/2023 CBC WITH DIFFE RENTI AL/PL ATELE T RDW 13.0 % 11.7-1 5.4 Not Available [facility] ([facility]) [address] [facility], [place], [address], 12/14/2023 08:34:37 12/13/19 24 12/14/2023 CBC WITH DIFFE RENTI AL/PL ATELE T platelets 441 x10e3 /uL 150-45 0 Not Available [facility] ([facility]) [address] [facility], [place], [address], 12/14/2023 08:34:37 12/13/19 24 12/14/2023 CBC WITH DIFFE RENTI AL/PL ATELE T neutrophils 65 % notest ab. Not Available [facility] ([facility]) [address] [facility], [place], [address], 12/14/2023 08:34:37 12/13/19 24 12/14/2023 CBC WITH DIFFE RENTI AL/PL ATELE T lymphs 22 % notest ab. Not Available [facility] ([facility]) [address] [facility], [place], [address], 12/14/2023 08:34:37 12/13/19 24 12/14/2023 CBC WITH DIFFE RENTI AL/PL ATELE T monocytes 6 % notest ab. Not Available [facility] ([facility]) [address] [facility], [place], [address], 12/14/2023 08:34:37 12/13/19 24 12/14/2023 CBC WITH DIFFE RENTI AL/PL ATELE T eos 6 % notest ab. Not Available [facility] ([facility]) [address] [facility], [place], [address], 12/14/2023 08:34:37 12/13/19 24 12/14/2023 CBC WITH DIFFE RENTI AL/PL ATELE T basos 1 % notest ab. Not Available [facility] ([facility]) [address] [facility], [place], [address], 12/14/2023 08:34:37 12/13/19 24 12/14/2023 CBC WITH DIFFE RENTI AL/PL ATELE T neutrophils (absolute) 4.9 x10e3 /uL 1.4-7. 0 Not Available [facility] ([facility]) [address] [facility], [place], [address], 12/14/2023 08:34:37 12/13/19 24 12/14/2023 CBC WITH DIFFE RENTI AL/PL ATELE T lymphs (absolute) 1.7 x10e3 /uL 0.7-3. 1 Not Available [facility] ([facility]) [address] [facility], [place], [address], 12/14/2023 08:34:37 12/13/19 24 12/14/2023 CBC WITH DIFFE RENTI AL/PL ATELE T monocytes(ab solute) 0.5 x10e3 /uL 0.1-0. 9 Not Available [facility] ([facility]) [address] [place], [address], 12/14/2023 08:34:37 12/13/19 24 12/14/2023 CBC WITH DIFFE RENTI AL/PL ATELE T eos (absolute) 0.4 x10e3 /uL 0.0-0. 4 Not Available [facility] ([facility]) [address] [facility], [place], [address], 12/14/2023 08:34:37 12/13/19 24 12/14/2023 CBC WITH DIFFE RENTI AL/PL ATELE T baso (absolute) 0.1 x10e3 /uL 0.0-0. 2 Not Available [facility] ([facility]) [address] [place], [address], 12/14/2023 08:34:37 12/13/19 24 12/14/2023 CBC WITH DIFFE RENTI AL/PL ATELE T immature granulocytes 0 % notest ab. Not Available [facility] ([facility]) [address] [place], [address], 12/14/2023 08:34:37 12/13/19 24 12/14/2023 CBC WITH DIFFE RENTI AL/PL ATELE T immature grans (abs) 0.0 x10e3 /uL 0.0-0. 1 Not Available [facility] ([facility]) [address] [place], [address], 12/14/2023 08:34:37 12/13/19 24 12/14/2023 FSH AND LH LH 10.8 mIU/m L Adult Femal e Range Folli cular phase 2.4 - 12.6 Ovula tion phase 14.0 - 95.6 Lutea l phase 1.0 - 11.4 Postm enopa usal 7.7 - 58.5 Not Available [facility] ([facility]) [address] [place], [address], 12/14/2023 08:34:38 12/13/19 24 12/14/2023 FSH AND LH FSH 10.8 mIU/m L Adult Femal e Range Folli cular phase 3.5 - 12.5 Ovula tion phase 4.7 - 21.5 Lutea l phase 1.7 - 7.7 Postm enopa usal 25.8 - 134.8 Not Available [facility] ([facility]) [address] [place], [address], 12/14/2023 08:34:38 01/03/20 24 01/05/2024 IGP, APTIM A HPV, RFX 16/18 ,45 HPV aptima Negati ve negati ve This nucle ic acid ampli ficat ion test detec ts fourt een high- risk HPV types (16,1 8,31, 33,35 ,39,4 5,51, 52,56 ,58,5 9,66, 68) witho ut diffe renti ation . Not Available [facility] ([facility]) [address] [facility], [place], [address], 01/08/2024 11:10:32 01/03/20 24 01/08/2024 IGP, APTIM A HPV, RFX 16/18 ,45 diagnosis: Commen t NEGAT ERLINDA FOR INTRA EPITH ELIAL LESIO N OR MALIG YULIA . THIS SPECI MEN WAS RESCR EENED PART OF OUR QUALI TY CONTR OL PROGR AM. Not Available [facility] ([facility]) [address] [facility], [place], [address], 01/08/2024 11:10:32 01/03/20 24 01/08/2024 IGP, APTIM A HPV, RFX 16/18 ,45 specimen adequacy: Commen t Satis facto ry for evalu ation . Endoc ervic al and/o r squam ous metap lasti c cells (endo cervi antonia compo nent) are prese nt. Not Available [facility] ([facility]) [address] [place], [address], 01/08/2024 11:10:32 01/03/20 24 01/08/2024 IGP, APTIM A HPV, RFX 16/18 ,45 clinician provided ICD10: Arash martinez Z01.4 19 Not Available [facility] ([facility]) [address] [place], [address], 01/08/2024 11:10:32 01/03/20 24 01/08/2024 IGP, APTIM A HPV, RFX 16/18 ,45 performed by: Arash resendiz, Cytot echno logis t (ASCP ) Not Available [facility] ([facility]) [address] [place], [address], 01/08/2024 11:10:32 01/03/20 24 01/08/2024 IGP, APTIM A HPV, RFX 16/18 ,45 QC reviewed by: Arash schultz, Cytot echno logis t (ASCP ) Not Available [facility] ([facility]) [address] [place], [address], 01/08/2024 11:10:32 01/03/20 24 01/08/2024 IGP, APTIM A HPV, RFX 16/18 ,45 . . Not Available [facility] ([facility]) [address] [place], [address], 01/08/2024 11:10:32 01/03/20 24 01/08/2024 IGP, APTIM [...] ts do occur . Not Available [facility] ([facility]) [address] [place], [address], 01/08/2024 11:10:32 01/03/20 24 01/08/2024 IGP, APTIM A HPV, RFX 16/18 ,45 test methodology: Commen t This liqui d based ThinP rep(R ) pap test was darline palumbo with the use of an image guide zoran rose Not Available [facility] ([facility]) [address] [place], [address], 01/08/2024 11:10:32 01/03/20 24 01/08/2024 IGP, APTIM A HPV, RFX 16/18 ,45 HPV genotype reflex Commen t Crite tomeka not met, HPV Genot ype not perfo rmed. Not Available [facility] ([facility]) [address] [place], [address], 01/08/2024 11:10:32 05/29/20 24 05/30/2024 TSH+F REE T4 TSH 0.222 uIU/m L 0.450- 4.500 below low normal Not Available [facility] ([facility]) [address] [place], [address], 05/30/2024 12:16:57 05/29/20 24 05/30/2024 TSH+F REE T4 T4,free(dire ct) 2.04 NG/dL 0.82-1 .77 above high normal Not Available [facility] ([facility]) [address] [place], [address], 05/30/2024 12:16:57 05/29/20 24 05/30/2024 TRIIO DOTHY TERRI E (T3), FREE triiodothyro nine (T3), free 2.8 pg/mL 2.0-4. 4 Not Available [facility] ([facility]) [address] [place], [address], 05/30/2024 12:16:58 02/02/20 24 01/31/2024 US, thyro id No observ ation record ed. [facility] [address] [facility] , [place], [address], 02/05/2024 14:51:52 11/26/19 25 11/23/2024 US, thyro id No observ ation record ed. [facility] [address], [place], [address], 11/26/2024 10:53:29 12/05/19 25 12/04/2024 CT, neck, soft tissu e, w/ contr ast No observ ation record ed. [facility] [address], [place], [address], 12/04/2024 21:39:29 Result Notes None recorded. Problems Name Problem SNOMED Code Status Onset Date Resolution Date Notes Provider Name and Address Organization Details Recorded Time Asthma 262021521 Active 2020 NATALY SCHMIDT Attn: Mike leal,[address] [facility], [place], [address], [place] [facility] 2 10:20:06 Hypothyroidism 32127319 Active 2020 NATALY SCHMIDT Attn: Poppyjocelin g,[address] [facility], [place], [address], [place] [facility] 2 10:20:04 Malignant tumor of thyroid gland 990412614 Active 2020 2014 at [facility]. NATALY SCHMIDT Attn: Mike g,[address] [facility], [place], [address], [place] [facility] 2 10:20:02 Essential hypertension 17926549 Active 2021 NATALY SCHMIDT Attn: Mike g,[address] [facility], [place], [address], [place] [facility] 2 10:40:36 Problem Notes None recorded. Procedures Surgical History Date Name Laterality Status Provider Name and Address Organization Details Recorded Time 01/03/20 24 Date of Last Pap Smear completed Kaci Andersen RN [facility] 01/09/2024 16:51:28 08/28/19 04 loop electrosurgical excision procedure completed ALEXANDER Lopez Attn: Accounting, [address] [facility], [place], [address], [place] [facility] 01/03/2024 14:52:28 Tubal Ligation completed Shayna Duran [facility] 01/03/2024 13:31:02 Endometrial Ablation completed Shayna Duran [facility] 01/03/2024 13:31:11 Imaging Results Imaging Date Name Status LastModified by Organiz ation Details LastModified Time 01/31/2024 US, thyroid completed [address], [place], [address], 02/05/2024 14:51:52 11/23/2024 US, thyroid completed [facility] [address], [place], [address], 11/26/2024 10:53:29 12/04/2024 CT, neck, soft tissue, w/ contrast completed [facility] [address], [place], [address], 12/04/2024 21:39:29 Procedure Notes None recorded. Medical Equipment None Reported. Allergies Allergen ID Allergen Name Allergen Category Reaction Reaction Severity Criticality Documentation Date Start Date Code Code System Note Provider Name and Address Organization Details Recorded Time 370562 amoxicill in medicatio n rash Not available Not available 10/02/2020 723 RxNorm Not Available Not Available Not Available 934475 Bactrim medicatio n hives severe Not available 09/14/2021 67450 9 RxNorm Not Available Not Available Not [...] Updated DateTime 3 173.99 cm 37.9 kg/m2 457715. 57 g 100 % 100 % 98 /min 16 /min 122 mm[Hg] 80 mm[Hg] Samantha Miller MA [facility] 3 10:38:57 Date Recorded Body height Body mass index (BMI) Body weight Oxygen saturation Oxygen saturation in Arterial blood by Pulse oximetry Heart rate Systolic blood pressure Diastolic blood pressure Provider Name and Address Organization Details Last Updated DateTime 3 173.99 cm 37.9 kg/m2 204429. 87 g 96 % 96 % 83 /min 125 mm[Hg] 85 mm[Hg] Brandee Brizuela MA [facility] 3 09:48:26 Date Recorded Respiratory rate Provider Name a oh Address Organization Details Last Updated DateTime 08/09/2023 18 /min NATALY SCHMIDT Attn: [place], [address], [facility] 08/09/2023 16:58:48 Date Recorded Body height Body mass index (BMI) Body weight Oxygen saturation Oxygen saturation in Arterial blood by Pulse oximetry Heart rate Systolic blood pressure Diastolic blood pressure Provider Name and Address Organization Details Last Updated DateTime 4 173.99 cm 38.3 kg/m2 221767. 85 g 99 % 99 % 106 /min 135 mm[Hg] 85 mm[Hg] Brandee Brizuela MA [facility] 4 09:04:26 Date Recorded Respiratory rate Body temperature Heart rate Provider Name and Address Organization Details Last Updated DateTime 12/13/2023 18 /min 98.7 [degF] 90 /min NATALY SCHMIDT Attn: Accounting, [address] [place], [address], [place] 12/14/2023 08:37:43 Date Recorded Body height Body mass index (BMI) Body weight Systolic blood pressure Diastolic blood pressure Provider Name and Address Organization Details Last Updated DateTime 01/03/2024 173.99 cm 38.4 kg/m2 725849.0 8 g 130 mm[Hg] 84 mm[Hg] MYLES Ramirez [facility] SI 13:48:08 Date Recorded Body height Body mass index (BMI) Body weight Oxygen saturation Oxygen saturation in Arterial blood by Pulse oximetry Heart rate Systolic blood pressure Diastolic blood pressure Provider Name and Address Organization Details Last Updated DateTime 173.99 cm 39.6 kg/m2 378402. 49 g 99 % 99 % 92 /min 129 mm[Hg] 85 mm[Hg] Brandee Brizuela MA [facility] SI 09:14:13 Date Recorded Respiratory rate Provider Name a oh Address Organization Details Last Updated DateTime 05/29/2024 18 /min NATALY SCHMIDT Attn: Accounting,[address] [place], [address], [place] 05/29/2024 09:29:15 Social History Question Answer Notes LastModified by Organizat ion Details LastModified Time Tobacco Smoking Status Never Smoker Brandee Brizuela MA [facility], [facility] 10/02/2020 10:34:10 Do You Have An Advance [...] Anxious, Or Unable To Sleep At Night)? [id number] Information not available 09/14/2021 Do You Use [...] High Blood Pressure N Atrial Fibrillation N Kidney or Bladder Problems N Thyroid Problems Y GI Problems N Depression N COPD N Blood Clots N Skin Problems N Anemia N Heart Attack ([place]) N Anxiety Disorder Y Diabetes N Muscle, [...] Influenza, split virus, quadrivalent, preservative 8 completed TAM[place], [place] [facility] 05/29/2024 09:02:46 Influenza, split virus, trivalent, PF 4 completed NATALY SCHMIDT Attn: Accounting,[address] [place], [address], [place] [facility] 05/29/2024 10:40:21 Past Encounters Encounter ID Performer Location Encounter Start Date Encounter Closed Date Diagnosis/Indication Diagnosis SNOMED-CT Code Diagnosis ICD10 Code Diagnosis Note [id number] NATALY RODRIGUEZ [facility] [address] [place] [address] 10/02/2020 08:05:35 10/02/2020 11:53:32 Depressive disorder 01520001 F32.9 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 [...] with questions Malignant tumor of thyroid gland 011297230 C73 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 She has thryoid surgery and has been following with [facility] endocrinol ogandrew. She has had trouble getting into [facility] due to COVID. Last US was two years ago and was normal. Has not has TSH checked in a long time. She needs new endocrinol ogy in the area as she has trouble getting to [facility]. - records- endo- TSH Asthma 192523267 J45.90 9 Patient diagnosed with asthma as child. Has not had to use inhaler in a while. She does have inhaler on hand but it is a few years old. Dysphagia 90055560 R13.1 0 Patient started having choking episodes [...] cancer. denies reflux or heart burn. Overweight 591312437 E66 .3 per patient she is overweight . Trouble losing it. [id number] NATALY SCHMIDT [facility] [address] [place] [address] 09/14/2021 10:49:16 09/16/2021 07:26:32 Laryngitis 60426449 J04.0 x3 daysvoice restincrea se fluid intakehumi difier at bedsidehot tea with lemon/josefa ysalt water garglesOTC cough suppressan tf/u with any new or worsening sx Viral syndrome 293508856 B34.9 PCR COVID Depression screening 171 179834 Z13.31 PHQ 10 [id number] NATALY SCHMIDT [facility] [address] [place] [address] 01/12/2022 16:11:34 01/13/2022 11:05:26 Malignant tumor of thyroid gland 633274231 C73 20 lb weight gain x3 monthsno change in diet or activityat tributes to thyroid, will re-check todaytakes 2 tabs of levo 112 mcg and 1 tab on monday Depression screening 171 440016 Z13.31 PHQ 1 Otalgia of left ear 1010 790678 H92.02 x3 wksunknown causefeels like popping and pressure, a/w headachesP Ex- mild dried cerumen adhered to L TM, no tragal/pin na tenderness reassured pttrial debrox ear dropsf/u if symptoms do not improve Elevated blood-pressure reading without diagnosis of hypertension 703188966 R03.0 BP 140/86, 158/100att ributes headaches to ear pressureno other sxf/u in 1 wk for BP check [id number] Brandee Brizuela MA [facility] [address] [place] [address] 01/20/2022 10:11:06 01/21/2022 08:51:18 [id number] NATALY SCHMIDT [facility] [address] [place] [address] 02/02/2022 15:19:49 02/03/2022 14:29:43 Essential hypertension 04728944 I10 02/02/22: BP 132/88c/w HCTZ 25 today 158/1025/1 04/18: BP 140/86, 158/100sta rt HCTZ 25f/u in 1 wk for BP check [id number] NATALY SCHMIDT [facility] [address] [place] [address] 10/18/2022 10:46:41 10/18/2022 11:24:16 Depression screening 143118687 Z13.31 PHQ 0 Screening for malignant neoplasm of cervix 734775565 Z12.[address] Lopes 04/2022, normaltuba l ablation 05/2022, no periods since procedure Screening for malignant neoplasm of breast 295926872 Z12.39 last mammogram 8 yrs agoout of insurance in 1 wk- unable to completef/ u once receive insurance and will order Morbid obesity 837661442 E66.01 due for routine labs Hypothyroidism 46635579 E03.9 re-check today Malignant tumor of thyroid gland 892184212 C73 10/18/22:wa s following with [facility] in 2019will re-refer to endocrine for f/u [...] thryoid surgery and has been following with [facility] endocrinol yoni. She has had trouble getting into appointmen ts due to COVID. Last US was two years ago and was normal. Has not has TSH checked in a long time. Essential hypertension 73662212 I10 10/18/22:BP 124/82c/w HCTZ 25 02/02/22: BP 132/88c/w HCTZ 25 today 158/1025/1 04/18: BP 140/86, 158/100sta rt HCTZ 25f/u in 1 wk for BP check Asthma 523291396 J45.90 9 uses PRN with season changes [id number] NATALY SCHMIDT [facility] [address] [place] [address] 07/19/2023 10:33:17 07/19/2023 11:30:46 Essential hypertension 54823963 I10 07/19/23:B P 122/80c/w HCTZ 25 10/18/22:BP 124/82c/w HCTZ 25 02/02/22: BP 132/88c/w HCTZ 25 today 158/1025/1 04/18: BP 140/86, 158/100sta rt HCTZ 25f/u in 1 wk for BP check Hypothyroidism 11656331 E03.9 07/19/23:t akes 112 mcg BID everyday [...] thyroid STAT Malignant tumor of thyroid gland 385439086 C73 07/19/23:r efer to endocrine, wants to [...] thryoid surgery and has been following with [facility] endocrinol yoni. She has had trouble getting into appointmen ts due to COVID. Last US was two years ago and was normal. Has not has TSH checked in a long time. Depression screening 171 489638 Z13.31 PHQ 0 Screening for malignant neoplasm of cervix 382368566 Z12.[address] Lopes 04/2022, normaltuba l ablation 05/2022, no periods since procedure Screening for malignant neoplasm of breast 031902614 Z12.39 07/19/23:w ants to wait until after her weddingwil l order at f/u appt 10/202309/28/22:las t mammogram 8 yrs agoout of insurance in 1 wk- unable to completef/ u once receive insurance and will order Obesity 374283936 E66.9 lost 20 lbs since 09/2022 Chronic cough 46236084 R 05.3 x1 yroccurs in the morningcou ghs up clear sputumslee ps with mouth open and snoresdeni es GERD sxh/o mild asthmaPEx- nltrial humidifier in bedroomtri al antihistam ine Snoring 57567108 R06.83 will discuss sleep study at f/u visit [id number] NATALY SCHMIDT [facility] [address] [place] [address] 08/09/2023 09:37:00 08/09/2023 10:44:22 Multiple skin tags 363900763 L91.8 skin tag removalPEx - skin tag to R sided bra line, R shoulder, abdomen, and L axillatole rated procedure [facility] [id number] NATALY SCHMIDT [facility] [address] [place] [address] 12/13/2023 08:50:01 12/13/2023 10:03:39 Malignant tumor of thyroid gland 587555825 C73 12/13/23: requesting endocrine referral, refill levo 07/19/23:r efer to endocrine, wants to stay in [place] 10/18/22:wa s following with [facility] in 2019will re-refer to endocrine for f/u [...] thryoid surgery and has been following with [facility] endocrinol ogandrew. She has had trouble getting into appointmen ts due to COVID. Last US was two years ago and was normal. Has not has TSH checked in a long time. Hypothyroidism 70906993 E03.9 12/13/23: continue 112 mcg BID, requesting [...] endocrine and ordered US thyroid STAT Obesity 382120496 E66.9 BMI 38.3discus sed increasing exercise and healthier food options, high protein, low fat diet Screening for malignant neoplasm of breast 281762878 Z12.39 12/13/23: due for mammo 07/19/23:w ants to wait until after her weddingwil l order at f/u appt 10/202309/28/22:suma martinez mammogram 8 yrs agoout of insurance in 1 wk- unable to completef/ u once receive insurance and will order Screening for malignant neoplasm of cervix 137215504 Z12.4 12/13/23: requesting new [employer] HOME WORK[employer] referral completed by Dr. Lopes 04/2022, normaltuba l ablation 05/2022, no periods since procedure Non-menopa usal hot flash 9139774100 33243 R23.2 wants to know if she is going through menopausen ight sweats x1 morequesti ng to check hormones Productive cough -green sputum 605758540 R09.3 x6 daysno relief with OTC medswill treat with abx Nasal congestion 1897391 0 R09.81 no relief with nasal decongesta nt pillstrial flonase nasal spray rx Essential hypertension 07817097 I10 12/13/23BP 135/85c/w HCTZ 25, refill 07/19/23:B P 122/80c/w HCTZ 25 10/18/22:BP 124/82c/w HCTZ 25 02/02/22: BP 132/88c/w HCTZ 25 today 158/1025/1 04/18: BP 140/86, 158/100sta rt HCTZ 25f/u in 1 wk for BP check Asthma 684832911 J45.90 9 uses PRN with season changes Depression screening 171 654426 Z13.31 PHQ 0 [id number] ALEXANDER Lopez 14 OB [address] [facility] [address] [place] [address] 01/03/2024 13:07:50 01/04/2024 16:09:25 Screening mammography 36027992 Z12.31 Patient educated on the importance of annual breast cancer screenings with mammograph y. Patient's pcp already ordered screening mammogram. pt advised to complete mammogram. Routine gy necologic examination done 7743350146 9101 Z01.419 -Educated on the importance of [...] sunscreen. Body mass index 30+ - obesity 958372076 Z68.38 Pt educated on risks and importance of lifestyle modificati ons. Pt reports will continue to follow up with PCP. [id number] NATALY SCHMIDT [facility] [address] [place] [address] 05/29/2024 08:44:10 05/29/2024 09:41:41 Depression screening 968956776 Z13.31 PHQ 0 Dysphagia 24402279 R13.1 0 x2 monthsstre ss inducedocc urs with meats, chicken, bread, tries to swallow and then vomitsno odynophagi aPEx- nlordered barium swallow study Hypothyroidism 29006814 E03.9 05/29/24: US thyroid 01/31/24- thyroidect latha present with no abnormal tissue or lymph node shownhas appt with endocrine Aug4reques ting to re-check thyroid levels today due [...] thyroid STAT Administra tion of influenza vaccine 55007171 Z23 Health Concerns Section Related Observation LastModified by Organization Detai ls LastModified Time None Recorded Concern Status LastModified by Organization Details LastModified Time None Recorded Advance Directives Directive N: Payers Encounter Date Sequence Insurance Name Policy Number Policy Ozuna Covered Member ID Ozuna Member ID Guarantor Name 07/19/2023 1 [facility] (MEDICAID HMO) [id number] [facility] [id number] [facility] 07/19/2023 1 [place] [id number] Sara [facility] [id number] 2 [facility] 08/09/2023 1 FOR[facility]LY [facility] (MEDICAID HMO) [id number] [facility] [id number] [facility] 08/09/2023 1 [place] [id number] Sara [facility] [id number] [facility] 12/13/2023 1 [place] [id number] Sara [facility] [id number] 2 [facility] 01/03/2024 1 [place] [id number] Sara [facility] [id number] 2 [facility] 05/29/2024 1 [place]) [id number] Sara [facility] [id number] 2 [facility] Notes Date Note Type Note Provider [...] Denies SOB. NATALY SCHMIDT Attn: Accounting,[address] [facility], [place], [address], [place] [facility] 07/19/2023 14:02:52 08/09/2023 text/html Pt presents for skin tag removal. NATALY SCHMIDT Attn: Accounting,[address] [facility], [place], [address], [facility] 08/09/2023 16:59:06 12/13/2023 text/html Sara is a [...] due to ablation. She is requesting an senior inspector referral. She reports her gums are receding with minimal bleeding and concerned that it may be due to her hypothyroidism. NATALY SCHMIDT Attn: Accounting[address] [place], [address], [facility] 12/14/2023 08:38:19 01/03/2024 text/html Annual GYNReport ed [...] any complaints. ALEXANDER Lopez Attn: Accounting[address] [place], [address], [facility] 01/03/2024 14:57:06 05/29/2024 text/html Pt presents with [...] Denies odynophagia. NATALY SCHMIDT Attn: Accounting[address] [place], [address], [facility] 05/29/2024 10:56:00 OBGyn Episode Ob Episode Information Episode Created Date Number of Fetuses Patient Bloodtype Patient rh Status Prepregnancy Weight lbs Domestic Partner Domestic Partner Phone Father Name Surveillance Dual Rate Officer Status 10/02/19 21 1 CLOSED Fetus Data First Name Last Name Admitted to NICU Weight (g) Sex Living Outcome Pediatric Complications Fetus ID Race Codes Race Delivery Type [id number] Kole Calculation Initial Kole Date Initial Exam [...] Domestic Partner Domestic Partner Phone Father Name Surveillance Dual Rate Officer Status 10/02/19 21 1 CLOSED Fetus Data First Name Last Name Admitted to NICU Weight (g) Sex Living Outcome Pediatric Complications Fetus ID Race Codes Race Delivery Type [id number] Kole Calculation Initial Kole Date Initial Exam [...] Domestic Partner Domestic Partner Phone Father Name Surveillance Dual Rate Officer Status 10/02/19 21 1 CLOSED Fetus Data First Name Last Name Admitted to NICU Weight (g) Sex Living Outcome Pediatric Complications Fetus ID Race Codes Race Delivery Type [id number] Kole Calculation Initial Kole Date Initial Exam [...] Domestic Partner Domestic Partner Phone Father Name Surveillance Dual Rate Officer Status 10/02/19 21 1 CLOSED Fetus Data First Name Last Name Admitted to NICU Weight (g) Sex Living Outcome Pediatric Complications Fetus ID Race Codes Race Delivery Type 70733 Kole Calculation Initial Kole Date Initial Exam [...]
== END 2024-12-10 13:48 | disposition home or self-care (01) ==
PROVIDERS: PCP Physician Assistant; Visit Provider Internal Medicine
DX: C79.9 Secondary malignant neoplasm of unspecified site (principal); C73 Malignant neoplasm of thyroid gland; R59.0 Localized enlarged lymph nodes
CPT/HCPCS: 78815; A9552

== ENCOUNTER 2024-12-25 12:37 | Outpatient (CLI) | payer BC, SELFPAY ==
--- NOTE | ~2024-12-25 | US_ITS ---
EXAMINATION: US biopsy lymph node DATE: 12/25/2024 15:08 INDICATION: 44-year-old woman with a personal history of thyroid cancer and thyroidectomy with select [place]/superselective right-sided neck dissection (all history is as per patient, no dedicated records f rom the thyroid cancer, treatment or surgery/pathology within the EMR). COMPARISON: Reference is made to prior ultrasound examination of the soft tissues of the head and nec k, as well as CT examination of the neck and chest followed by a PET/CT performed 12/10/2024. TECHNIQUE: The procedure including the risks, benefits, and alternatives was discussed with the patient. Risks discussed included bleeding, nontargeted biopsy and infection. The patient understood the risks and benefits and agreed to proceed. Limited ultrasound of the soft tissues of the neck were performed demonstrating multiple nonpathologi jaycee enlarged lymph nodes within the bilateral cervical chains, submental and submandibular regions. Given the results of recent PET/CT, targeted biopsy of the right jugulodigastric node adjacent to the angle of the mandible was chosen. The skin overlying the right upper neck and mandible was prepped and draped in usual sterile fashion. Anesthetic was administered with 1% lidocaine without epinephrine subcutaneously. An 17 gauge introducer was advanced directly into the lymph node in question. Positioning was confirm ed with continuous ultrasound guidance. An 18-gauge core biopsy device was utilized to obtain multiple specimens for both RPMI and formalin. Once the adequacy of the specimen was confirmed, all devices were removed and a sterile dressing appl ied. The entry site was cleaned and dressed. There were no immediate complications. FINDINGS: Ultrasound images demonstrate the needle in a morphologically suspicious borderline enlarge d lymph node at the right angle of the mandible which on recent PET CT demonstrated an SUV max of 5.1 . IMPRESSION: 1. Technically successful ultrasound-guided core needle biopsy of a morphologically suspicious border line enlarged lymph node at the right angle of the mandible which on recent PET CT demonstrated an MAGALLANES V max of 5.1. Pathology is pending. Reviewed, dictated and finalized at location A. IMPRESSION: 1. Technically successful ultrasound-guided core needle biopsy of a morphologic ally suspicious borderline enlarged lymph node at the right angle of the mandib le which on recent PET CT demonstrated an SUV max of 5.1. Pathology is pending.
--- OUTSIDE RECORDS SUMMARY | 2024-12-25 13:30 | XMS_ITS | Data Portability ---
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 Imaging US, pelvis 2021 022 [address], [address], [place], [address], 18:02:09 US, transvagina l 2021 [address], [address], [place], [address], 18:02:09 Medication Orders progesteron e micronized 200 mg capsule 2021 022 [id number], [address] [place], [address], 11:34:05 Patient TargetsNo targets recorded. Patient InstructionsNo instructions recorded. Reason for Referral None Reported. Results Created Date Observation Date Name Description Value Unit Range Abnormal Flag Note LastModifiedBy Organization Detail LastModifiedTime 03/03/20 22 03/03/2022 CBC W/DIF F WBC 8.1 10'3/ uL 3.6-10 .2 Not Available [facility] [address] [place], [address], 03/08/2022 17:47:33 03/03/20 22 03/03/2022 CBC W/DIF F RBC 4.70 10'6/ uL (based on docume nted legal sex) 4.10-5 .30 Not Available [facility] [address] [place], [address], 03/08/2022 17:47:33 03/03/20 22 03/03/2022 CBC W/DIF F HGB 13.4 g/dL (based on docume nted legal sex) 11.9-1 5.8 Not Available [facility] [address] [place], [address], 03/08/2022 17:47:33 03/03/20 22 03/03/2022 CBC W/DIF F HCT 42.1 % (based on docume nted legal sex) 37.4-4 8.3 Not Available [facility] [address] [place], [address], 03/08/2022 17:47:33 03/03/20 22 03/03/2022 CBC W/DIF F MCV 89.0 fL 82.0-9 9.0 Not Available [facility] [address] [place], [address], 03/08/2022 17:47:33 03/03/20 22 03/03/2022 CBC W/DIF F MCH 28.0 pg 27.0-3 3.0 Not Available [facility] [address] [place], [address], 03/08/2022 17:47:33 03/03/20 22 03/03/2022 CBC W/DIF F MCHC 32.0 g/dL 32.0-3 6.0 Not Available [facility] [address] [place] [address], [address], 03/08/2022 17:47:33 03/03/20 22 03/03/2022 CBC W/DIF F RDW 14.0 % 11.0-1 5.0 Not Available [facility] [address] [place], [address], 03/08/2022 17:47:33 03/03/20 22 03/03/2022 CBC W/DIF F plt 471 10'3/ uL 150-45 0 high Not Available [facility] [address] [place] [address], [address], 03/08/2022 17:47:33 03/03/20 22 03/03/2022 CBC W/DIF F MPV 10.4 fL 9.8-12 .7 Not Available [facility] [address] [place] [address], [address], 03/08/2022 17:47:33 03/03/20 22 03/03/2022 CBC W/DIF F NRBC's 0.00 % 0 Not Available [facility] [address] [place] [address], [address], 03/08/2022 17:47:33 03/03/20 22 03/03/2022 CBC W/DIF F absolute NRBCs 0.0 10'3/ uL 0 Not Available [facility] [address] [place] [address], [address], 03/08/2022 17:47:33 03/03/20 22 03/03/2022 CBC W/DIF F neutrophils 69.0 % 37.0-7 2.0 Not Available [facility] [address] [place] [address], [address], 03/08/2022 17:47:33 03/03/20 22 03/03/2022 CBC W/DIF F lymphocytes 20.0 % 16.0-4 8.0 Not Available [facility] [address] [place] [address], [address], 03/08/2022 17:47:33 03/03/20 22 03/03/2022 CBC W/DIF F monocytes 8.0 % 4.0-14 .0 Not Available [facility] [address] [place] [address], [address], 03/08/2022 17:47:33 03/03/20 22 03/03/2022 CBC W/DIF F eosinophils 2.0 % 0.0-9. 0 Not Available [facility] [address] [place] [address], [address], 03/08/2022 17:47:33 03/03/20 22 03/03/2022 CBC W/DIF F basophils 1.0 % 0.0-2. 0 Not Available [facility] [address] [place] [address], [address], 03/08/2022 17:47:33 03/03/20 22 03/03/2022 CBC W/DIF F immature granulocytes 0.0 % no define d refere nce range Not Available [facility] [address] [place] [address], [address], 03/08/2022 17:47:33 03/03/20 22 03/03/2022 CBC W/DIF F absolute neutrophils 5.6 10'3/ uL 1.1-6. 0 Not Available [facility] [address] [place] [address], [address], 03/08/2022 17:47:33 03/03/20 22 03/03/2022 CBC W/DIF F absolute lymphocytes 1.6 10'3/ uL 0.7-3. 4 Not Available [facility] [address] [place], [address], 03/08/2022 17:47:33 03/03/20 22 03/03/2022 CBC W/DIF F absolute monocytes 0.6 10'3/ uL 0.3-1. 0 Not Available [facility] [address] [place], [address], 03/08/2022 17:47:33 03/03/20 22 03/03/2022 CBC W/DIF F absolute eosinophils 0.1 10'3/ uL 0.0-0. 6 Not Available [facility] [address] [place], [address], 03/08/2022 17:47:33 03/03/20 22 03/03/2022 CBC W/DIF F absolute basophils 0.1 10'3/ uL 0.0-0. 1 Not Available [facility] [address] [place], [address], 03/08/2022 17:47:33 03/03/20 22 03/03/2022 CBC W/DIF [...] ts are expec donte. Not Available [facility] [address] [place], [address], 03/08/2022 17:47:33 03/03/20 22 03/03/2022 HEMOG LOBIN [...] >8.0% Actio n sugge sted Not Available [facility] [address] [place], [address], 03/08/2022 17:47:34 03/03/20 22 03/03/2022 DHEA SULFA TE DHEA-sulfate 172 ug/dL Femal e Range s Age(y ) Range (ug/d L) 10-15 34-28 0 15-20 65-36 8 20-25 148-4 07 25-35 99-34 0 35-45 61-33 7 45-55 35-25 6 55-65 19-20 5 65-75 9-246 > 75 12-15 4 Not Available [facility] [address] [place], [address], 03/08/2022 17:47:34 03/03/20 22 03/03/2022 PROGE STERO [...] Trime ster5 8.70- 214.0 0 Not Available [facility] [address] [place], [address], 03/08/2022 17:47:35 03/03/20 22 03/03/2022 PROLA CTIN prolactin, total 18.30 NG/mL 4.79-2 3.30 This assay was perfo rmed using [employer] ratio n reage nts and test kits. Value s obtai deepali with other assay metho ds or kits canno t be used inter [facility] . Not Available [facility] [address] [place], [address], 03/08/2022 17:47:35 03/03/20 22 03/03/2022 FSH, LH, ESTRA DIOL estradiol 370.0 pg/mL This assay was perfo rmed using [employer] reage nts and test kits. Value s obtai deepali with other assay metho ds or kits canno t be used inter [facility] . Femal e Estra diol Range s: Folli cular phase 12.4- 233 pg/mL Ovula tion phase 41.0- 398 pg/mL Lutea l phase 22.3- 341 pg/mL Postm enopa usal< 5-138 pg/mL Healt hy Pregn ant Women 1st Trime ster1 54-32 43 pg/mL 2nd Trime ster1 561-2 1280 pg/mL 3rd Trime ster8 525-> 27280 pg/mL Not Available [facility] [address] [place], [address], 03/08/2022 17:47:35 03/03/20 22 03/03/2022 FSH, LH, ESTRA DIOL FSH 5.4 mIU/m L This assay was perfo rmed using [employer] reage nts and test kits. Value s obtai deepali with other assay metho ds or kits canno t be used inter [facility] . Femal es Folli cular : 3.5-1 2.5 mIU/m L Ovula tion: 4.7-2 1.5 mIU/m L Lutea l: 1.7-7 .7 mIU/m L Postm enopa use: 25.8- 134.8 mIU/m L Not Available [facility] [address] [place], [address], 03/08/2022 17:47:35 03/03/20 22 03/03/2022 FSH, LH, [...] [facility] [address] [place], [address], 03/08/2022 17:47:35 03/03/20 22 03/03/2022 HUMAN SEX HORMO NE JUANY NG GLOBU ODALYS sex hormone binding globulin 69.5 nmole s/L 18.2-1 35.5 Not Available [facility] [address] [place], [address], 03/08/2022 17:47:36 03/03/20 22 03/03/2022 TSH, REFLE X FREE T4 TSH 0.64 uIU/m L 0.30-5 .33 Not Available [facility] [address] [place], [address], 03/08/2022 17:47:36 03/03/20 22 03/03/2022 TESTO STERO NE, FREE( DIALY SIS) AND TOTAL (LC/M S/MS) testosterone , total 50 NG/dL 2-45 high For addit ional infor jose miguel braxton e refer to http: //matias wiggins.que stdia gnost ics.c om/fa q/Tot [facility] (This link is being provi ded for infor matio nal/ educa grecia l purpo ses only. ) This test was devel oped and its godfrey tical perfo rmanc e charles cteri stics have been deter mined by [employer]. It has not been clear ed or appro roseline by the FDA. This assay has been valid ated pursu ant to the CLIA regul ation s and is used for clini javed purpo ses. Not Available [facility] [address] [place], [address], 03/08/2022 17:47:37 03/03/2003/03/2022 TESTO STERO NE, FREE( DIALY SIS) AND TOTAL (LC/M S/MS) testosterone , free 3.5 pg/mL 0.1-6. 4 This test was devel oped and its godfrey tical perfo rmanc e charles cteri stics have been deter mined by [employer]. It has not been clear ed or appro roseline by the FDA. This assay has been valid ated pursu ant to the CLIA regul ation s and is used for clini javed purpo ses. Perfo rming Organ izati on Infor matio n: Site ID: [id number] Name: [facility]-Ravi jacky Andradeen marshal Addre ss: [id number] [place] [address] Direc tor: Davis perkins M.D. Not Available [facility] [address] [place], [address], 03/08/2022 17:47:37 04/18/20 22 04/18/2022 IMAGE GUIDE [...] as clini jaycee warra nted. Not Available [facility] [address], [place], [address], 04/22/2022 21:42:14 03/17/20 22 03/17/2022 US, pelvi s No observ ation record ed. [place] [id number] [facility] [address], [place], [address], 03/17/2022 16:07:06 03/17/20 22 03/17/2022 US, trans vagin al No observ ation record ed. [place] [address] [facility] [address], [place], [address], 03/17/2022 16:07:15 03/17/20 22 03/17/2022 US, pelvi s No observ ation record ed. [email or web address], [place], [address], 03/17/2022 20:01:11 03/17/20 22 03/17/2022 US, pelvi s No observ ation record ed. [email or web address], [place], [address], 03/17/2022 20:01:11 Result Notes None recorded. Procedures Surgical History Date Name Laterality Status Provider Name and Address Organization Details Recorded Time 2 HYSTEROSCOPY, WITH ENDOMETRIAL ABLATION (SURG) completed [facility] 06/13/2022 11:26:04 2 HYSTEROSCOPY, WITH ENDOMETRIAL ABLATION (SURG) completed [facility] 06/06/2022 11:27:48 [address] Endomet[address] [facility] 06/09/2022 09:47:01 5 Date of Last Pap Smear completed [facility] 03/03/2022 09:44:[address] [facility] 03/03/2022 09:44:49 8 Caesarean Section completed [facility] 06/09/2022 09:47:01 Ovarian Cystectomy completed [facility] 03/03/2022 09:45:00 Tubal Ligation completed [facility] 03/03/2022 09:45:00 Thyroid Surgery completed [facility] 03/03/2022 09:45:[address] [facility] 03/03/2022 09:45:00 Caesarean Section completed [facility] 03/03/2022 09:45:[address] [facility] 06/09/2022 09:47:01 Dilation and Curettage completed [facility] 06/09/2022 09:47:01 Imaging Results Imaging Date Name Status LastModified by Organization Details LastModified Time 03/17/2022 US, pelvis completed [email or web address] [place] [address], [place], [address], 03/17/2022 16:07:06 03/17/2022 US, transvaginal completed [email or web address] [facility] [address], [place], [address], 03/17/2022 16:07:15 03/17/2022 US, pelvis completed [email or web address], [place], [address], 03/17/2022 20:01:11 03/17/2022 US, pelvis completed [email or web address], [place], [address], 03/17/2022 20:01:11 Procedure Notes None recorded. Medical Equipment None Reported. Allergies Allergen ID Allergen Name Allergen Category Reaction Reaction Severity Criticality Documentation Date Start Date Code Code System Note Provider Name and Address Organization Details Recorded Time 73154 amoxicill in medicatio n rash moderate Not available 03/03/2022 723 RxNorm Makeda Maggy [facility] 2 09:44:38 66417 Bactrim medicatio n hives severe Not available 03/03/2022 85502 9 RxNorm Makeda [facility] 2 09:44:38 Medications Name Sig Start [...] Updated DateTime 03/17/2022 173.99 cm 41.5 kg/m2 832024.0 9 g 124 mm[Hg] 91 mm[Hg] [facility] 2 14:33:58 Date Recorded Body height Body mass index (BMI) Body weight Systolic blood pressure Diastolic blood pressure Provider Name and Address Organization Details Last Updated DateTime 03/28/2022 173.99 cm 41.5 kg/m2 202481.0 9 g 137 mm[Hg] 96 mm[Hg] [facility] 2 10:22:05 Date Recorded Body height Body mass index (BMI) Body weight Systolic blood pressure Diastolic blood pressure Provider Name and Address Organization Details Last Updated DateTime 04/18/2022 173.99 cm 41.2 kg/m2 037080.9 g 125 mm[Hg] 91 mm[Hg] [facility] 2 10:47:28 Date Recorded Body height Body mass index (BMI) Body weight Systolic blood pressure Diastolic blood pressure Provider Name and Address Organization Details Last Updated DateTime 06/09/2022 173.99 cm 41.5 kg/m2 188692.0 9 g 123 mm[Hg] 90 mm[Hg] [facility] 2 09:46:39 Social History Question Answer Notes LastModified by Organizat ion Details LastModified Time Tobacco Smoking Status Never Smoker Ana Maria Diego [facility] 06/09/2022 09:30:06 Do You Have An [...] Or The Highest Degree You Have Received? 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 [id number] Information not available 03/03/2022 Do You Use [...] SNOMED-CT Code Diagnosis ICD10 Code Diagnosis Note [id number] Kraig Lopes MD [place] [address] [address] 03/03/2022 09:11:43 03/03/2022 10:26:07 Abnormal uterine bleeding 0299958566 9100 N93.9 [id number] Kraig Lopes MD [place] [address] [address] 03/17/2022 13:43:48 03/17/2022 14:34:56 Pain in pelvis 61584611 R10.2 [id number] Kraig Lopes MD [place] [address] [address] 03/17/2022 13:45:03 03/17/2022 16:02:12 Menorrhagia 435466857 N92.0 Dysmenorrhea 278250820 N 94.6 This patient is a 41-year-ol [...] l ablation if her heavy bleeding persist. [id number] Kraig Lopes MD [place] [address] [address] 03/28/2022 09:54:21 03/28/2022 11:23:54 Menorrhagia 987209924 N92.0 this patient is a 41-year-ol d female with severe menorrhagi a. We have agreed to perform endometria l ablation. She understand s the risks, benefits, and alternativ es. She has completed the informed consent process and is ready to proceed. [id number] Kraig Lopes MD [place] [address] [address] 04/18/2022 10:22:55 04/18/2022 11:57:47 Abnormal uterine bleeding 0085579951 9100 N93.9 Gynecologi c examination 71719267 Z01.419 Annual gynecologi javed exam performed. Patient [...] email. Mammogram - ordered Pap - today [id number] Kraig Lopes MD [place] [address] [address] 06/09/2022 09:29:25 06/09/2022 10:43:50 Menorrhagia 461039842 N92.0 this patient is a 41-year-ol d [...] Ozuna Member ID Guarantor Name 03/17/2022 1 [facility] (MEDICAID HMO) [id number] Sara Yohannes [id number] Sara Yohannes 03/28/2022 1 [facility] (MEDICAID HMO) [id number] Sara Yohannes [id number] Sara Yohannes 04/18/2022 1 [facility] (MEDICAID HMO) [id number] Sara Yohannes [id number] Sara Yohannes 06/09/2022 1 [facility] (MEDICAID HMO) [id number] Sara Yohannes [id number] Sara Yohannes Notes Date Note Type Note [...] treatment options. We spent over 20 minutes [id number]. More than 50% was counseling. She leans towards endometrial ablation if her heavy bleeding persist. Kraig Lopes MD [address], [place], [address], [facility] 03/17/2022 15:11:38 03/28/2022 text/html This patient [...] ablation. We spent more than 15 minutes [id number]. More than 50% was counseling. I explained [...] infection. Kraig Lopes MD [address], [place], [address], [facility] 03/28/2022 11:09:14 04/18/2022 text/html Annual GYNReport [...] exercise Kraig Lopes MD [address], [place], [address], [facility] 04/18/2022 11:41:25 06/09/2022 text/html this patient is a 41-year-old female presents for follow-up on menorrhagia. She underwent endometrial ablation. She has no abnormal symptoms. She is recovering normally it sounds. Will observe for bleeding. Kraig Lopes MD [address], [place], [address], [facility] 06/09/2022 10:19:05 OBGyn Episode No OBEpisode recorded.
--- OUTSIDE RECORDS SUMMARY | 2024-12-25 13:30 | XMS_ITS | Data Portability ---
Author Organization [facility] Address [address] [place] [address] Care Team Providers Care Thread Machine Operator Name Role Phone SUN ELDER Primary Care Provider [phone] Assessment Encounter Date Assessment Date Assessment LastModified by Organization Details LastModified Time 07/19/2023 07/19/2023 F/u in 4 mo for routine labs. [email or web address] Not available 07/19/2023 13:06:14 12/13/2023 12/13/2023 Sections of the HPI, exam and assessment completed by NATALY Cortez student and have been reviewed by me. I agree with the exam findings, assessment and plan except where specifically documented or amended. -Sun Elder, [facility], PAUmeshC [email or web address] Not available 12/13/2023 15:01:31 Plan of Treatment Reminders Order Date Submit Date Provider Last Modified By Organization Details Last Modified Time Details Appointments None recorded. Lab TSH + free T4, serum 2023 [facility], [address], [address], [place], [address], 12:16:57 T3, free, serum or plasma 2023 024 [facility], [address], [address], [place], [address], 4 12:16:58 cytology report, thin prep, smear or scraping, cervical or vaginal - brush and broom 2023 024 [facility], [address], [address], [place], [address], 4 11:10:32 lh + FSH, serum 2023 024 [facility], [address], [address], [place], [address], 4 08:34:38 estradiol , serum 2023 024 [facility], [address], [address], [place], [address], 4 08:34:36 progester one, serum 2023 024 [facility], [address] [place] [address], [address], [place], [address], 4 08:34:36 CMP, serum or plasma 2023 024 [facility], [address], [place], [address], 4 08:34:34 lipid panel, serum 2023 024 [facility], [address], [place], [address], 4 08:34:34 CBC w/ auto diff 2023 024 [facility], [address], [place], [address], 4 08:34:37 HbA1c (hemoglob in A1c), blood 2023 024 [facility], [address], [place], [address], 4 08:34:35 TSH + free T4, serum 2023 024 [facility], [address], [place], [address], 4 08:34:33 pathology study - SKIN TAGS TO BACK, SHOULDER, ABDOMEN, AND AXILLA 2022 023 [facility], [facility], [address], [place], [address], 3 19:08:31 TSH + free T4, serum 2022 023 [facility], [address] [place] [address], [address], [place], [address], 3 08:22:10 T3, free, serum or plasma 2022 023 [facility], [address] [place] [address], [address], [place], [address], 3 08:22:10 Referral endocrino logy referral [address] - Endocrinology , [address], [place], [address], 4 08:01:23 obstetric judy and gynecolog ist referral 2023 024 ketan Márquez MD, [address] [facility] , [address], [place], [address], 4 12:07:10 endocrino logy referral - PREFERS TO STAY IN [place] 2022 023 milady Oakes MD, [address], [place], [address], 3 11:49:54 Procedures None recorded. Surgeries None recorded. Imaging barium swallow study 2023 024 [email or web address] [place] (Radiology), [address] [facility] [place], [address], 4 08:02:55 MAMMO, screening , bilateral 2023 024 [place] ([facility]), [address] [facility] [place], [address], 4 11:35:05 Medication Orders fluticaso ne propionat e 50 mcg/actua tion nasal spray,felice pension 2023 024 [id number], [address], [place], [address], 4 10:05:29 levothyro xine 112 mcg tablet 2023 024 [email or web address] [id number], [address], [place], [address], 4 11:11:26 Ventolin HFA 90 mcg/actua tion aerosol inhaler 2023 024 [facility] [address], [place], [address], 4 08:35:57 hydrochlo rothiazid e 25 mg tablet 2023 024 [id number], [address], [place], [address], 4 10:07:06 azithromy christopher 250 mg tablet 2023 024 [email or web address] [facility], [address], [place], [address], 4 13:30:00 hydrochlo rothiazid e 25 mg tablet 2022 023 [facility], [address], [place], [address], 3 10:57:04 levothyro xine 112 mcg tablet 2022 023 cmeliecer [id number], [address], [place], [address], 4 11:11:26 Patient TargetsNo targets recorded. Patient Instructions Encounter Date Encounter Id Patient Instructions Last Modified By Organization Details Last Modified Time 07/19/2023 [id number] A healthy lifestyle: care instructions [email or web address] Not available 07/19/2023 10:48:03 12/13/2023 [id number] A healthy lifestyle: care instructions [email or web address] Not available 12/13/2023 10:03:07 01/03/2024 [id number] A healthy lifestyle: care instructions [email or web address] Not available 01/03/2024 14:53:36 Reason for Referral Endocrinology Referral for M alignant tumor of thyroid gland PREF[place] TO [place] IN [place] Referring Physician: [facility], Encounter Date: 07/19/2023 Endocrinology Referral for M alignant tumor of thyroid gland Referring Physician: [facility], Encounter Date: 12/13/2023 Top Bottom Attaching Machine Operator And Gynecologis t Referral for Screening for malignant neoplasm of cervix Referring Physician: Sun Elder [facility], Encounter Date: 12/13/2023 Results Created Date Observation Date Name Description Value Unit Range Abnormal Flag Note LastModifiedBy Organization Detail LastModifiedTime 07/19/2007/20/2023 TSH+F REE T4 TSH 0.119 uIU/m L 0.450- 4.500 below low normal Not Available [facility] ([facility]) [address], [place], [address], 07/20/2023 08:22:10 07/19/20 23 07/20/2023 TSH+F REE T4 T4,free(dire ct) 2.10 NG/dL 0.82-1 .77 above high normal Not Available [facility] ([facility]) [address], [place], [address], 07/20/2023 08:22:10 07/19/20 23 07/20/2023 TRIIO DOTHY TERRI E (T3), FREE triiodothyro nine (T3), free 3.1 pg/mL 2.0-4. 4 Not Available [facility] ([facility]) [address], [place], [address], 07/20/2023 08:22:10 08/09/20 23 08/24/2023 PATHO LOGY REPOR T . Commbruce t Mater ial submi tted: . body - SKIN TAGS, BACK, SHOUL GUSTABO, ABDOM EN, AXILL A RECEI ISABEL IN ONE CONTA INER Not Available [facility] ([facility]) [address], [place], [address], 08/24/2023 19:08:31 08/09/20 23 08/24/2023 PATHO LOGY REPOR T . 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 TMZ 08/24 0923 Local Not Available [facility] ([facility]) [address], [place], [address], 08/24/2023 19:08:31 08/09/20 23 08/24/2023 PATHO LOGY REPOR T . Commen t Maci nye d: . Felipe marquez MD, [place] topat holog ist Not Available [facility] ([facility]) [address] [facility] [address], [place], [address], 08/24/2023 19:08:31 08/09/2008/24/2023 PATHO LOGY REPOR T [...] VO 08/22 0434 Local Not Available [facility] ([facility]) [address], [place], [address], 08/24/2023 19:08:31 08/09/20 23 08/24/2023 PATHO LOGY REPOR T . Commen t Patho logis t provi ded ICD-1 0: L91.9 , D22.5 Not Available [facility] ([facility]) [address], [place], [address], 08/24/2023 19:08:31 08/09/20 23 08/24/2023 PATHO HECTOR York Doylebruce [place] CPT . [address] 1 Not Available [facility] ([facility]) [address], [place], [address], 08/24/2023 19:08:31 12/13/19 24 12/14/2023 TSH+F REE T4 TSH 0.107 uIU/m L 0.450- 4.500 below low normal Not Available [facility] ([facility]) [address], [place], [address], 12/14/2023 08:34:33 12/13/19 24 12/14/2023 TSH+F REE T4 T4,free(dire ct) 2.06 NG/dL 0.82-1 .77 above high normal Not Available [facility] ([facility]) [address], [place], [address], 12/14/2023 08:34:33 12/13/19 24 12/14/2023 LIPID PANEL WITH LDL/H DL RATIO cholesterol, total 180 mg/dL 100-19 9 Not Available [facility] ([facility]) [address] [place], [address], 12/14/2023 08:34:34 12/13/19 24 12/14/2023 LIPID PANEL WITH LDL/H DL RATIO triglyceride s 107 mg/dL 0-149 Not Available [facility]) [address] [place], [address], 12/14/2023 08:34:34 12/13/19 24 12/14/2023 LIPID PANEL WITH LDL/H DL RATIO HDL cholesterol 44 mg/dL >39 Not Available [facility]) [address] [place], [address], 12/14/2023 08:34:34 12/13/19 24 12/14/2023 LIPID PANEL WITH LDL/H DL RATIO VLDL cholesterol antonia 19 mg/dL 5-40 Not Available [facility]) [address] [place], [address], 12/14/2023 08:34:34 12/13/19 24 12/14/2023 LIPID PANEL WITH LDL/H DL RATIO LDL chol calc ([facility]) 117 mg/dL 0-99 above high normal Not Available [facility] ([facility]) [address], [place], [address], 12/14/2023 08:34:34 12/13/19 24 12/14/2023 LIPID PANEL WITH LDL/H DL RATIO LDL/HDL ratio 2.7 ratio 0.0-3. 2 LDL/H DL Ratio Men Women 1/2 Avg.R isk 1.0 1.5 Avg.R isk 3.6 3.2 2X Avg.R isk 6.2 5.0 3X Avg.R isk 8.0 6.1 Not Available [facility] ([facility]) [address] [place], [address], 12/14/2023 08:34:34 12/13/19 24 12/14/2023 COMP. METAB OLIC PANEL (14) glucose 91 mg/dL 70-99 Not Available [facility] ([facility]) [address] [place], [address], 12/14/2023 08:34:34 12/13/19 24 12/14/2023 COMP. METAB OLIC PANEL (14) BUN 13 mg/dL 6-24 Not Available [facility] ([facility]) [address] [place], [address], 12/14/2023 08:34:34 12/13/19 24 12/14/2023 COMP. METAB OLIC PANEL (14) creatinine 0.84 mg/dL 0.57-1 .00 Not Available [facility] ([facility]) [address] [place], [address], 12/14/2023 08:34:34 12/13/19 24 12/14/2023 COMP. METAB OLIC PANEL (14) eGFR 88 mL/mi n/1.7 3 >59 Not Available [facility] ([facility]) [address], [place], [address], 12/14/2023 08:34:34 12/13/19 24 12/14/2023 COMP. METAB OLIC PANEL (14) BUN/creatini ne ratio 15 9-23 Not Available [facility]) [address], [place], [address], 12/14/2023 08:34:34 12/13/19 24 12/14/2023 COMP. METAB OLIC PANEL (14) sodium 140 mmol/ L 134-14 4 Not Available [facility] ([facility]) [address], [place], [address], 12/14/2023 08:34:34 12/13/19 24 12/14/2023 COMP. METAB OLIC PANEL (14) potassium 3.7 mmol/ L 3.5-5. 2 Not Available [facility] ([facility]) [address], [place], [address], 12/14/2023 08:34:34 12/13/19 24 12/14/2023 COMP. METAB OLIC PANEL (14) chloride 99 mmol/ L 96-106 Not Available [facility] ([facility]) [address], [place], [address], 12/14/2023 08:34:34 12/13/19 24 12/14/2023 COMP. METAB OLIC PANEL (14) carbon dioxide, total 25 mmol/ L 20-29 Not Available [facility] ([facility]) [address], [place], [address], 12/14/2023 08:34:34 12/13/19 24 12/14/2023 COMP. METAB OLIC PANEL (14) calcium 9.6 mg/dL 8.7-10 .2 Not Available [facility] ([facility]) [address], [place], [address], 12/14/2023 08:34:34 12/13/19 24 12/14/2023 COMP. METAB OLIC PANEL (14) protein, total 7.6 g/dL 6.0-8. 5 Not Available [facility] ([facility]) [address], [place], [address], 12/14/2023 08:34:34 12/13/19 24 12/14/2023 COMP. METAB OLIC PANEL (14) albumin 4.2 g/dL 3.9-4. 9 Not Available [facility] ([facility]) [address], [place], [address], 12/14/2023 08:34:34 12/13/19 24 12/14/2023 COMP. METAB OLIC PANEL (14) globulin, total 3.4 g/dL 1.5-4. 5 Not Available [facility] ([facility]) [address] [place], [address], 12/14/2023 08:34:34 12/13/19 24 12/14/2023 COMP. METAB OLIC PANEL (14) A/G ratio 1.2 1.2-2. 2 Not Available [facility] ([facility]) [address] [place], [address], 12/14/2023 08:34:34 12/13/19 24 12/14/2023 COMP. METAB OLIC PANEL (14) bilirubin, total 0.4 mg/dL 0.0-1. 2 Not Available [facility] ([facility]) [address], [place], [address], 12/14/2023 08:34:34 12/13/19 24 12/14/2023 COMP. METAB OLIC PANEL (14) alkaline phosphatase 95 IU/L 44-121 Not Available [facility]) [address] [place], [address], 12/14/2023 08:34:34 12/13/19 24 12/14/2023 COMP. METAB OLIC PANEL (14) AST (SGOT) 14 IU/L 0-40 Not Available [facility] ([facility]) [address] [place], [address], 12/14/2023 08:34:34 12/13/19 24 12/14/2023 COMP. METAB OLIC PANEL (14) ALT (SGPT) 12 IU/L 0-32 Not Available [facility] ([facility]) [address] [place], [address], 12/14/2023 08:34:34 12/13/19 24 12/14/2023 HEMOG LOBIN A1C hemoglobin A1C 5.2 % 4.8-5. 6 Predi abete s: 5.7 - 6.4 Diabe candi: >6.4 Glyce aidan contr ol for adult s with diabe candi: <7.0 Not Available [facility] ([facility]) [address] [place], [address], 12/14/2023 08:34:35 12/13/19 24 12/14/2023 PROGE STERO NE progesterone 2.9 NG/mL Folli cular phase 0.1 - 0.9 Lutea l phase 1.8 - 23.9 Ovula tion phase 0.1 - 12.0 Pregn ant First trime ster 11.0 - 44.3 Secon d trime ster 25.4 - 83.3 Third trime ster 58.7 - 214.0 Postm enopa usal 0.0 - 0.1 Not Available [facility] ([facility]) [address] [place], [address], 12/14/2023 08:34:36 12/13/19 24 12/14/2023 ESTRA DIOL estradiol 101.0 pg/mL Adult Femal e Range Folli cular phase 12.5 - 166.0 Ovula tion phase 85.8 - 498.0 Lutea l phase 43.8 - 211.0 Postm enopa usal <6.0 - 54.7 Pregn yuly 1st trime ster 215.0 - >4300 .0 Vaishali ECLIA metho dolog y Not Available [facility] ([facility]) [address], [place], [address], 12/14/2023 08:34:36 12/13/19 24 12/14/2023 CBC WITH DIFFE RENTI AL/PL ATELE T WBC 7.6 x10e3 /uL 3.4-10 .8 Not Available [facility] ([facility]) [address] [place], [address], 12/14/2023 08:34:37 12/13/19 24 12/14/2023 CBC WITH DIFFE RENTI AL/PL ATELE T RBC 4.72 x10e6 /uL 3.77-5 .28 Not Available [facility] ([facility]) [address] [place], [address], 12/14/2023 08:34:37 12/13/19 24 12/14/2023 CBC WITH DIFFE RENTI AL/PL ATELE T hemoglobin 13.8 g/dL 11.1-1 5.9 Not Available [facility] ([facility]) [address] [place], [address], 12/14/2023 08:34:37 12/13/19 24 12/14/2023 CBC WITH DIFFE RENTI AL/PL ATELE T hematocrit 40.2 % 34.0-4 6.6 Not Available [facility] ([facility]) [address] [place], [address], 12/14/2023 08:34:37 12/13/19 24 12/14/2023 CBC WITH DIFFE RENTI AL/PL ATELE T MCV 85 fL 79-97 Not Available [facility] ([facility]) [address] [facility], [place], [address], 12/14/2023 08:34:37 12/13/19 24 12/14/2023 CBC WITH DIFFE RENTI AL/PL ATELE T MCH 29.2 pg 26.6-3 3.0 Not Available [facility] ([facility]) [address], [place], [address], 12/14/2023 08:34:37 12/13/19 24 12/14/2023 CBC WITH DIFFE RENTI AL/PL ATELE T MCHC 34.3 g/dL 31.5-3 5.7 Not Available [facility] ([facility]) [address], [place], [address], 12/14/2023 08:34:37 12/13/19 24 12/14/2023 CBC WITH DIFFE RENTI AL/PL ATELE T RDW 13.0 % 11.7-1 5.4 Not Available [facility] ([facility]) [address] [facility] [facility], [place], [address], 12/14/2023 08:34:37 12/13/19 24 12/14/2023 CBC WITH DIFFE RENTI AL/PL ATELE T platelets 441 x10e3 /uL 150-45 0 Not Available [facility] ([facility]) [address] [facility] [facility], [place], [address], 12/14/2023 08:34:37 12/13/19 24 12/14/2023 CBC WITH DIFFE RENTI AL/PL ATELE T neutrophils 65 % notest ab. Not Available [facility] ([facility]) [address] [facility] [facility], [place], [address], 12/14/2023 08:34:37 12/13/19 24 12/14/2023 CBC WITH DIFFE RENTI AL/PL ATELE T lymphs 22 % notest ab. Not Available [facility] ([facility]) [address] [facility], [place], [address], 12/14/2023 08:34:37 12/13/19 24 12/14/2023 CBC WITH DIFFE RENTI AL/PL ATELE T monocytes 6 % notest ab. Not Available [facility] ([facility]) [address] [facility], [place], [address], 12/14/2023 08:34:37 12/13/19 24 12/14/2023 CBC WITH DIFFE RENTI AL/PL ATELE T eos 6 % notest ab. Not Available [facility] ([facility]) [address] [facility], [place], [address], 12/14/2023 08:34:37 12/13/19 24 12/14/2023 CBC WITH DIFFE RENTI AL/PL ATELE T basos 1 % notest ab. Not Available [facility] ([facility]) [address] [facility], [place], [address], 12/14/2023 08:34:37 12/13/19 24 12/14/2023 CBC WITH DIFFE RENTI AL/PL ATELE T neutrophils (absolute) 4.9 x10e3 /uL 1.4-7. 0 Not Available [facility] ([facility]) [address] [facility], [place], [address], 12/14/2023 08:34:37 12/13/19 24 12/14/2023 CBC WITH DIFFE RENTI AL/PL ATELE T lymphs (absolute) 1.7 x10e3 /uL 0.7-3. 1 Not Available [facility] ([facility]) [address] [facility], [place], [address], 12/14/2023 08:34:37 12/13/19 24 12/14/2023 CBC WITH DIFFE RENTI AL/PL ATELE T monocytes(ab solute) 0.5 x10e3 /uL 0.1-0. 9 Not Available [facility] ([facility]) [address] [place], [address], 12/14/2023 08:34:37 12/13/19 24 12/14/2023 CBC WITH DIFFE RENTI AL/PL ATELE T eos (absolute) 0.4 x10e3 /uL 0.0-0. 4 Not Available [facility] ([facility]) [address] [facility], [place], [address], 12/14/2023 08:34:37 12/13/19 24 12/14/2023 CBC WITH DIFFE RENTI AL/PL ATELE T baso (absolute) 0.1 x10e3 /uL 0.0-0. 2 Not Available [facility] ([facility]) [address] [place], [address], 12/14/2023 08:34:37 12/13/19 24 12/14/2023 CBC WITH DIFFE RENTI AL/PL ATELE T immature granulocytes 0 % notest ab. Not Available [facility] ([facility]) [address] [place], [address], 12/14/2023 08:34:37 12/13/19 24 12/14/2023 CBC WITH DIFFE RENTI AL/PL ATELE T immature grans (abs) 0.0 x10e3 /uL 0.0-0. 1 Not Available [facility] ([facility]) [address] [place], [address], 12/14/2023 08:34:37 12/13/19 24 12/14/2023 FSH AND LH LH 10.8 mIU/m L Adult Femal e Range Folli cular phase 2.4 - 12.6 Ovula tion phase 14.0 - 95.6 Lutea l phase 1.0 - 11.4 Postm enopa usal 7.7 - 58.5 Not Available [facility] ([facility]) [address] [place], [address], 12/14/2023 08:34:38 12/13/19 24 12/14/2023 FSH AND LH FSH 10.8 mIU/m L Adult Femal e Range Folli cular phase 3.5 - 12.5 Ovula tion phase 4.7 - 21.5 Lutea l phase 1.7 - 7.7 Postm enopa usal 25.8 - 134.8 Not Available [facility] ([facility]) [address] [place], [address], 12/14/2023 08:34:38 01/03/20 24 01/05/2024 IGP, APTIM A HPV, RFX 16/18 ,45 HPV aptima Negati ve negati ve This nucle ic acid ampli ficat ion test detec ts fourt een high- risk HPV types (16,1 8,31, 33,35 ,39,4 5,51, 52,56 ,58,5 9,66, 68) witho ut diffe renti ation . Not Available [facility] ([facility]) [address] [facility], [place], [address], 01/08/2024 11:10:32 01/03/20 24 01/08/2024 IGP, APTIM A HPV, RFX 16/18 ,45 diagnosis: Commen t NEGAT ERLINDA FOR INTRA EPITH ELIAL LESIO N OR MALIG YULIA . THIS SPECI MEN WAS RESCR EENED PART OF OUR QUALI TY CONTR OL PROGR AM. Not Available [facility] ([facility]) [address] [facility], [place], [address], 01/08/2024 11:10:32 01/03/20 24 01/08/2024 IGP, APTIM A HPV, RFX 16/18 ,45 specimen adequacy: Commen t Satis facto ry for evalu ation . Endoc ervic al and/o r squam ous metap lasti c cells (endo cervi antonia compo nent) are prese nt. Not Available [facility] ([facility]) [address] [place], [address], 01/08/2024 11:10:32 01/03/20 24 01/08/2024 IGP, APTIM A HPV, RFX 16/18 ,45 clinician provided ICD10: Arash martinez Z01.4 19 Not Available [facility] ([facility]) [address] [place], [address], 01/08/2024 11:10:32 01/03/20 24 01/08/2024 IGP, APTIM A HPV, RFX 16/18 ,45 performed by: Arash resendiz, Cytot echno logis t (ASCP ) Not Available [facility] ([facility]) [address] [place], [address], 01/08/2024 11:10:32 01/03/20 24 01/08/2024 IGP, APTIM A HPV, RFX 16/18 ,45 QC reviewed by: Arash schultz, Cytot echno logis t (ASCP ) Not Available [facility] ([facility]) [address] [place], [address], 01/08/2024 11:10:32 01/03/20 24 01/08/2024 IGP, APTIM A HPV, RFX 16/18 ,45 . . Not Available [facility] ([facility]) [address] [place], [address], 01/08/2024 11:10:32 01/03/20 24 01/08/2024 IGP, APTIM [...] ts do occur . Not Available [facility] ([facility]) [address] [place], [address], 01/08/2024 11:10:32 01/03/20 24 01/08/2024 IGP, APTIM A HPV, RFX 16/18 ,45 test methodology: Commen t This liqui d based ThinP rep(R ) pap test was darline palumbo with the use of an image guide zoran rose Not Available [facility] ([facility]) [address] [place], [address], 01/08/2024 11:10:32 01/03/20 24 01/08/2024 IGP, APTIM A HPV, RFX 16/18 ,45 HPV genotype reflex Commen t Crite tomeka not met, HPV Genot ype not perfo rmed. Not Available [facility] ([facility]) [address] [place], [address], 01/08/2024 11:10:32 05/29/20 24 05/30/2024 TSH+F REE T4 TSH 0.222 uIU/m L 0.450- 4.500 below low normal Not Available [facility] ([facility]) [address] [place], [address], 05/30/2024 12:16:57 05/29/20 24 05/30/2024 TSH+F REE T4 T4,free(dire ct) 2.04 NG/dL 0.82-1 .77 above high normal Not Available [facility] ([facility]) [address] [place], [address], 05/30/2024 12:16:57 05/29/20 24 05/30/2024 TRIIO DOTHY TERRI E (T3), FREE triiodothyro nine (T3), free 2.8 pg/mL 2.0-4. 4 Not Available [facility] ([facility]) [address] [place], [address], 05/30/2024 12:16:58 02/02/20 24 01/31/2024 US, thyro id No observ ation record ed. [facility] [address] [facility] , [place], [address], 02/05/2024 14:51:52 11/26/19 25 11/23/2024 US, thyro id No observ ation record ed. [address], [place], [address], 11/26/2024 10:53:29 12/05/19 25 12/04/2024 CT, neck, soft tissu e, w/ contr ast No observ ation record ed. [address], [place], [address], 12/04/2024 21:39:29 12/12/19 25 12/10/2024 PET, skull base to mid-t high No observ ation record ed. [address], [place], [address], 12/11/2024 16:25:40 Result Notes None recorded. Problems Name Problem SNOMED Code Status Onset Date Resolution Date Notes Provider Name and Address Organization Details Recorded Time Asthma 334949365 Active 2020 NATALY SCHMIDT Attn: Mike leal,[address] [facility], [place], [address], [place] - SIF 2 10:20:06 Hypothyroidism [id number] Active 2020 NATALY SCHMIDT Attn: Mike leal,2040 [facility], [place], [address], [place] [facility] 2 10:20:04 Malignant tumor of thyroid gland 007277100 Active 2020 2014 at [facility]. NATALY SCHMIDT Attn: Mike g,[address] [facility], [place], [address], [place] - [facility] 2 10:20:02 Essential hypertension 37409083 Active 2021 NATALY SCHMIDT Attn: Mike leal,[address] [facility], [place], [address], [facility] 10:40:36 Problem Notes None recorded. Procedures Surgical History Date Name Laterality Status Provider Name and Address Organization Details Recorded Time 01/03/20 24 Date of Last Pap Smear completed Kaci Andersen RN [facility] 01/09/2024 16:51:28 08/28/19 04 loop electrosurgical excision procedure completed ALEXANDER Lopez Attn: Accounting, [address] [facility], [place], [address], [facility] 01/03/2024 14:52:28 Tubal Ligation completed Shayna Duran [facility] 01/03/2024 13:31:02 Endometrial Ablation completed Shayna Duran [facility] 01/03/2024 13:31:11 Imaging Results Imaging Date Name Status LastModified by Organiz ation Details LastModified Time 01/31/2024 [place], thyroid completed [address] [place] [address] [place], [address], 02/05/2024 14:51:52 11/23/2024 US, thyroid completed [facility] [address] [address], [place], [address], 11/26/2024 10:53:29 12/04/2024 CT, neck, soft tissue, w/ contrast completed [address], [address], 12/04/2024 21:39:29 12/10/2024 PET, skull base to mid-thigh completed [address], [address], 12/11/2024 16:25:40 Procedure Notes None recorded. Medical Equipment None Reported. Allergies Allergen ID Allergen Name Allergen Category Reaction Reaction Severity Criticality Documentation Date Start Date Code Code System Note Provider Name and Address Organization Details Recorded Time 691007 amoxicill in medicatio n rash Not available Not available 10/02/2020 723 RxNorm Brandee Brizuela [place] null, [place] - [place] 1 10:25:56 162992 Bactrim medicatio n hives severe Not available 09/14/2021 39468 9 RxNorm Naheed Owens RN null, [place] - [facility] 2 15:01:06 Medications Name Sig Start Date Stop Date [...] Updated DateTime 3 173.99 cm 37.9 kg/m2 174411. 57 g 100 % 100 % 98 /min 16 /min 122 mm[Hg] 80 mm[Hg] Samantha Miller [place] - [facility] 3 10:38:57 Date Recorded Body height Body mass index (BMI) Body weight Oxygen saturation Oxygen saturation in Arterial blood by Pulse oximetry Heart rate Systolic blood pressure Diastolic blood pressure Provider Name and Address Organization Details Last Updated DateTime 3 173.99 cm 37.9 kg/m2 753241. 87 g 96 % 96 % 83 /min 125 mm[Hg] 85 mm[Hg] Brandee Brizuela [place] - [facility] 3 09:48:26 Date Recorded Respiratory rate Provider Name a nd Address Organization Details Last Updated DateTime 08/09/2023 18 /min NATALY SCHMIDT Attn: Accounting,[address] [place], [address], [place] - [place] 08/09/2023 16:58:48 Date Recorded Body height Body mass index (BMI) Body weight Oxygen saturation Oxygen saturation in Arterial blood by Pulse oximetry Heart rate Systolic blood pressure Diastolic blood pressure Provider Name and Address Organization Details Last Updated DateTime 173.99 cm 38.3 kg/m2 232551. 85 g 99 % 99 % 106 /min 135 mm[Hg] 85 mm[Hg] Brandee Brizuela [place] - [place] 09:04:26 Date Recorded Respiratory rate Body temperature Heart rate Provider Name and Address Organization Details Last Updated DateTime 12/13/2023 18 /min 98.7 [degF] 90 /min NATALY SCHMIDT Attn: Accounting, [address] [place], [address], [place] 12/14/2023 08:37:43 Date Recorded Body height Body mass index (BMI) Body weight Systolic blood pressure Diastolic blood pressure Provider Name and Address Organization Details Last Updated DateTime 01/03/2024 173.99 cm 38.4 kg/m2 421833.0 8 g 130 mm[Hg] 84 mm[Hg] MYLES Ramirez [place] - [place] 13:48:08 Date Recorded Body height Body mass index (BMI) Body weight Oxygen saturation Oxygen saturation in Arterial blood by Pulse oximetry Heart rate Systolic blood pressure Diastolic blood pressure Provider Name and Address Organization Details Last Updated DateTime 173.99 cm 39.6 kg/m2 298261. 49 g 99 % 99 % 92 /min 129 mm[Hg] 85 mm[Hg] Brandee Brizuela [place] - [place] 09:14:13 Date Recorded Respiratory rate Provider Name a mo Address Organization Details Last Updated DateTime 05/29/2024 18 /min NATALY SCHMIDT Attn: Accounting,[address] [place], [address], [place] - [place] 05/29/2024 09:29:15 Social History Question Answer Notes LastModified by Organizat ion Details LastModified Time Tobacco Smoking Status Never Smoker Brandee Brizuela MA [facility], [place] - [facility] 10/02/2020 10:34:10 Do You Have An Advance [...] Anxious, Or Unable To Sleep At Night)? [id number] Information not available 09/14/2021 Do You Use [...] Skin Problems N Anemia N Heart Attack (AK) N Anxiety Disorder Y Diabetes N Muscle, [...] 4 completed NATALY SCHMIDT Attn: Accounting,[address] [place], [address], [place] [facility] 05/29/2024 10:40:21 Past Encounters Encounter ID Performer Location Encounter Start Date Encounter Closed Date Diagnosis/Indication Diagnosis SNOMED-CT Code Diagnosis ICD10 Code Diagnosis Note [id number] NATALY RODRIGUEZ [facility] [address] [place] [address] 10/02/2020 08:05:35 10/02/2020 11:53:32 Depressive disorder 72848561 F32.9 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 She has thryoid surgery and has been following with [facility] endocrinol ogy. [facility]. Last US was two years ago and was normal. Has not has TSH checked in a long time. She needs new endocrinol ogy in the area as she has trouble getting to [facility]. - records- endo- TSH Asthma 340851561 J45.90 9 Patient diagnosed with asthma as child. Has not had to use inhaler in a while. She does have inhaler on hand but it is a few years old. Dysphagia 29819724 R13.1 0 Patient started having choking episodes [...] cancer. denies reflux or heart burn. Overweight 633209087 E66 .3 per patient she is overweight . Trouble losing it. [id number] Constantino wiggins MD [facility] [address] [place] [address] 09/14/2021 10:49:16 09/16/2021 07:26:32 Laryngitis 79464219 J04.0 x3 daysvoice restincrea se fluid intakehumi difier at bedsidehot tea with lemon/josefa ysalt water garglesOTC cough suppressan tf/u with any new or worsening sx Viral syndrome 264633099 B34.9 PCR COVID Depression screening 171 784554 Z13.31 PHQ 10 [id number] Constantino wiggins MD [facility] [address] [place] [address] 01/12/2022 16:11:34 01/13/2022 11:05:26 Malignant tumor of thyroid gland 277850751 C73 20 lb weight gain x3 monthsno change in diet or activityat tributes to thyroid, will re-check todaytakes 2 tabs of levo 112 mcg and 1 tab on monday Depression screening 171 299586 Z13.31 PHQ 1 Otalgia of left ear 1010 182220 H92.02 x3 wksunknown causefeels like popping and pressure, a/w headachesP Ex- mild dried cerumen adhered to L TM, no tragal/pin na tenderness reassured pttrial debrox ear dropsf/u if symptoms do not improve Elevated blood-pressure reading without diagnosis of hypertension 316180807 R03.0 BP 140/86, 158/100att ributes headaches to ear pressureno other sxf/u in 1 wk for BP check [id number] Constantino wiggins MD [facility] [address] [place] [address] 01/20/2022 10:11:06 01/21/2022 08:51:18 [id number] Constantino wiggins MD [facility] [address] [place] [address] 02/02/2022 15:19:49 02/03/2022 14:29:43 Essential hypertension 94612825 I10 02/02/22: BP 132/88c/w HCTZ 25 today 158/1025/1 04/18: BP 140/86, 158/100sta rt HCTZ 25f/u in 1 wk for BP check [id number] Constantino wiggins MD [facility] [address] [place] [address] 10/18/2022 10:46:41 10/18/2022 11:24:16 Depression screening 819322165 Z13.31 PHQ 0 Screening for malignant neoplasm of cervix 927760606 Z12.[address] Lopes 04/2022, normaltuba l ablation 05/2022, no periods since procedure Screening for malignant neoplasm of breast 034047567 Z12.39 last mammogram 8 yrs agoout of insurance in 1 wk- unable to completef/ u once receive insurance and will order Morbid obesity 318580937 E66.01 due for routine labs Hypothyroidism 60342539 E03.9 re-check today Malignant tumor of thyroid gland 810971089 C73 10/18/22:wa s following with U in 2019will [...] checked in a long time. Essential hypertension 05184820 I10 10/18/22:BP 124/82c/w HCTZ 25 02/02/22: BP 132/88c/w HCTZ 25 today 158/1025/1 04/18: BP 140/86, 158/100sta rt HCTZ 25f/u in 1 wk for BP check Asthma 349951411 J45.90 9 uses PRN with season changes [id number] Constantino wiggins MD [facility] [address] [place] [address] 07/19/2023 10:33:17 07/19/2023 11:30:46 Essential hypertension 35363668 I10 07/19/23:B P 122/80c/w HCTZ 25 10/18/22:BP 124/82c/w HCTZ 25 02/02/22: BP 132/88c/w HCTZ 25 today 158/1025/1 04/18: BP 140/86, 158/100sta rt HCTZ 25f/u in 1 wk for BP check Hypothyroidism 16937797 E03.9 07/19/23:t akes 112 mcg BID everyday [...] thyroid STAT Malignant tumor of thyroid gland 333528372 C73 07/19/23:r efer to endocrine, wants to [...] thryoid surgery and has been following with [facility] endocrinol ogy. She has had trouble getting into appointmen ts due to COVID. Last US was two years ago and was normal. Has not has TSH checked in a long time. Depression screening 171 598361 Z13.31 PHQ 0 Screening for malignant neoplasm of cervix 768436392 Z12.[address] Lopes 04/2022, normaltuba l ablation 05/2022, no periods since procedure Screening for malignant neoplasm of breast 233361735 Z12.39 07/19/23:w ants to wait until after her weddingwil l order at f/u appt 10/202309/28/22:las t mammogram 8 yrs agoout of insurance in 1 wk- unable to completef/ u once receive insurance and will order Obesity 890608548 E66.9 lost 20 lbs since 09/2022 Chronic cough 06818068 R 05.3 x1 yroccurs in the morningcou ghs up clear sputumslee ps with mouth open and snoresdeni es GERD sxh/o mild asthmaPEx- nltrial humidifier in bedroomtri al antihistam ine Snoring 27328394 R06.83 will discuss sleep study at f/u visit [id number] Constantino wiggins MD [facility] [address] [place] [address] 08/09/2023 09:37:00 08/09/2023 10:44:22 Multiple skin tags 877567110 L91.8 skin tag removalPEx - skin tag to R sided bra line, R shoulder, abdomen, and L axillatole rated procedure [facility] pathology [id number] Constantino wiggins MD [facility] [address] [place] [address] 12/13/2023 08:50:01 12/13/2023 10:03:39 Malignant tumor of thyroid gland 799938027 C73 12/13/23: requesting endocrine referral, refill levo [...] thryoid surgery and has been following with [facility] endocrinol yoni. She has had trouble getting into appointmen ts due to COVID. Last US was two years ago and was normal. Has not has TSH checked in a long time. Hypothyroidism 97436814 E03.9 12/13/23: continue 112 mcg BID, requesting [...] endocrine and ordered US thyroid STAT Obesity 787699427 E66.9 BMI 38.3discus sed increasing exercise and healthier food options, high protein, low fat diet Screening for malignant neoplasm of breast 967525678 Z12.39 12/13/23: due for mammo 07/19/23:w ants to wait until after her weddingwil l order at f/u appt 10/202309/28/22:las t mammogram 8 yrs agoout of insurance in 1 wk- unable to completef/ u once receive insurance and will order Screening for malignant neoplasm of cervix 658964132 Z12.4 12/13/23: requesting new PHYSICAL MEDICINE PHYSICIAN referral completed by Dr. Lopes 04/2022, normaltuba l ablation 05/2022, no periods since procedure Non-menopa usal hot flash 1472700252 14831 R23.2 wants to know if she is going through menopausen ight sweats x1 morequesti ng to check hormones Productive cough -green sputum 276486491 R09.3 x6 daysno relief with OTC medswill treat with abx Nasal congestion 4250426 0 R09.81 no relief with nasal decongesta nt pillstrial flonase nasal spray rx Essential hypertension 67467196 I10 12/13/23BP 135/85c/w HCTZ 25, refill 07/19/23:B P 122/80c/w HCTZ 25 10/18/22:BP 124/82c/w HCTZ 25 02/02/22: BP 132/88c/w HCTZ 25 today 158/1025/1 04/18: BP 140/86, 158/100sta rt HCTZ 25f/u in 1 wk for BP check Asthma 014875269 J45.90 9 uses PRN with season changes Depression screening 171 581148 Z13.31 PHQ 0 [id number] Luke Brito MD [place] [address] OB [address] [facility] [address] [place] [address] 01/03/2024 13:07:50 01/04/2024 16:09:25 Screening mammography 56121538 Z12.31 Patient educated on the importance of annual breast cancer screenings with mammograph y. Patient's pcp already ordered screening mammogram. pt advised to complete mammogram. Routine gy necologic examination done 6208434296 9101 Z01.419 -Educated on the importance of [...] sunscreen. Body mass index 30+ - obesity 580801053 Z68.38 Pt educated on risks and importance of lifestyle modificati ons. Pt reports will continue to follow up with PCP. [id number] Robbin Woodard MD [facility] [address] [place] [address] 05/29/2024 08:44:10 05/29/2024 09:41:41 Depression screening 757892935 Z13.31 PHQ 0 Dysphagia 97776881 R13.1 0 x2 monthsstre ss inducedocc urs with meats, chicken, bread, tries to swallow and then vomitsno odynophagi aPEx- nlordered barium swallow study Hypothyroidism 03433868 E03.9 05/29/24: US thyroid 01/31/24- thyroidect latha [...] thyroid STAT Administra tion of influenza vaccine 78924171 Z23 Health Concerns Section Related Observation LastModified by Organization Detai ls LastModified Time None Recorded Concern Status LastModified by Organization Details LastModified Time None Recorded Advance Directives Directive N: Payers Encounter Date Sequence Insurance Name Policy Number Policy Ozuna Covered Member ID Ozuna Member ID Guarantor Name 07/19/2023 1 [facility] (MEDICAID HMO) [id number] [facility] [id number] [facility] 07/19/2023 1 [place] [id number] Sara Loraine [facility] [id number] 2 [facility] 08/09/2023 1 [facility] (MEDICAID HMO) [id number] [facility] [id number] [facility] 08/09/2023 1 [place] [id number] [facility] [id number] 2 [facility] 12/13/2023 1 [place] [id number] [id number] Sara [facility] [id number] 2 [facility] 01/03/2024 1 [place] [id number] [id number] [id number] 2 [facility] 05/29/2024 1 [place]) [id number] [id number] Sara Baron [facility] [id number] 2 Sara [facility] Notes Date Note Type Note Provider [...] Denies SOB. NATALY SCHMIDT Attn: Accounting,[address] [place], [address], [facility] - [facility] 07/19/2023 14:02:52 08/09/2023 text/html Pt presents for skin tag removal. NATALY SCHMIDT Attn: Accounting,[address] [place], [address], [place] 08/09/2023 16:59:06 12/13/2023 text/html Sara [...] due to ablation. She is requesting an dishwasher busser referral. She reports her gums are receding with minimal bleeding and concerned that it may be due to her hypothyroidism. NATALY SCHMIDT Attn: Accounting,[address] [place], [address], [facility] 12/14/2023 08:38:19 01/03/2024 [...] any complaints. ALEXANDER Lopez Attn: Accounting[address] [place], [address], [facility] 01/03/2024 14:57:06 05/29/2024 [...] Denies odynophagia. NATALY SCHMIDT Attn: Accounting,[address] [place], [address], [facility] 05/29/2024 10:56:00 OBGyn Episode Ob Episode Information Episode Created Date Number of Fetuses Patient Bloodtype Patient rh Status Prepregnancy Weight lbs Domestic Partner Domestic Partner Phone Father Name Securities Broker Status 10/02/19 21 1 CLOSED Fetus Data First Name Last Name Admitted to NICU Weight (g) Sex Living Outcome Pediatric Complications Fetus ID Race Codes Race Delivery Type [id number] Kole Calculation Initial Kole Date Initial Exam [...] Domestic Partner Domestic Partner Phone Father Name Securities Broker Status 10/02/19 21 1 CLOSED Fetus Data First Name Last Name Admitted to NICU Weight (g) Sex Living Outcome Pediatric Complications Fetus ID Race Codes Race Delivery Type 31809 Kole Calculation Initial Kole Date Initial Exam [...] Domestic Partner Domestic Partner Phone Father Name Securities Broker Status 10/02/19 21 1 CLOSED Fetus Data First Name Last Name Admitted to NICU Weight (g) Sex Living Outcome Pediatric Complications Fetus ID Race Codes Race Delivery Type 90779 Kole Calculation Initial Kole Date Initial Exam [...] Domestic Partner Domestic Partner Phone Father Name Securities Broker Status 10/02/19 21 1 CLOSED Fetus Data First Name Last Name Admitted to NICU Weight (g) Sex Living Outcome Pediatric Complications Fetus ID Race Codes Race Delivery Type [id number] Kole Calculation Initial Kole Date Initial Exam [...]
== END 2024-12-25 12:38 | disposition home or self-care (01) ==
PROVIDERS: PCP Physician Assistant; Visit Provider Internal Medicine
DX: C73 Malignant neoplasm of thyroid gland (principal); C79.9 Secondary malignant neoplasm of unspecified site; R59.0 Localized enlarged lymph nodes
CPT/HCPCS: 38505; 76942; 88184; 88305